=== PATIENT | female | born 1980 | race Caucasian/White ===

== ENCOUNTER 2018-06-11 10:46 | Emergency (ER) | payer BC, OTHER ==
--- OUTSIDE RECORDS SUMMARY | 2018-06-11 10:59 | XMS REPORT | Continuity of Care Document ---
:1980 Author Organization Interface Problems Problem Status Onset Classification Date Comments Source Date Reported Other 11/24/19 06/02/2018 [place] postprocedural 18 [place] complications and disorders of digestive system Urinary tract 11/10/19 05/24/2018 [place] infection, site 18 [place] not specified Urinary tract 11/05/19 05/24/2018 [place] infection 18 [place] Other malaise 05/01/19 07/28/2017 [place] 18 [place] Malaise 04/21/19 07/28/2017 [place] 18 [place] POSSIBLE KIDNEY Active 05/23/19 [place] STONES 16 [place] Discharge 05/23/19 05/26/2015 [place] Diagnosis: Acute 16 [place] lower UTI Discharge 05/23/19 05/26/2015 [place] Diagnosis: Anemia 16 [place] Discharge 05/23/19 05/26/2015 [place] Diagnosis: Acute 16 [place] gastritis Discharge 09/30/19 10/02/2014 [place] Diagnosis: Acute 15 [place] urinary tract infection URINARY PROBLEM Active 09/29/19 [place] 15 [place] Ureteric Active 01/08/20 Problem 09/30/2017 Data migrated [facility] OPID stone<sup>1</sup> 14 from [facility] [place], 09/05/14. [place] Ureteric Active 01/08/20 Problem 06/02/2018 Data migrated [facility] [place] stone<sup>2</sup> 14 from [facility] [place] [facility] on 09/05/14. LOWER RIGHT SIDE Active 12/29/19 [place] ABDOMINAL PAIN 14 [place] RENAL STONE Active 12/29/19 [place] 14 [place] FAST HEART RATE Active 10/22/19 [place] 12 [place] CHEST PAIN Active 10/19/19 [place] 12 [place] Abdominal Active Problem 06/02/2018 right side [facility] [place] pain<sup>1</sup> abdominal [place] pain Acid reflux Active Problem 06/02/2018 [place] Hiatal hernia Active Problem 06/02/2018 [place] Gastro-esophageal 05/24/2018 [place] reflux disease [place] without esophagitis Personal history 06/02/2018 [place] of nicotine [place] dependence Ileus, unspecified 06/02/2018 [place] Diaphragmatic 06/02/2018 [place] hernia without [place] obstruction or gangrene Dehydration 06/02/2018 [place] Anemia in other 06/02/2018 [place] chronic diseases [place] classified elsewhere Gastro-esophageal 05/28/2018 [place] reflux disease [place] with esophagitis Chronic 05/28/2018 [place] cholecystitis [place] CALCULUS OF KIDNEY Active [place] Medications Medication Details Route Status Patient Ordering Order Source Instructions Provider Date Ondansetron 4 MG 4 mg=1 tab, PO, Active Oral Tablet Q8H, PRN Nausea, 2017 [place] [Zofran] # 15 tab, 0 [place] Refill(s) Acetaminophen 325 1 tab, PO, Q6H, Active MG / Hydrocodone PRN Pain Score 2017 [place] Bitartrate 5 MG 1-3, 0 Refill(s) [place] Oral Tablet [[place] 5/325] Acetaminophen 325 1 tab, Route: PO, No Longer MG / Hydrocodone Drug Form: TAB, Active 2017 [place] Bitartrate 5 MG Dosing Weight [place] Oral Tablet [[place] 67.898, kg, Q6H, 5/325] PRN Pain Score 1-3, Start date: 11/12/17 20:02:00 CDT, Duration: 30 day, Stop date: 12/12/17 20:01:00 CDTNotes: (Same as: [place] 325/5) Do not exceed 4gm/day of acetaminophen. Saline Flush 0.9% 10 ml, Route: No Longer IVP, Drug Form: Active 2018 [place] INJ, Dosing [place] Weight 67.841, kg, PRN, PRN Line Flush, Start date: 11/11/17 15:47:00 CDT, Duration: 30 day, Stop date: 12/11/17 15:46:00 CDTNotes: (Same as: BD Posiflush) Ondansetron 4 mg, 2 mL, No Longer Route: IVP, Drug Active 2017 [place] form: INJ, Q6H, [place] Dosing Weight 67.841, kg, PRN Nausea & Vomiting, Start date: 11/11/17 15:47:00 CDT, Duration: 30 day, Stop date: 12/11/17 15:46:00 CDTNotes: (Same as: Shikha) MEDICATION WASTE Product Size: 4 mg Product Wasted: ___ mg Morphine 2 mg, 1 mL, No Longer Route: IVP, Drug Active 2017 [place] form: SOLN, Q4H, [place] Dosing Weight 67.841, kg, PRN Pain Score 7-10, Start date: 11/11/17 15:47:00 CDT, Duration: 30 day, Stop date: 12/11/17 15:46:00 CDT Sodium Chloride 1,000 mL, Rate: No Longer 0.9% IV 1,000 mL 100 ml/hr, Infuse Active 2017 [place] over: 10 hr, [place] Route: IV, Dosing Weight 67.841 kg, Total Volume: 1,000, Start date: 11/11/17 15:47:00 CDT, Duration: 30 day, Stop date: 12/11/17 15:46:00 CDT, 1.76, m2 Acetaminophen 650 mg, 2 tab, No Longer Route: PO, Drug Active 2017 [place] form: TAB, Q4H, [place] Dosing Weight 67.841, kg, PRN Pain 1-3/Temp > 100.4 F, Start date: 11/11/17 15:47:00 CDT, Duration: 30 day, Stop date: 12/11/17 15:46:00 CDTNotes: Do not exceed 4 gm/day. (Same as: Tylenol) Morphine 4 mg, Route: IVP, Inactive ONCE, Dosing 2018 [place] Weight 67.841, [place] kg, Priority: STAT, Start date: 11/11/17 12:28:00 CDT, Stop date: 11/11/17 12:28:00 CDT Omnipaque 350 100 mL, Route: Inactive injectable IVP, Dosing 2018 [place] solution Weight 67.841, [place] kg, ONCALL, GFR > 45 mL/min, STAT, Start date: 11/11/17 11:18:00 CDT, Duration: 1 doses or times Sodium Chloride 1,000 mL, Infuse Inactive 0.9% (Bolus) IV Over: 1 hr, 2017 [place] Route: IV, ONCE, [place] Priority: STAT, Dosing Weight 67.841 kg, Start date: 11/11/17 10:47:00 CDT, Stop date: 11/11/17 10:47:00 CDT Zofran 4 mg, Route: IVP, Inactive Drug form: INJ, 2018 [place] ONCE, Dosing [place] Weight 67.841, kg, Priority: STAT, Start date: 11/11/17 10:47:00 CDT, Stop date: 11/11/17 10:47:00 CDT Morphine 4 mg, Route: IVP, Inactive ONCE, Dosing 2018 [place] Weight 67.841, [place] kg, Priority: STAT, Start date: 11/11/17 10:47:00 CDT, Stop date: 11/11/17 10:47:00 CDT Saline Flush 0.9% 10 mL, Route: No Longer IVP, Drug Form: Active 2018 [place] INJ, Dosing [place] Weight 67.841, kg, PRN, PRN Line Flush, Start date: 11/11/17 10:14:00 CDT, Duration: 30 day, Stop date: 12/11/17 10:13:00 CDTNotes: (Same as: BD Posiflush) Sulfamethoxazole 1 tab, PO, BID, X No Longer 800 MG / 7 day, # 14 tab, Active 2018 [place] Trimethoprim 160 0 Refill(s) [place] MG Oral Tablet [Bactrim] Acetaminophen 300 1 tab, PO, Q4H, No Longer MG / Codeine PRN Pain, X 7 Active 2018 [place] Phosphate 30 MG day, # 30 tab, 0 [place] Oral Tablet Refill(s) [Tylenol with Codeine #3] Lovenox 40 mg, 0.4 mL, Inactive Route: SUB-Q, 2017 [place] Drug form: INJ, [place] Daily, Dosing Weight 70.114, kg, Start date: 11/08/17 9:00:00 CDT, Duration: 30 day, Stop date: 12/07/17 9:00:00 CDTNotes: (Same as: Lovenox) ketOROLAC 30 mg/mL 30 mg, 1 mL, No Longer injectable Route: IVP, Drug Active 2018 [place] solution form: INJ, Q6H, [place] Dosing Weight 70.114, kg, Start date: 11/07/17 12:00:00 CDT, Duration: 4 day, Stop date: 11/11/17 6:00:00 CDTNotes: (Same as:Toradol) IV bolus must be given >15 seconds. Give IM administration slowly and deeply into the muscle. Not for use > 4 days MEDICATION WASTE Product Size: 30 mg Product Wasted: ___ mg Ondansetron 4 mg, 2 mL, Inactive Route: IVP, Drug 2017 [place] form: INJ, ONCE, [place] Dosing Weight 70.114, kg, PRN Nausea & Vomiting, Start date: 11/07/17 11:33:00 CDTNotes: (Same as: Zofran) MEDICATION WASTE Product Size: 4 mg Product Wasted: ___ mg Oxycodone 10 mg, 2 tab, Inactive Route: PO, Drug 2017 [place] form: TAB, Q4H, [place] Dosing Weight 70.114, kg, PRN Pain Score 7-10, Start date: 11/07/17 11:33:00 CDT, Duration: 30 day, Stop date: 12/07/17 11:32:00 CDTNotes: (Same as: Roxicodone) Naloxone 0.4 mg, 1 mL, Inactive Route: IVP, Drug 2017 [place] form: INJ, Q2MIN, [place] Dosing Weight 70.114, kg, PRN Narcotic Reversal, Start date: 11/07/17 11:33:00 CDT, Duration: 8 doses or times, Stop date: Limited # of timesNotes: Same as Narcan Flumazenil 0.2 mg, 2 mL, Inactive Route: IVP, Drug 2017 [place] form: INJ, PRN, [place] Dosing Weight 70.114, kg, PRN Benzodiazepine Reversal, Initial dose, Start date: 11/07/17 11:33:00 CDT, Duration: 30 day, Stop date: 12/07/17 11:32:00 CDTNotes: (Same as: Romazicon) Hydromorphone 0.5 mg, 0.5 mL, Inactive Route: IVP, Drug 2017 [place] form: INJ, Q5Min, [place] Dosing Weight 70.114, kg, PRN Pain Score 7-10, Start date: 11/07/17 10:43:00 CDT, Duration: 4 doses or times, Stop date: Limited # of timesNotes: Same as: Dilaudid Ondansetron 4 mg, 2 mL, Inactive Route: IVP, Drug 2017 [place] form: INJ, ONCE, [place] Dosing Weight 70.114, kg, PRN Nausea & Vomiting, Start date: 11/07/17 10:43:00 CDTNotes: (Same as: Zofran) MEDICATION WASTE Product Size: 4 mg Product Wasted: ___ mg Naloxone 0.4 mg, 1 mL, Inactive Route: IVP, Drug 2017 [place] form: INJ, Q2MIN, [place] Dosing Weight 70.114, kg, PRN Narcotic Reversal, Start date: 11/07/17 10:43:00 CDT, Duration: 8 doses or times, Stop date: Limited # of timesNotes: Same as Narcan Flumazenil 0.2 mg, 2 mL, Inactive Route: IVP, Drug 2017 [place] form: INJ, PRN, [place] Dosing Weight 70.114, kg, PRN Benzodiazepine Reversal, Initial dose, Start date: 11/07/17 10:43:00 CDT, Duration: 30 day, Stop date: 12/07/17 10:42:00 CDTNotes: (Same as: Romazicon) Fentanyl 25 microgram, 0.5 Inactive mL, Route: IVP, 2018 [place] Drug form: INJ, [place] Q5Min, Dosing Weight 70.114, kg, PRN Pain Score 4-6, Priority: Routine, Start date: 11/07/17 10:43:00 CDT, Duration: 4 doses or times, Stop date: Limited # of timesNotes: (Same as: Sublimaze) Preservative free. neostigmine (ANES) Route: IV, Drug Inactive form: INJ, ONCE, 2018 [place] Stop date: [place] 11/07/17 10:10:00 CDT glycopyrrolate Route: IV, Drug Inactive (ANES) form: INJ, ONCE, 2017 [place] Stop date: [facility] 11/07/17 10:10:00 CDT ondansetron (ANES) Route: IV, Drug Inactive form: INJ, ONCE, 2017 [place] Stop date: [facility] 11/07/17 10:10:00 CDT Morphine 4 mg, 1 mL, No Longer Route: IVP, Drug Active 2017 [place] form: SOLN, Q4H, [place] Dosing Weight 70.114, kg, PRN Pain Score 7-10, Start date: 11/07/17 9:51:00 CDT, Duration: 30 day, Stop date: 12/07/17 9:50:00 CDTNotes: (Same as:MORPhine Sulfate) Acetaminophen 325 1 tab, Route: PO, No Longer MG / Hydrocodone Drug Form: TAB, Active 2017 [place] Bitartrate 5 MG Dosing Weight [place] Oral Tablet [[place] 70.114, kg, Q6H, 5/325] PRN Pain Score 1-3, Start date: 11/07/17 9:51:00 CDT, Duration: 30 day, Stop date: 12/07/17 9:50:00 CDTNotes: (Same as: [place] 325/5) Do not exceed 4gm/day of acetaminophen. Zofran 4 mg, 2 mL, No Longer Route: IVP, Drug Active 2017 [place] form: INJ, Q8H, [place] Dosing Weight 70.114, kg, PRN Nausea, Start date: 11/07/17 9:50:00 CDT, Duration: 30 day, Stop date: 12/07/17 9:49:00 CDTNotes: (Same as: Zofran) MEDICATION WASTE Product Size: 4 mg Product Wasted: ___ mg D5W 1/2NS + KCL 1,000 mL, Rate: No Longer 20mEq/L 1000ml 125 ml/hr, Infuse Active 2017 [place] (Premix) 1,000 mL over: 8 hr, [place] Route: IV, Dosing Weight 70.114 kg, Total Volume: 1,000, Start date: 11/07/17 9:50:00 CDT, Duration: 30 day, Stop date: 12/07/17 9:49:00 CDT, 1.79, [id number]: PREMIX IV - Do Not Alter WASTE: F/P - Sink; E - Municipal Trash Bin phenol 1 spray, Route: No Longer TOP, Daily, Drug Active 2017 [place] form: ARVIND, PRN [place] Sore Throat, Start date: 11/07/17 9:50:00 CDT, Duration: 30 day, Stop date: 12/07/17 9:49:00 CDTNotes: Chloraseptic [place] (Same as: Chloraseptic, Sore Throat [place]) WASTE: F/P - Black; E - Municipal Trash Bin metoprolol (ANES) Route: IV, Drug Inactive form: INJ, ONCE, 2017 [place] Stop date: 11/07/17 9:38:00 CDT hydromorphone Route: IV, Drug Inactive (ANES) form: INJ, ONCE, 2017 [place] Stop date: 11/07/17 9:28:00 CDT dexamethasone Route: IV, Drug Inactive (ANES) form: INJ, ONCE, 2017 [place] Stop date: 11/07/17 9:08:00 CDT metoclopramide Route: IV, Drug Inactive (ANES) form: INJ, ONCE, 2017 [place] Stop date: 11/07/17 9:03:00 CDT rocuronium (ANES) Route: IV, Drug Inactive form: INJ, ONCE, 2017 [place] Stop date: 11/07/17 9:03:00 CDT midazolam (ANES) Route: IV, Drug Inactive form: SOLN, ONCE, 2017 [place] Stop date: 11/07/17 9:03:00 CDT fentaNYL (ANES) Route: IV, Drug Inactive form: INJ, ONCE, 2017 [place] Stop date: 11/07/17 9:03:00 CDT lidocaine (ANES) Route: IV, Drug Inactive form: INJ, ONCE, 2017 [place] Stop date: [facility] 11/07/17 9:03:00 CDT propofol (ANES) Route: IV, Drug Inactive form: INJ, ONCE, 2017 [place] Stop date: [place] 11/07/17 9:03:00 CDT Sodium Chloride Route: IV, Drug Inactive 0.9% IV (ANES) 50 form: INJ, Start 2017 [place] mL + clindamycin date: 11/07/17 [place] (ANES) 150 mg 8:27:00 CDT, Stop date: 11/07/17 9:27:00 CDT Lactated Ringers Route: IV, Total Inactive Injection IV Volume: 1,000, 2017 [place] (ANES) 1000 mL Start date: 11/07/17 8:10:00 CDT, Stop date: 11/07/17 9:10:00 CDT Tylenol 1,000 mg, Route: Inactive PO, PRE OP, 2018 [place] Dosing Weight [place] 68.182, kg, Start date: 11/07/17 7:00:00 CDT, Duration: 30 day, Stop date: 12/07/17 6:59:00 CDT Celebrex 400 mg, Route: Inactive PO, Drug form: 2018 [place] CAP, PRE OP, [place] Dosing Weight 68.182, kg, Start date: 11/07/17 7:00:00 CDT, Duration: 30 day, Stop date: 12/07/17 6:59:00 CDT gabapentin 300 MG 300 mg, 1 cap, Inactive Oral Capsule Route: PO, PRE 2017 [place] OP, Dosing Weight [place] 68.182, kg, Start date: 11/07/17 7:00:00 CDT, Duration: 30 day, Stop date: 12/07/17 6:59:00 CDT Lidocaine 0.5 mL, Route: Inactive Hydrochloride 10 INTRADERM, Drug 2017 [place] MG/ML Injectable Form: INJ, Dosing [place] Solution Weight 68.182, kg, ONCALL, Start date: 11/07/17 7:00:00 CDT, Duration: 1 doses or timesNotes: Preservative free. (Same as: Xylocaine MPF) Famotidine 40 mg, 2 tab, Inactive Route: PO, Drug 2017 [place] form: TAB, PRE [place] OP, Dosing Weight 68.182, kg, Start date: 11/07/17 7:00:00 CDT, Duration: 1 doses or timesNotes: (Same as: Pepcid) Calcium Chloride 1,000 mL, Rate: Inactive 0.0014 MEQ/ML / 25 ml/hr, Infuse 2018 [place] Potassium Chloride over: 40 hr, [place] 0.004 MEQ/ML / Route: IV, Dosing Sodium Chloride Weight 68.182 kg, 0.103 MEQ/ML / Total Volume: Sodium Lactate 1,000, Start 0.028 MEQ/ML date: 11/07/17 Injectable 6:12:00 CDT, Solution Duration: 30 day, Stop date: 12/07/17 6:11:00 CDT, 1.76, m2 Cleocin HCl 900 mg, 50 mL, Inactive Route: IVPB, Drug 2018 [place] form: INJ, PRE [place] OP, Start date: 11/07/17 5:00:00 CDT, Duration: 30 day, Stop date: 12/07/17 4:59:00 CDT, ABX Indication: Surgical Prophylaxis Acetaminophen 300 1 - 2 tab, PO, No Longer MG / Codeine Q4H, PRN Pain, X Active 2018 [place] Phosphate 30 MG 2 day, # 12 tab, [place] Oral Tablet 0 Refill(s) [Tylenol with Codeine #3] ciprofloxacin 500 500 mg=1 tab, PO, No Longer mg oral tablet Q12H, X 7 day, # Active 2018 [place] 14 tab, 0 [place] Refill(s) Cipro 500 mg, Route: Inactive PO, ONCE, Dosing 2018 [place] Weight 68.182, [place] kg, Priority: STAT, Start date: 11/04/17 17:13:00 CDT, Stop date: 11/04/17 17:13:00 CDT, ABX Indication: Urinary Tract Infection Sulfamethoxazole 1 tab, Route: PO, Inactive 800 MG / Drug Form: TAB, 2018 [place] Trimethoprim 160 Dosing Weight [place] MG Oral Tablet 68.182, kg, ONCE, [Bactrim] STAT, Start date: 11/04/17 17:10:00 CDT, Stop date: 11/04/17 17:10:00 CDTNotes: One DS tablet=trimethopr im 160mg + sulfamethoxazole 800 mg Dose based on trimethoprim component On empty stomach with a glass of water. (Same As: Bactrim DS, Septra DS) Ketorolac 30 mg, 1 mL, Inactive Route: IVP, Drug 2018 [place] form: INJ, ONCE, [place] Dosing Weight 68.182, kg, Priority: STAT, Start date: 11/04/17 14:34:00 CDT, Stop date: 11/04/17 14:34:00 CDTNotes: (Same as:Toradol) IV bolus must be given >15 seconds. Give IM administration slowly and deeply into the muscle. Not for use > 4 days MEDICATION WASTE Product Size: 30 mg Product Wasted: ___ mg Saline Flush 0.9% 10 mL, Route: Inactive IVP, Drug Form: 2018 [place] INJ, Dosing [place] Weight 68.182, kg, PRN, PRN Line Flush, Start date: 11/04/17 14:34:00 CDT, Duration: 30 day, Stop date: 12/04/17 14:33:00 CDTNotes: (Same as: BD Posiflush) Sodium Chloride 1,000 mL, 1000 Inactive 0.9% (Bolus) IV ml/hr, Infuse 2017 [place] Over: 1 hr, [place] Route: IV, 1,000, Drug form: INJ, ONCE, Priority: STAT, Dosing Weight 68.182 kg, Start date: 11/04/17 14:34:00 CDT, Stop date: 11/04/17 14:34:00 CDT Ranitidine 75 MG 75 mg=1 tab, PO, No Longer Oral Tablet Daily, 0 Active 2018 [place] [Zantac] Refill(s) [place] Fluconazole 150 MG 150 mg=1 tab, PO, Active Oral Tablet ONCE, # 1 tab, 0 2018 [place] [Diflucan] Refill(s) [place] Benadryl 12.5 mg, 0.25 mL, Inactive Route: IVP, Drug 2018 [place] form: INJ, ONCE, [place] Dosing Weight 70.455, kg, Priority: STAT, Start date: 04/21/17 8:03:00 ELIGIBILITY CLERK, Stop date: 04/21/17 8:03:00 CSTNotes: (Same as: Benadryl) Rocephin 1 gm, Route: Inactive IVPB, ONCE, 2018 [place] Dosing Weight [place] 70.455, kg, Priority: STAT, Start date: 04/21/17 8:03:00 ELIGIBILITY CLERK, Stop date: 04/21/17 8:03:00 ELIGIBILITY CLERK, ABX Indication: Urinary Tract InfectionNotes: (Same As: Rocephin). Use with 100 mL NS and infuse over 30 min MEDICATION WASTE Product Size: 1000 mg Product Wasted: ___ mg Sodium Chloride 1,000 mL, 1000 Inactive 0.9% (Bolus) IV ml/hr, Infuse 2017 [place] Over: 1 hr, [place] Route: IV, 1,000, Drug form: INJ, ONCE, Priority: STAT, Dosing Weight 70.455 kg, Start date: 04/21/17 8:01:00 ELIGIBILITY CLERK, Stop date: 04/21/17 8:01:00 ELIGIBILITY CLERK Saline Flush 0.9% 10 mL, Route: Inactive IVP, Drug Form: 2018 [place] INJ, Dosing [place] Weight 70.455, kg, PRN, PRN Line Flush, Start date: 04/21/17 8:01:00 ELIGIBILITY CLERK, Duration: 30 day, Stop date: 05/21/17 8:00:00 CSTNotes: (Same as: BD Posiflush) tramadol 50 mg=1 tab, PO, Active hydrochloride 50 BID, X 15 day, # 2016 [place] MG Oral Tablet 30 tab, 0 [place] Refill(s) Nitrofurantoin 100 100 mg=1 cap, PO, Active MG Oral Capsule BID, X 7 day, # 2016 [place] [Macrobid] 14 cap, 0 [place] Refill(s) ferrous sulfate 325 mg=1 tab, PO, Active 325 mg oral Daily, # 30 tab, 2016 [place] enteric coated 0 Refill(s) [place] tablet omeprazole 40 mg 40 mg=1 cap, PO, Active oral delayed Daily, # 30 cap, 2016 [place] release capsule 0 Refill(s) [place] Morphine 2 mg, Route: IVP, Inactive Drug form: INJ, 2016 [place] ONCE, Dosing [place] Weight 70.455, kg, Priority: STAT, Start date: 05/23/15 15:23:00, Stop date: 05/23/15 15:23:00 Saline Flush 0.9% 10 mL, Route: Inactive IVP, Drug Form: 2016 [place] INJ, Dosing [place] Weight 70.455, kg, PRN, PRN Line Flush, Start date: 05/23/15 14:16:00, Duration: 30 day, Stop date: 06/22/15 15:15:00Notes: (Same as: BD Posiflush) Sulfamethoxazole 1 tab, PO, BID, X Active 800 MG / 10 day, # 20 tab, 2014 [place] Trimethoprim 160 0 Refill(s) [place] MG Oral Tablet [Bactrim] Clindamycin 600 mg, 4 mL, Inactive Route: IVPB, Drug 2014 [place] form: INJ, ONCE, [place] Dosing Weight 73.636, kg, Priority: STAT, Start date: 09/29/14 0:20:00, Stop date: 09/29/14 0:20:00Notes: (Same As: Cleocin) Zofran 4 mg, 2 mL, Inactive Route: IVP, Drug 2014 [place] form: INJ, ONCE, [place] Dosing Weight 73.636, kg, Priority: STAT, Start date: 09/29/14 0:09:00, Stop date: 09/29/14 0:09:00Notes: (Same as: Zofran) MEDICATION WASTE Product Size: 4 mg Product Wasted: ___ mg Morphine 4 mg, 2 mL, Inactive Route: IVP, Drug 2014 [place] form: INJ, ONCE, [place] Dosing Weight 73.636, kg, Priority: STAT, Start date: 09/29/14 0:09:00, Stop date: 09/29/14 0:09:00Notes: (Same as:MORPhine Sulfate) Sodium Chloride 1,000 mL, 1000 Inactive 0.154 MEQ/ML ml/hr, Infuse 2014 [place] Injectable Over: 1 hr, [place] Solution Route: IV, 1,000, Drug form: INJ, ONCE, Priority: STAT, Dosing Weight 73.636 kg, Start date: 09/29/14 0:09:00, Duration: 1 doses or times, Stop date: 09/29/14 0:09:00 clindamycin 300 mg 300 mg=1 cap, PO, Active oral capsule Q8H, # 21 cap, 0 2013 [place] Refill(s) [place] Morphine 2 mg, 1 mL, Inactive Route: IVP, Drug 2013 [place] form: INJ, Q5Min, [place] Dosing Weight 71.989, kg, PRN Pain Score 4-6, Start date: 12/29/13 13:11:00, Duration: 5 doses or times, Stop date: Limited # of timesNotes: (Same as:MORPhine Sulfate) Ondansetron 4 mg, 2 mL, Inactive Route: IVP, Drug 2013 [place] form: INJ, ONCE, [place] Dosing Weight 71.989, kg, PRN Nausea & Vomiting, Start date: 12/29/13 12:58:00Notes: (Same as: Zofran) Flumazenil 0.2 mg, 2 mL, Inactive Route: IVP, Drug 2013 [place] form: INJ, PRN, [place] Dosing Weight 71.989, kg, PRN Benzodiazepine Reversal, Initial dose, Start date: 12/29/13 12:58:00, Duration: 30 day, Stop date: 01/28/14 12:57:00Notes: (Same as: Romazicon) Naloxone 0.04 mg, 0.1 mL, Inactive Route: IVP, Drug 2013 [place] form: INJ, Q2MIN, [place] Dosing Weight 71.989, kg, PRN Narcotic Reversal, Start date: 12/29/13 12:58:00, Duration: 8 doses or times, Stop date: Limited # of timesNotes: Same as Narcan Hydromorphone 0.5 mg, 0.25 mL, Inactive Route: IVP, Drug 2013 [place] form: INJ, Q5Min, [place] Dosing Weight 71.989, kg, PRN Pain Score 7-10, Start date: 12/29/13 12:58:00, Duration: 4 doses or times, Stop date: Limited # of timesNotes: (Same as: Dilaudid) Acetaminophen 1,000 mg, 100 mL, Inactive Route: IVPB, Drug 2013 [place] form: INJ, ONCE, [place] Dosing Weight 71.989, kg, PRN Pain Score 1-3, Start date: 12/29/13 12:58:00, Duration: 1 doses or times, Stop date: Limited # of timesNotes: Infuse over 15 minutes Do not exceed 4gm/day of acetaminophen solifenacin 5 mg=1 tab, PO, Active succinate 5 MG Daily, # 30 tab, 2014 [place] Oral Tablet 0 Refill(s) [place] [VESICARE] Tamsulosin =1 tab, PO, Active hydrochloride 0.4 Daily, # 14 tab, 2014 [place] MG Oral Capsule 0 Refill(s) [place] [Flomax] tramadol 1 - 2 tabs, PO, Active hydrochloride 50 Q4-6H, as needed 2013 [place] MG Oral Tablet for pain, # 30 [place] [Ultram] tab, 0 Refill(s) Clindamycin 900 mg, 6 mL, Inactive Route: IVPB, Drug 2013 [place] form: INJ, ONCE, [place] Dosing Weight 71.989, kg, Start date: 12/29/13 11:33:00, Stop date: 12/29/13 11:33:00Notes: (Same As: Cleocin) Lactated Ringers 1,000 mL, Rate: Inactive IV 1,000 mL 40 ml/hr, Infuse 2013 [place] over: 25 hr, [place] Route: IV, Dosing Weight 71.989 kg, Total Volume: 1,000, Start date: 12/29/13 10:41:00, Duration: 1 doses or times, Stop date: 12/30/13 11:40:00 Methenamine 162 MG 2 tab, PO, TID, Inactive / Sodium as needed for 2013 [place] Salicylate 162.5 inflammation [place] MG Oral Tablet [Cystex] Saline Flush 0.9% 10 ml, Route: Inactive IVP, Drug Form: 2013 [place] INJ, Dosing [place] Weight 74.091, kg, PRN, PRN Line Flush, Start date: 12/29/13 4:22:00, Duration: 30 day, Stop date: 01/28/14 4:21:00Notes: (Same as: BD Posiflush) Sodium Chloride 1,000 mL, Rate: Inactive 0.154 MEQ/ML 125 ml/hr, Infuse 2013 [place] Injectable over: 8 hr, [place] Solution Route: IV, Dosing Weight 74.091 kg, Total Volume: 1,000, Start date: 12/29/13 4:22:00, Duration: 30 day, Stop date: 01/28/14 4:21:00 Morphine 4 mg, 2 mL, Inactive Route: IVP, Drug 2013 [place] form: INJ, Q3H, [place] Dosing Weight 74.091, kg, PRN Pain Score 4-6, Start date: 12/29/13 4:22:00, Duration: 30 day, Stop date: 01/28/14 4:21:00Notes: (Same as:MORPhine Sulfate) Ondansetron 4 mg, 2 mL, Inactive Route: IVP, Drug 2013 [place] form: INJ, Q8H, [place] Dosing Weight 74.091, kg, PRN Nausea & Vomiting, Start date: 12/29/13 4:22:00, Duration: 30 day, Stop date: 01/28/14 4:21:00Notes: (Same as: Zofran) Flomax 0.4 mg, 1 cap, Inactive Route: PO, Drug 2013 [place] form: CAP, ONCE, [place] Dosing Weight 74.091, kg, Start date: 12/29/13 3:04:00, Stop date: 12/29/13 3:04:00Notes: (Same As: Flomax) "Do Not Crush" Ketorolac 30 mg, 1 mL, Inactive Route: IVP, Drug 2013 [place] form: INJ, ONCE, [place] Dosing Weight 74.091, kg, Priority: STAT, Start date: 12/29/13 2:49:00, Stop date: 12/29/13 2:49:00Notes: (Same as:Toradol) IV bolus must be given >15 seconds. Give IM administration slowly and deeply into the muscle. Not for use > 4 days Omnipaque 300 100 mL, 100 Inactive ml/hr, Route: IV, 2013 [place] Drug Form: SOLN, [place] ONCE, Start date: 12/29/13 2:16:00, Stop date: 12/29/13 2:16:00Notes: (Same as:Omnipaque 300). Morphine 4 mg, Route: IVP, Inactive Drug form: INJ, 2013 Sugar ONCE, Dosing Land Weight 74.091, kg, Priority: STAT, Start date: 12/29/13 1:37:00, Stop date: 12/29/13 1:37:00 Ondansetron 4 mg, 2 mL, Inactive Route: IVP, Drug 2013 Sugar form: INJ, ONCE, Land Dosing Weight 68.295, kg, Priority: STAT, Start date: 12/29/13 0:18:00, Stop date: 12/29/13 0:18:00Notes: (Same as: Zofran) Morphine 4 mg, 2 mL, Inactive Route: IVP, Drug 2013 Sugar form: INJ, ONCE, Land Dosing Weight 68.295, kg, Priority: STAT, Start date: 12/29/13 0:18:00, Stop date: 12/29/13 0:18:00Notes: (Same as:MORPhine Sulfate) Sodium Chloride 1,000 mL, 1000 Inactive 0.154 MEQ/ML ml/hr, Infuse 2013 Sugar Injectable Over: 1 hr, Land Solution Route: IV, 1,000, Drug form: INJ, ONCE, Priority: STAT, Dosing Weight 68.295 kg, Start date: 12/29/13 0:18:00, Duration: 1 doses or times, Stop date: 12/29/13 0:18:00 Saline Flush 0.9% 10 mL, Route: Inactive IVP, Drug Form: 2013 Sugar INJ, Dosing Land Weight 68.295, kg, PRN, PRN Line Flush, Start date: 12/29/13 0:18:00, Duration: 30 day, Stop date: 01/28/14 0:17:00Notes: (Same as: BD Posiflush) potassium chloride 20 mEq, 1 tab, PO Active Saima 20 mEq oral PO, BID, 10 tab, 2011 Sugar tablet, extended Substitution Land release Allowed NS 1,000 mL 1,000 mL, Rate: IV No Longer Saima 1,000 ml/hr, Active 2011 [place] Infuse over: 1 [place] hr, Route: IV, Dosing Weight 74.091 kg, Total Volume: 1,000, Start date: 10/22/11 18:49:00, Duration: 1 doses or times, Stop date: 10/22/11 19:48:00, Bolus DoseBolus Dose potassium chloride 40 mEq, 2 tab, PO No Longer Lauren Route: PO, Drug Active 2011 [place] form: ERTAB, [place] Daily, Priority: Routine, Start date: 10/20/11 9:00:00, Duration: 30 day, Stop date: 11/18/11 9:00:00 Bactrim DS oral 1 tab, PO, BID, PO Active [place] tablet 10 tab, 2011 [place] Substitution [place] Allowed, Soft Stop, TAB potassium chloride 40 mEq, 2 tab, PO No Longer Lauren Route: PO, Drug Active 2011 [place] form: ERTAB, [place] ONCE, Priority: Routine, Start date: 10/19/11 14:01:00, Stop date: 10/19/11 14:01:00 Saline Flush 0.9% 5 ml, Route: IVP, IVP No Longer Lauren Drug Form: INJ, Active 2011 [place] PRN, PRN Line [place] Flush, Start date: 10/19/11 12:00:00, Duration: 24 hr, Stop date: 10/20/11 11:59:00 Sodium Chloride 1,000 mL, Rate: IV No Longer Walton 0.9% (Bolus) IV 1,000 ml/hr, Active 2011 [place] 1,000 mL Infuse over: 1 [place] hr, Route: IV, Total Volume: 1,000, Bolus dose, Priority: STAT, Start date: 10/19/11 12:00:00, Duration: 1 doses or times, Stop date: 10/19/11 12:59:00 Allergies, Adverse Reactions, Alerts Substance Category Reaction Severity Reaction Status Date Comments Source type Reported levofloxacin<s Assertion Drug Active Data MH up>1</sup> allergy migrated [place] from [employer] [facility] on 08/07/14. Originally documented as LEVAQUIN. Levaquin drug Allergy Active MH allergy [place] NKFA Assertion Food Active MH allergy [place] Ceftin drug Allergy Active MH allergy [place] Rocephin drug Allergy Active MH allergy [place] Vicodin Assertion rash, Drug Active MH rapid allergy [place] heart [place] beat, anxiety attack cephalosporins Assertion Drug Active MH allergy [place] Immunizations Immunization Date Given Site Status Last Updated Comments Source Results Order Name Results Value Reference Date Interpretation Comments Source Range CHEM PANEL eGFR 128 11/12 Result Comment: The eGFR is calculated using the CKD-EPI formula. In most young, healthy individuals the eGFR will be >90 mL/ min/1.73m2. The eGFR declines with age. An eGFR of 60-89 may be normal in MH mL/min/1.73 /2018 some populations, particularly the elderly, for whom the CKD-EPI formula has not been extensively validated. Use of the eGFR is not recommended in the following populations: [place] m2 [place] Individuals with unstable creatinine concentrations, including patients and those with serious co-morbid conditions. Patients with extremes in muscle mass or diet. The data above are obtained from the National Kidney Disease Education Program (NKDEP) which additionally recommends that when the eGFR is used in patients with extremes of body mass index for purposes of drug dosing, the eGFR should be multiplied by the estimated BMI. CHEM PANEL CO2 25 meq/L 24 - 32 11/12 [place] CHEM PANEL Chloride Lvl 109 meq/L 95 - 109 11/12 [place] CHEM PANEL Potassium Lvl 3.7 meq/L 3.5 - 5.1 11/12 [place] CHEM PANEL Calcium Lvl 8.2 mg/dL 8.5 - 10.5 11/12 [place] CHEM PANEL AGAP 10.7 meq/L 10.0 - 11/12 MH 20.0 [place] CHEM PANEL Glucose Lvl 81 mg/dL 70 - 99 11/12 [place] CHEM PANEL Creatinine 0.45 mg/dL 0.50 - 11/12 [facility] Lvl 1.40 /2017 [place] CHEM PANEL BUN 9 mg/dL 7 - 22 11/12 [place] CHEM PANEL Sodium Lvl 141 meq/L 135 - 145 11/12 [place] HEMATOLOGY Monocytes # 0.8 K/CMM 0.0 - 0.8 11/12 [place] HEMATOLOGY Lymphocytes # 2.1 K/CMM 1.0 - 5.5 11/12 [place] HEMATOLOGY Neutrophils # 5.4 K/CMM 1.5 - 8.1 11/12 [place] HEMATOLOGY Hypochrom 1+ None Seen 11/12 [place] (11/12/17 4:26 AM) [place] HEMATOLOGY Microcyte 1+ None Seen 11/12 [place] *ABN* [place] (11/12/17 4:26 AM) HEMATOLOGY Basophils # 0.0 K/CMM 0.0 - 0.2 11/12 [place] HEMATOLOGY Eosinophils # 0.2 K/CMM 0.0 - 0.5 11/12 [place] HEMATOLOGY Basophils 0.2 % 0.0 - 1.0 11/12 [place] HEMATOLOGY Eosinophils 2.2 % 0.0 - 4.0 11/12 [place] HEMATOLOGY Lymphocytes 25.3 % 20.0 - 08 MH 40.0 [place] HEMATOLOGY Segs 63.2 % 45.0 - 11/12 MH 75.0 [place] HEMATOLOGY Monocytes 9.1 % 2.0 - 12.0 11/12 [place] HEMATOLOGY MPV 7.3 fL 7.4 - 10.4 11/12 [place] HEMATOLOGY RDW 17.5 % 11.5 - 11/12 MH 14.5 [place] HEMATOLOGY Platelet 391 K/CMM 133 - 450 11/12 [place] HEMATOLOGY MCH 21.2 pg 27.0 - 11/12 MH 31.0 [place] HEMATOLOGY MCHC 30.1 g/dL 32.0 - 11/12 MH 36.0 [place] HEMATOLOGY Hct 29.0 % 36.0 - 11/12 MH 48.0 [place] HEMATOLOGY Hgb 8.7 g/dL 12.0 - 11/12 MH 16.0 [place] HEMATOLOGY RBC 4.13 M/CMM 4.20 - 08 MH 5.40 /2017 [place] HEMATOLOGY MCV 70.2 fL 80.0 - 11/12 MH 98.0 [place] HEMATOLOGY WBC 8.5 K/CMM 3.7 - 10.4 11/12 [place] CHEM PANEL Lactic Acid 1.1 mMol/L 0.5 - 2.2 11/11 MH Lvl /2018 [place] CHEM PANEL Lipase Lvl 80 unit/L 73 - 393 11/11 [place] CHEM PANEL eGFR 115 11/11 Result Comment: The eGFR is calculated using the CKD-EPI formula. In most young, healthy individuals the eGFR will be >90 mL/ min/1.73m2. The eGFR declines with age. An eGFR of 60-89 may be normal in mL/min/1.73 /2017 some populations, particularly the elderly, for whom the CKD-EPI formula has not been extensively validated. Use of the eGFR is not recommended in the following populations: [place] m2 [place] Individuals with unstable creatinine concentrations, including patients and those with serious co-morbid conditions. Patients with extremes in muscle mass or diet. The data above are obtained from the National Kidney Disease Education Program (NKDEP) which additionally recommends that when the eGFR is used in patients with extremes of body mass index for purposes of drug dosing, the eGFR should be multiplied by the estimated BMI. CHEM PANEL Alk Phos 81 unit/L 39 - 136 11/11 [place] CHEM PANEL Bili Total 0.3 mg/dL 0.2 - 1.3 11/11 [place] CHEM PANEL AST 14 unit/L 0 - 37 11/11 [place] CHEM PANEL ALT 33 unit/L 0 - 65 11/11 [place] CHEM PANEL Chloride Lvl 104 meq/L 95 - 109 11/11 [place] CHEM PANEL CO2 28 meq/L 24 - 32 11/11 [place] CHEM PANEL Sodium Lvl 138 meq/L 135 - 145 11/11 [place] CHEM PANEL Creatinine 0.61 mg/dL 0.50 - 11/11 Lvl 1.40 /2017 [place] CHEM PANEL BUN 8 mg/dL 7 - 22 11/11 [place] CHEM PANEL Potassium Lvl 3.6 meq/L 3.5 - 5.1 11/11 [place] CHEM PANEL Glucose Lvl 85 mg/dL 70 - 99 11/11 [place] CHEM PANEL Albumin Lvl 3.9 g/dL 3.5 - 5.0 11/11 [place] CHEM PANEL Total Protein 7.7 g/dL 6.4 - 8.4 11/11 [place] CHEM PANEL Calcium Lvl 8.8 mg/dL 8.5 - 10.5 11/11 [place] CHEM PANEL A/G Ratio 1.0 0.7 - 1.6 11/11 [place] CHEM PANEL B/C Ratio 13 6 - 25 08/ [place] CHEM PANEL Globulin 3.8 g/dL 2.7 - 4.2 08/ [place] CHEM PANEL AGAP 9.6 meq/L 10.0 - 08 MH 20.0 [place] ENDOCRINOLO S Preg Negative Negative 11/11 [place] *NA* [place] (11/11/17 10:34 AM) HEMATOLOGY PTT 30.7 s 22.9 - 08 MH 35.8 /2017 [place] HEMATOLOGY INR 1.00 0.85 - 08 MH 1.17 [place] HEMATOLOGY PT 13.2 s 12.0 - 11/11 MH 14.7 [place] HEMATOLOGY Platelet 479 K/CMM 133 - 450 08 [place] HEMATOLOGY MCH 21.4 pg 27.0 - 08 MH 31.0 /2017 [place] HEMATOLOGY MCHC 30.3 g/dL 32.0 - 08 36.0 [place] HEMATOLOGY RDW 17.4 % 11.5 - 08 MH 14.5 /2017 [place] HEMATOLOGY MPV 7.7 fL 7.4 - 10.4 11/11 [place] HEMATOLOGY Hct 33.8 % 36.0 - 08 MH 48.0 /2017 [place] HEMATOLOGY Hgb 10.3 g/dL 12.0 - 08 16.0 /2017 [place] HEMATOLOGY MCV 70.7 fL 80.0 - 08 MH 98.0 /2017 [place] HEMATOLOGY WBC 16.1 K/CMM 3.7 - 10.4 11/11 [place] HEMATOLOGY RBC 4.79 M/CMM 4.20 - 08 MH 5.40 /2017 [place] HEMATOLOGY Lymphocytes # 1.5 K/CMM 1.0 - 5.5 11/11 [place] HEMATOLOGY Neutrophils # 13.5 K/CMM 1.5 - 8.1 11/11 [place] HEMATOLOGY Monocytes # 1.0 K/CMM 0.0 - 0.8 11/11 [place] HEMATOLOGY Basophils 0.0 % 0.0 - 1.0 11/11 [place] HEMATOLOGY Eosinophils 1.0 % 0.0 - 4.0 11/11 [place] HEMATOLOGY Segs 83.7 % 45.0 - 11/11 MH 75.0 /2017 [place] HEMATOLOGY Monocytes 6.0 % 2.0 - 12.0 11/11 [place] HEMATOLOGY Lymphocytes 9.3 % 20.0 - 11/11 MH 40.0 [place] HEMATOLOGY Anisocyte 1+ None Seen 11/11 [place] *ABN* [place] (11/11/17 10:34 AM) HEMATOLOGY Eosinophils # 0.2 K/CMM 0.0 - 0.5 11/11 [place] HEMATOLOGY Basophils # 0.0 K/CMM 0.0 - 0.2 11/11 [place] HEMATOLOGY Microcyte 1+ None Seen 11/11 [place] *ABN* [facility] (11/11/17 10:34 AM) HEMATOLOGY Hypochrom 1+ None Seen 11/11 [place] (11/11/17 10:34 AM) [place] URINE AND UA <=1.0 mg/dL 0.1 - 1.0 11/11 STO[facility] Urobilinogen /2017 [place] URINE AND UA Trans Epi 6 /LPF <=0 /LPF 11/11 STOOL [place] URINE AND UA Mucus Few /LPF None Seen 11/11 STOOL /LPF /2017 [place] URINE AND UA Nitrite Negative Negative 11/11 STOOL [place] (11/11/17 10:34 AM) [place] URINE AND UA pH 6.0 5.0 - 8.0 11/11 STOOL [place] URINE AND UA Spec Grav 1.014 <=1.030 11/11 STOOL [place] URINE AND UA Ketones Negative Negative 11/11 [facility] mg/dL mg/dL [place] URINE AND UA Glucose Negative Negative 11/11 [place] mg/dL mg/dL [place] URINE AND UA Protein Negative Negative 11/11 [place] mg/dL mg/dL [place] URINE AND UA Bili Negative Negative 11/11 STOOL [place] *NA* [place] (11/11/17 10:34 AM) URINE AND UA RBC 25 /HPF 0 - 2 11/11 STOOL [place] URINE AND UA Blood Large Negative 11/11 [place] *ABN* [place] (11/11/17 10:34 AM) URINE AND UA Sq Epi Moderate Few /LPF 11/11 STO[facility] /LPF /2017 [place] URINE AND UA Leuk Est Negative Negative 11/11 STOOL [place] (11/11/17 10:34 AM) [place] URINE AND UA WBC 1 /HPF 0 - 5 11/11 STOOL [place] URINE AND UA Color Yellow Yellow 11/11 STOOL [place] *NA* [place] (11/11/17 10:34 AM) URINE AND UA Turbidity Clear Clear 11/11 [place] (11/11/17 10:34 AM) [place] CARDIAC Troponin-I null 0.00 - 11/11 ENZYMES 0.40 /2017 [place] Upper GI Upper GI EXAM: 11/11 - Series w Series w - [place] water water soluble Upper GI series. [place] soluble DX DX Read by: Abundio Pop MD Dictated Date/time: 11/11/17 17:55 CLINICAL HX: Electronically Signed by: Abundio Pop MD 11/11/17 17:59 FINAL REPORT Postoperative changes of recent Florencia fundoplication. Epigastric and chest pain. Age: 37 years. Gender: Female. TECHNIQUE: Multiple x-ray and/or fluoroscopic images of the upper GI tract after oral administration of Gastrografin. Fluoroscopic time: 0.45 minute(s). Number of images: 30. COMPARISON: CT abdomen and pelvis: Earlier today. FINDINGS: Postoperative changes: Florencia fundoplication. Leak: Negative. Obstruction: Negative at the surgical site, but mildly prominent small bowel loops, as below. Gastroesophageal (GE) junction: Unremarkable. Proximal small bowel: Contrast passes through the duodenum and proximal jejunum. On the upright stapler machine x-ray, however, there are a few prominent upper abdominal small bowel loops with air-fluid levels. Other: None. IMPRESSION: 1. Postoperative changes of Florencia fundoplication. No evidence of leak. 2. Mildly prominent small bowel loops with air-fluid levels, on the stapler machine x -ray, which could represent a mid or distal, low-grade obstructive process. Serial abdominal x-rays to monitor the passage of contrast through small bowel could be considered. Chest Chest EXAM: 11/11 - Pulmonary Pulmonary - [place] Embolism Embolism CTA CT chest angiogram with contrast. [place] CTA CT abdomen and pelvis with contrast. Read by: Abundio Pop MD Dictated Date/time: 11/11/17 11:37 Electronically Signed by: Abundio Pop MD 11/11/17 11:58 FINAL REPORT CLINICAL HX: - epigastric and chest pain, recent cholecystectomy and hiatal hernia repair a few days ago. Age: 37 years. Gender: Female. TECHNIQUE: Contiguous axial CTA images of the chest, abdomen and pelvis. IV contrast: 100 mL Omnipaque 350. GI contrast: Absent. Protocol: Pulmonary embolus (PE) protocol angiogram. Reformats: MIPs were created/utilized. MPRs were created/utilized. Dose: -- DLP 660 mGy-cm. -- AEC, mA/kV adjustment by patient size, and/or iterative reconstruction technique were used, per departmental dose-optimization program. COMPARISON: CT abdomen: 11/04/2017. FINDINGS: --Chest-- Thoracic aorta: Unremarkable. Heart: -- Left atrial thrombus: Negative. -- Right ventricle/left ventricle ratio: Within normal limits. -- Other: None. Pulmonary arteries: -- Technical: Adequate opacification to the level of the lobar vessels. Some of the segmental and segmental vessels are not well evaluated due to motion and streak artifact. -- Pulmonary embolus: No low-density filling defect to suggest acute PE. Heterogeneity of left lower lobe pulmonary arteries is felt related to motion artifact. -- Overall embolic burden: None. -- Other: None. Mediastinum: No pathologic sized middle mediastinal lymphadenopathy. Tracheobronchial tree: Unremarkable. Lungs: -- Consolidation: Negative. -- Pleural effusion: Negative. -- Pneumothorax: Negative. -- Other: 2 millimetric right lung calcified granulomas. Bones: Unremarkable. Other: None. --Abdomen-- Solid abdominal viscera: -- Liver: Unremarkable. -- Biliary: Interval cholecystectomy with clips. Mild fluid in the operative bed. 0.8 cm common bile duct. -- Pancreas: Unremarkable. -- Spleen: Unremarkable. -- Adrenal glands: Unremarkable. Urinary tract: -- Right kidney: Subcentimeter low-density lesions which are too small to definitively characterize but are statistically cysts. No hydronephrosis. -- Left kidney: No hydronephrosis. -- Urinary bladder: Focal high density at the left aspect of the urinary bladder (series 5 image 76) is felt to be the left ureteral jet with contrast. Miscellaneous: -- Abdominal aorta: Unremarkable. -- Peritoneal free fluid: None. -- Peritoneal free air: None. -- Other: No pathologic sized lymph nodes in the upper abdomen. Bowel: -- Stomach: Interval postoperative changes of hiatal hernia surgery. Mild regional stranding. -- Small bowel: Upper normal size right abdominal small bowel loops with air-fluid levels. No transition point. -- Appendix: Unremarkable. -- Colon: Unremarkable. -- Rectum: Unremarkable. Reproductive organ(s): Unremarkable. Bones: Unremarkable. Other: None. IMPRESSION: Chest: 1. No CT evidence of acute PE. Abdomen: 1. Postoperative changes cholecystomy with mild fluid in the operative bed , but no organized fluid collection. This is probably postoperative, but if there is clinical concern for bile leak, consider HIDA scan. 2. Mild stranding in the region of the hiatal hernia surgery repair which is also likely postoperative. 3. Mildly dilated common bile duct which probably represents postcholecystectomy ectasia. 4. Upper normal size right abdominal small bowel loops with air-fluid levels. This is favored to represent peristalsis, given that there is no transition point. However, ileus or low-grade obstruction is not entirely excluded. ED ED EXAM: 11/11 - Abdomen/Pel Abdomen/Pelvi /2018 - [place] vis IV s IV contrast CT chest angiogram with contrast. [place] contrast only CT only CT CT abdomen and pelvis with contrast. Read by: Abundio Pop MD Dictated Date/time: 11/11/17 11:37 Electronically Signed by: Abundio Pop MD 11/11/17 11:58 FINAL REPORT CLINICAL HX: - epigastric and chest pain, recent cholecystectomy and hiatal hernia repair a few days ago. Age: 37 years. Gender: Female. TECHNIQUE: Contiguous axial CTA images of the chest, abdomen and pelvis. IV contrast: 100 mL Omnipaque 350. GI contrast: Absent. Protocol: Pulmonary embolus (PE) protocol angiogram. Reformats: MIPs were created/utilized. MPRs were created/utilized. Dose: -- DLP 660 mGy-cm. -- AEC, mA/kV adjustment by patient size, and/or iterative reconstruction technique were used, per departmental dose-optimization program. COMPARISON: CT abdomen: 11/04/2017. FINDINGS: --Chest-- Thoracic aorta: Unremarkable. Heart: -- Left atrial thrombus: Negative. -- Right ventricle/left ventricle ratio: Within normal limits. -- Other: None. Pulmonary arteries: -- Technical: Adequate opacification to the level of the lobar vessels. Some of the segmental and segmental vessels are not well evaluated due to motion and streak artifact. -- Pulmonary embolus: No low-density filling defect to suggest acute PE. Heterogeneity of left lower lobe pulmonary arteries is felt related to motion artifact. -- Overall embolic burden: None. -- Other: None. Mediastinum: No pathologic sized middle mediastinal lymphadenopathy. Tracheobronchial tree: Unremarkable. Lungs: -- Consolidation: Negative. -- Pleural effusion: Negative. -- Pneumothorax: Negative. -- Other: 2 millimetric right lung calcified granulomas. Bones: Unremarkable. Other: None. --Abdomen-- Solid abdominal viscera: -- Liver: Unremarkable. -- Biliary: Interval cholecystectomy with clips. Mild fluid in the operative bed. 0.8 cm common bile duct. -- Pancreas: Unremarkable. -- Spleen: Unremarkable. -- Adrenal glands: Unremarkable. Urinary tract: -- Right kidney: Subcentimeter low-density lesions which are too small to definitively characterize but are statistically cysts. No hydronephrosis. -- Left kidney: No hydronephrosis. -- Urinary bladder: Focal high density at the left aspect of the urinary bladder (series 5 image 76) is felt to be the left ureteral jet with contrast. Miscellaneous: -- Abdominal aorta: Unremarkable. -- Peritoneal free fluid: None. -- Peritoneal free air: None. -- Other: No pathologic sized lymph nodes in the upper abdomen. Bowel: -- Stomach: Interval postoperative changes of hiatal hernia surgery. Mild regional stranding. -- Small bowel: Upper normal size right abdominal small bowel loops with air-fluid levels. No transition point. -- Appendix: Unremarkable. -- Colon: Unremarkable. -- Rectum: Unremarkable. Reproductive organ(s): Unremarkable. Bones: Unremarkable. Other: None. IMPRESSION: Chest: 1. No CT evidence of acute PE. Abdomen: 1. Postoperative changes cholecystomy with mild fluid in the operative bed , but no organized fluid collection. This is probably postoperative, but if there is clinical concern for bile leak, consider HIDA scan. 2. Mild stranding in the region of the hiatal hernia surgery repair which is also likely postoperative. 3. Mildly dilated common bile duct which probably represents postcholecystectomy ectasia. 4. Upper normal size right abdominal small bowel loops with air-fluid levels. This is favored to represent peristalsis, given that there is no transition point. However, ileus or low-grade obstruction is not entirely excluded. CHEM PANEL eGFR 122 11/08 Result Comment: The eGFR is calculated using the CKD-EPI formula. In most young, healthy individuals the eGFR will be >90 mL/ min/1.73m2. The eGFR declines with age. An eGFR of 60-89 may be normal in mL/min/1.73 /2017 some populations, particularly the elderly, for whom the CKD-EPI formula has not been extensively validated. Use of the eGFR is not recommended in the following populations: [place] Individuals with unstable creatinine concentrations, including patients and those with serious co-morbid conditions. Patients with extremes in muscle mass or diet. The data above are obtained from the National Kidney Disease Education Program (NKDEP) which additionally recommends that when the eGFR is used in patients with extremes of body mass index for purposes of drug dosing, the eGFR should be multiplied by the estimated BMI. CHEM PANEL Calcium Lvl 8.2 mg/dL 8.5 - 10.5 11/08 [place] CHEM PANEL CO2 25 meq/L 24 - 32 11/08 [place] CHEM PANEL Chloride Lvl 108 meq/L 95 - 109 11/08 [place] CHEM PANEL Potassium Lvl 3.6 meq/L 3.5 - 5.1 11/08 [place] CHEM PANEL Sodium Lvl 141 meq/L 135 - 145 11/08 [place] CHEM PANEL Creatinine 0.52 mg/dL 0.50 - 11/08 [place] Lvl 1.40 [place] CHEM PANEL BUN 6 mg/dL 7 - 22 11/08 [place] CHEM PANEL Glucose Lvl 84 mg/dL 70 - 99 11/08 [place] CHEM PANEL AGAP 11.6 meq/L 10.0 - 11/08 20.0 [place] HEMATOLOGY MPV 7.7 fL 7.4 - 10.4 11/08 [place] HEMATOLOGY Hgb 8.7 g/dL 12.0 - 11/08 MH 16.0 /2017 [place] HEMATOLOGY MCV 68.8 fL 80.0 - 08 MH 98.0 /2017 [place] HEMATOLOGY RBC 4.17 M/CMM 4.20 - 08 MH 5.40 /2017 [place] HEMATOLOGY WBC 14.6 K/CMM 3.7 - 10.4 11/08 [place] HEMATOLOGY MCH 20.9 pg 27.0 - 08 MH 31.0 [place] HEMATOLOGY Platelet 381 K/CMM 133 - 450 11/08 [place] HEMATOLOGY RDW 17.6 % 11.5 - 08 MH 14.5 /2017 [place] HEMATOLOGY MCHC 30.4 g/dL 32.0 - 08/ MH 36.0 /2017 [place] HEMATOLOGY Hct 28.7 % 36.0 - 11/08 48.0 [place] HEMATOLOGY Neutrophils # 10.7 K/CMM 1.5 - 8.1 11/08 [place] HEMATOLOGY Basophils 0.1 % 0.0 - 1.0 11/08 [place] HEMATOLOGY Basophils # 0.0 K/CMM 0.0 - 0.2 11/08 [place] HEMATOLOGY Monocytes # 1.4 K/CMM 0.0 - 0.8 11/08 [place] HEMATOLOGY Eosinophils # 0.0 K/CMM 0.0 - 0.5 11/08 [place] HEMATOLOGY Lymphocytes # 2.5 K/CMM 1.0 - 5.5 11/08 [place] HEMATOLOGY Monocytes 9.3 % 2.0 - 12.0 11/08 [place] HEMATOLOGY Eosinophils 0.3 % 0.0 - 4.0 11/08 [place] HEMATOLOGY Lymphocytes 17.2 % 20.0 - 08 40.0 [place] HEMATOLOGY Segs 73.1 % 45.0 - 08 75.0 [place] URINE CHEM U Preg Negative Negative 11/07 [place] (11/07/17 6:13 AM) [place] CHEM PANEL Lipase Lvl 144 unit/L 73 - 393 11/04 [place] CHEM PANEL eGFR 98 11/04 Result Comment: The eGFR is calculated using the CKD-EPI formula. In most young, healthy individuals the eGFR will be >90 mL/ min/1.73m2. The eGFR declines with age. An eGFR of 60-89 may be normal in mL/min/1.73 /2017 some populations, particularly the elderly, for whom the CKD-EPI formula has not been extensively validated. Use of the eGFR is not recommended in the following populations: [place] m2 [place] Individuals with unstable creatinine concentrations, including patients and those with serious co-morbid conditions. Patients with extremes in muscle mass or diet. The data above are obtained from the National Kidney Disease Education Program (NKDEP) which additionally recommends that when the eGFR is used in patients with extremes of body mass index for purposes of drug dosing, the eGFR should be multiplied by the estimated BMI. CHEM PANEL Potassium Lvl 3.4 meq/L 3.5 - 5.1 11/04 [place] CHEM PANEL Chloride Lvl 105 meq/L 95 - 109 11/04 [place] CHEM PANEL CO2 26 meq/L 24 - 32 11/04 [place] CHEM PANEL Albumin Lvl 3.6 g/dL 3.5 - 5.0 11/04 [place] CHEM PANEL AST 11 unit/L 0 - 37 11/04 [place] CHEM PANEL ALT 20 unit/L 0 - 65 11/04 [place] CHEM PANEL Alk Phos 83 unit/L 39 - 136 11/04 [place] CHEM PANEL Bili Total 0.2 mg/dL 0.2 - 1.3 11/04 [place] CHEM PANEL Calcium Lvl 8.5 mg/dL 8.5 - 10.5 11/04 [place] CHEM PANEL Total Protein 7.2 g/dL 6.4 - 8.4 11/04 [place] CHEM PANEL Glucose Lvl 77 mg/dL 70 - 99 11/04 [place] CHEM PANEL BUN 8 mg/dL 7 - 22 11/04 [place] CHEM PANEL Creatinine 0.77 mg/dL 0.50 - 11/04 MH Lvl 1.40 [place] CHEM PANEL Sodium Lvl 138 meq/L 135 - 145 11/04 [place] CHEM PANEL A/G Ratio 1.0 0.7 - 1.6 11/04 [place] CHEM PANEL Globulin 3.6 g/dL 2.7 - 4.2 11/04 [place] CHEM PANEL B/C Ratio 10 6 - 25 11/04 [place] CHEM PANEL AGAP 10.4 meq/L 10.0 - 11/04 MH 20.0 [place] ENDOCRINOLO hCG Tot null 11/04 MH GY [place] HEMATOLOGY WBC 10.2 K/CMM 3.7 - 10.4 11/04 [place] HEMATOLOGY RBC 4.72 M/CMM 4.20 - 11/04 MH 5.40 /2017 [place] HEMATOLOGY MPV 7.8 fL 7.4 - 10.4 11/04 [place] HEMATOLOGY Platelet 463 K/CMM 133 - 450 11/04 [place] HEMATOLOGY MCH 20.8 pg 27.0 - 11/04 MH 31.0 [place] HEMATOLOGY RDW 17.6 % 11.5 - 11/04 MH 14.5 [place] HEMATOLOGY Hct 33.0 % 36.0 - 11/04 MH 48.0 [place] HEMATOLOGY MCHC 29.8 g/dL 32.0 - 11/04 MH 36.0 [place] HEMATOLOGY Hgb 9.8 g/dL 12.0 - 11/04 MH 16.0 [place] HEMATOLOGY MCV 70.0 fL 80.0 - 11/04 MH 98.0 [place] HEMATOLOGY Segs 63.4 % 45.0 - 11/04 MH 75.0 [place] HEMATOLOGY Lymphocytes 26.3 % 20.0 - 11/04 MH 40.0 [place] HEMATOLOGY Monocytes 8.7 % 2.0 - 12.0 11/04 [place] HEMATOLOGY Eosinophils 1.5 % 0.0 - 4.0 11/04 [place] HEMATOLOGY Monocytes # 0.9 K/CMM 0.0 - 0.8 11/04 [place] HEMATOLOGY Basophils 0.1 % 0.0 - 1.0 11/04 [place] HEMATOLOGY Neutrophils # 6.5 K/CMM 1.5 - 8.1 11/04 [place] HEMATOLOGY Lymphocytes # 2.7 K/CMM 1.0 - 5.5 11/04 [place] HEMATOLOGY Eosinophils # 0.2 K/CMM 0.0 - 0.5 11/04 [place] HEMATOLOGY Basophils # 0.0 K/CMM 0.0 - 0.2 11/04 [place] URINE AND UA <=1.0 mg/dL 0.1 - 1.0 11/04 STOOL Urobilinogen /2017 [place] URINE AND UA Blood Small Negative 11/04 STOOL [place] *ABN* [place] (11/04/17 2:56 PM) URINE AND UA Bili Negative Negative 11/04 [place] *NA* [place] (11/04/17 2:56 PM) URINE AND UA WBC null 0 - 5 11/04 STOOL [place] URINE AND UA Sq Epi Occasional Few /LPF 11/04 STOOL /LPF /2017 [place] URINE AND UA Nitrite Negative Negative 11/04 STOOL [place] (11/04/17 2:56 PM) [place] URINE AND UA Ketones Negative Negative 11/04 [facility] mg/dL mg/dL [place] URINE AND UA Glucose Negative Negative 11/04 [facility] mg/dL mg/dL [place] URINE AND UA Protein Negative Negative 11/04 [facility] mg/dL mg/dL [place] URINE AND UA Bacteria Few /HPF None Seen 11/04 STOOL /HPF [place] URINE AND UA RBC 2 /HPF 0 - 2 11/04 [place] URINE AND UA Leuk Est Large Negative 11/04 STOOL [place] *ABN* [place] (11/04/17 2:56 PM) URINE AND UA Mucus Few /LPF None Seen 11/04 STOOL /LPF [place] URINE AND UA pH 5.0 5.0 - 8.0 11/04 [place] URINE AND UA Spec Grav 1.020 <=1.030 11/04 STOOL [place] URINE AND UA Color Light Yellow Yellow 11/04 STOOL [place] *NA* [place] (11/04/17 2:56 PM) URINE AND UA Turbidity Slight Clear 11/04 STOOL [place] *ABN* [place] (11/04/17 2:56 PM) Culture: No Growth 11/04 Urine [place] Renal Stone Renal Stone 11/04 - CT CT - [place] Sex: Female. Read by: Marlon Cano MD Dictated Date/time: 11/04/17 16:24 : 1980. Electronically Signed by: Marlon Cano MD 11/04/17 16:32 FINAL REPORT Technique: Axial scans through the abdomen and pelvis including multiplanar computer reformations. Total Dose Length Product: 1226. This exam was performed according to our departmental dose optimizatio n program which includes automated exposure control, adjustment of the mA and/or kV according to patient size and/or use of iterative reconstruction technique. Comparison studies: September 29, 2014. Clinical history: - 37 y/o with rt flank pain. Findings: Liver: Size: 16.3 cm. Parenchyma: No mass. Vasculature: Portal and hepatic veins: Indeterminate-noncontrast. Spleen: Normal. Gallbladder: Contracted. Bile ducts: No biliary dilatation. Pancreas: normal. Adrenal glands: Normal. Kidneys: Right kidney is 11.1 cm. Left kidney is 11.7 cm. There is mild renal pelviectasis. There is no evidence for bilateral ureteral obstruction. Bladder: Underdistended. Uterus: Position: Anteverted. Uterine length: 9.6 cm. The endometrium is prominent and measures 26 mm. Adnexa: No adnexal mass. Intestinal tract: Stomach and duodenum: Ingested contents. Small bowel: Normal. Large bowel: Mild colonic stool burden. Appendix: Normal. Mesentery and Omentum: Normal. Vasculature: Aorta: Normal. Iliac arteries: Normal. Retroperitoneum: No mass or adenopathy. Free fluid: None. Musculoskeletal: Musculature, abdominal wall and soft tissues: 9 mm fat-containing umbilical hernia Skeletal structures: Unremarkable. Lung bases: Clear. Impression: 1. Mild renal pelviectasis without evidence for ureteral obstruction. 2. No other acute CT findings. 3. Tiny umbilical hernia. HEMATOLOGY MCHC 30.6 g/dL 32.0 - 11/01 MH 36.0 /2017 [place] HEMATOLOGY RDW 17.5 % 11.5 - 11/01 MH 14.5 /2017 [place] HEMATOLOGY RBC 4.74 M/CMM 4.20 - 11/01 MH 5.40 /2018 [place] HEMATOLOGY Hct 32.8 % 36.0 - 11/01 MH 48.0 /2017 [place] HEMATOLOGY MCV 69.1 fL 80.0 - 11/01 MH 98.0 /2017 [place] HEMATOLOGY MCH 21.2 pg 27.0 - 11/01 MH 31.0 /2017 [place] HEMATOLOGY Platelet 461 K/CMM 133 - 450 11/01 /2017 [place] HEMATOLOGY MPV 7.7 fL 7.4 - 10.4 11/01 [place] HEMATOLOGY Hgb 10.0 g/dL 12.0 - 11/01 16.0 [place] HEMATOLOGY WBC 9.6 K/CMM 3.7 - 10.4 11/01 [place] HEMATOLOGY Basophils # 0.1 K/CMM 0.0 - 0.2 11/01 [place] HEMATOLOGY Neutrophils # 5.9 K/CMM 1.5 - 8.1 11/01 [place] HEMATOLOGY Eosinophils # 0.1 K/CMM 0.0 - 0.5 11/01 [place] HEMATOLOGY Lymphocytes # 2.8 K/CMM 1.0 - 5.5 11/01 [place] HEMATOLOGY Monocytes # 0.7 K/CMM 0.0 - 0.8 11/01 [place] HEMATOLOGY Microcyte 1+ None Seen 11/01 [place] *ABN* [facility] (11/01/17 12:12 PM) HEMATOLOGY Plt Morph Normal 11/01 [facility] (11/01/17 12:12 PM) [place] HEMATOLOGY Polychrom 1+ 11/01 [place] HEMATOLOGY Hypochrom 1+ None Seen 11/01 [place] (11/01/17 12:12 PM) [facility] HEMATOLOGY Monocytes 7.4 % 2.0 - 12.0 11/01 [place] HEMATOLOGY Lymphocytes 29.7 % 20.0 - 11/01 40.0 [place] HEMATOLOGY Segs 61.2 % 45.0 - 11/01 75.0 [place] HEMATOLOGY Eosinophils 1.2 % 0.0 - 4.0 11/01 [place] HEMATOLOGY Basophils 0.5 % 0.0 - 1.0 11/01 [place] HEMATOLOGY Stomatocyte Slight 11/01 [place] Upper GI Upper GI Upper GI Series: 09/27/2017 10:13 AM CDT 09/27 - OPID series w series w - [place] KUB DX DX CLINICAL INDICATION: [place] 37 years Female K44.9 Diaphragmatic hernia without obstruction or gangrene, K21.9 Gastro-esophageal reflux disease without esophagitis - K44.9 Diaphragmatic hernia without obstruction or gangr Read by: Edu Borja MD gualberto, K21.9 Gastro-esophageal reflux disease without esophagitis / . Dictated Date/time: 09/27/17 11:42 Electronically Signed by: Edu Borja MD 09/27/17 11:47 Fluoroscopy Time: 1.1 minutes (dose 29.741 mGy) FINAL REPORT FINDINGS: The stapler machine view of the chest and upper abdomen shows clear lungs and a normal bowel gas pattern. The patient was given thin liquid contrast material from the mouth. Swallowing is normal without aspiration. The esophagus is normal in caliber and shows normal motility. There is a sliding hiatal her margot best seen in prone and supine position involving only a small portion fundus. Associated moderate gastroesophageal flux to the level the thoracic inlet. The stomach is otherwise normal in size and c ontour. Contrast empties promptly into the duodenum. The ligament of Treitz lies in normal position. 1 cm barium canal was lodged at the gastroesophageal junction for greater than 10 minutes despite one cup of water. Impression: 1. Sliding, small hiatal hernia with moderate gastroesophageal reflux. 2. 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 ELECTROLYTE AGAP 11.7 meq/L 10.0 - 04/21 MH S 20.0 [place] ELECTROLYTE eGFR 117 04/21 Result Comment: The eGFR is calculated using the CKD-EPI formula. In most young, healthy individuals the eGFR will be > 90 mL/min/1.73m2. The eGFR declines with age. An eGFR of 60-89 may be normal in S mL/min/1.73 /2018 some populations, particularly the elderly, for whom the CKD-EPI formula has not been extensively validated. Use of the eGFR is not recommended in the following populations: [place] m2 [place] Individuals with unstable creatinine concentrations, including patients and those with serious co-morbid conditions. Patients with extremes in muscle mass or diet. The data above are obtained from the National Kidney Disease Education Program (NKDEP) which additionally recommends that when the eGFR is used in patients with extremes of body mass index for purposes of drug dosing, the eGFR should be multiplied by the estimated BMI. ELECTROLYTE Calcium Lvl 8.7 mg/dL 8.5 - 10.5 04/21 MH S /2017 [place] ELECTROLYTE CO2 25 meq/L 24 - 32 04/21 MH S /2018 [place] ELECTROLYTE Chloride Lvl 106 meq/L 95 - 109 04/21 MH [place] ELECTROLYTE Potassium Lvl 3.7 meq/L 3.5 - 5.1 04/21 S [place] ELECTROLYTE Creatinine 0.59 mg/dL 0.50 - 04/21 MH S Lvl 1.40 [place] ELECTROLYTE Sodium Lvl 139 meq/L 135 - 145 04/21 [place] ELECTROLYTE BUN 8 mg/dL 7 - 22 04/21 S [place] ELECTROLYTE Glucose Lvl 99 mg/dL 70 - 99 04/21 [place] HEMATOLOGY MPV 7.4 fL 7.4 - 10.4 04/21 [place] HEMATOLOGY Platelet 407 K/CMM 133 - 450 04/21 [place] HEMATOLOGY RDW 19.3 % 11.5 - 04/21 14.5 [place] HEMATOLOGY MCHC 31.1 g/dL 32.0 - 04/21 36.0 [place] HEMATOLOGY MCH 22.1 pg 27.0 - 04/21 31.0 [place] HEMATOLOGY WBC 9.2 K/CMM 3.7 - 10.4 04/21 [place] HEMATOLOGY MCV 71.2 fL 80.0 - 04/21 98.0 [place] HEMATOLOGY RBC 4.89 M/CMM 4.20 - 04/21 5.40 [place] HEMATOLOGY Hct 34.9 % 36.0 - 04/21 MH 48.0 [place] HEMATOLOGY Hgb 10.8 g/dL 12.0 - 04/21 16.0 [place] HEMATOLOGY Monocytes # 0.7 K/CMM 0.0 - 0.8 04/21 [place] HEMATOLOGY Eosinophils # 0.1 K/CMM 0.0 - 0.5 04/21 [place] HEMATOLOGY Basophils # 0.0 K/CMM 0.0 - 0.2 04/21 [place] HEMATOLOGY Anisocyte 1+ None Seen 04/21 [place] *ABN* [place] (04/21/17 8:43 AM) HEMATOLOGY Lymphocytes # 2.4 K/CMM 1.0 - 5.5 04/21 [place] HEMATOLOGY Segs 65.3 % 45.0 - 04/21 MH 75.0 [place] HEMATOLOGY Eosinophils 1.5 % 0.0 - 4.0 04/21 [place] HEMATOLOGY Basophils 0.0 % 0.0 - 1.0 04/21 [place] HEMATOLOGY Lymphocytes 25.6 % 20.0 - 04/21 40.0 [place] HEMATOLOGY Segs-Bands # 6.0 K/CMM 1.5 - 8.1 04/21 [place] HEMATOLOGY Monocytes 7.6 % 2.0 - 12.0 04/21 [place] URINE AND UA <=1.0 mg/dL 0.1 - 1.0 04/21 STOOL Urobilinogen [place] URINE AND UA Mucus Few /LPF None Seen 04/21 STOOL /LPF [place] URINE AND UA Bili Negative Negative 04/21 STOOL [place] *NA* [place] (04/21/17 8:43 AM) URINE AND UA Blood Small Negative 04/21 STOOL [place] *ABN* [place] (04/21/17 8:43 AM) URINE AND UA pH 6.0 5.0 - 8.0 04/21 STOOL [place] URINE AND UA WBC 4 /HPF 0 - 5 04/21 STOOL [place] URINE AND UA Sq Epi Few /LPF Few /LPF 04/21 STOOL [place] URINE AND UA Bacteria Occasional None Seen 04/21 STOOL /HPF /HPF [place] URINE AND UA Leuk Est Negative Negative 04/21 STOOL [place] (04/21/17 8:43 AM) [place] URINE AND UA Nitrite Negative Negative 04/21 STOOL [place] (04/21/17 8:43 AM) [place] URINE AND UA RBC null 0 - 2 04/21 STOOL [place] URINE AND UA Protein Negative Negative 04/21 [facility]OOL mg/dL mg/dL [place] URINE AND UA Ketones Negative Negative 04/21 [facility]OOL mg/dL mg/dL [place] URINE AND UA Glucose Negative Negative 04/21 STOOL mg/dL mg/dL [place] URINE AND UA Spec Grav 1.005 <=1.030 04/21 STOOL [place] URINE AND UA Turbidity Clear Clear 04/21 STOOL [place] (04/21/17 8:43 AM) [place] URINE AND UA Color Light Yellow Yellow 04/21 STOOL [place] *NA* [place] (04/21/17 8:43 AM) CHEM PANEL Lipase Lvl 127 unit/L 73 - 393 05/23 [place] CHEM PANEL eGFR 124 05/23 Result Comment: The eGFR is calculated using the CKD-EPI formula. In most young, healthy individuals the eGFR will be >90 mL/ min/1.73m2. The eGFR declines with age. An eGFR of 60-89 may be normal in [place] mL/min/1.73 /2016 some populations, particularly the elderly, for whom the CKD-EPI formula has not been extensively validated. Use of the eGFR is not recommended in the following populations: [place] m2 [place] Individuals with unstable creatinine concentrations, including patients and those with serious co-morbid conditions. Patients with extremes in muscle mass or diet. The data above are obtained from the National Kidney Disease Education Program (NKDEP) which additionally recommends that when the eGFR is used in patients with extremes of body mass index for purposes of drug dosing, the eGFR should be multiplied by the estimated BMI. CHEM PANEL ASPARTATE 16 unit/L 0 - 37 05/23 [place] CHEM PANEL Alk Phos 73 unit/L 39 - 136 05/23 [place] CHEM PANEL Bili Total 0.3 mg/dL 0.2 - 1.3 05/23 [place] CHEM PANEL Sodium Lvl 138 meq/L 135 - 145 05/23 [place] CHEM PANEL Creatinine 0.52 mg/dL 0.50 - 05/23 MH Lvl 1.40 [place] CHEM PANEL BUN 11 mg/dL 7 - 22 05/23 [place] CHEM PANEL Glucose Lvl 94 mg/dL 70 - 99 05/23 [place] CHEM PANEL Potassium Lvl 3.2 meq/L 3.5 - 5.1 05/23 [place] CHEM PANEL Chloride Lvl 105 meq/L 95 - 109 05/23 [place] CHEM PANEL CO2 27 meq/L 24 - 32 05/23 [place] CHEM PANEL B/C Ratio 21 6 - 25 05/23 [place] CHEM PANEL AGAP 9.2 meq/L 10.0 - 05/23 MH 20.0 [place] CHEM PANEL Calcium Lvl 8.0 mg/dL 8.5 - 10.5 05/23 [place] CHEM PANEL Globulin 3.4 g/dL 2.0 - 4.0 05/23 [place] CHEM PANEL Albumin Lvl 3.6 g/dL 3.5 - 5.0 05/23 [place] CHEM PANEL Total Protein 7.0 g/dL 6.4 - 8.4 05/23 [place] CHEM PANEL ALANINE 20 unit/L 0 - 65 05/23 [place] ASE [place] CHEM PANEL A/G Ratio 1.1 0.7 - 1.6 05/23 [place] HEMATOLOGY Anisocyte 1+ None Seen 05/23 [place] *ABN* [place] (05/23/15 2:36 PM) HEMATOLOGY Stomatocyte Slight 05/23 [place] HEMATOLOGY Eosinophils # 0.1 K/CMM 0.0 - 0.5 05/23 [place] HEMATOLOGY Basophils # 0.0 K/CMM 0.0 - 0.2 05/23 [place] HEMATOLOGY Hypochrom 1+ None Seen 05/23 [place] (05/23/15 2:36 PM) [place] HEMATOLOGY Microcyte 1+ None Seen 05/23 [place] *ABN* [place] (05/23/15 2:36 PM) HEMATOLOGY Lymphocytes # 2.6 K/CMM 1.0 - 5.5 05/23 [place] HEMATOLOGY Monocytes # 0.7 K/CMM 0.0 - 0.8 05/23 [place] HEMATOLOGY Eosinophils 1.5 % 0.0 - 4.0 05/23 [place] HEMATOLOGY Segs 58.4 % 45.0 - 05/23 MH 75.0 [place] HEMATOLOGY Monocytes 8.5 % 2.0 - 12.0 05/23 [place] HEMATOLOGY Segs-Bands # 4.8 K/CMM 1.5 - 8.1 05/23 [place] HEMATOLOGY Basophils 0.3 % 0.0 - 1.0 05/23 [place] HEMATOLOGY Lymphocytes 31.3 % 20.0 - 05/23 MH 40.0 [place] HEMATOLOGY MCH 18.8 pg 27.0 - 05/23 MH 31.0 [place] HEMATOLOGY Hct 26.6 % 36.0 - 05/23 MH 48.0 [place] HEMATOLOGY RBC 4.24 M/CMM 4.20 - 05/23 5.40 /2015 [place] HEMATOLOGY MCV 62.8 fL 80.0 - 05/23 98.0 /2015 [place] HEMATOLOGY MPV 7.6 fL 7.4 - 10.4 05/23 [place] HEMATOLOGY Hgb 8.0 g/dL 12.0 - 05/23 16.0 /2015 [place] HEMATOLOGY WBC 8.3 K/CMM 3.7 - 10.4 05/23 [place] HEMATOLOGY Platelet 371 K/CMM 133 - 450 05/23 [place] HEMATOLOGY RDW 18.0 % 11.5 - 05/23 14.5 /2015 [place] HEMATOLOGY MCHC 29.9 g/dL 32.0 - 05/23 36.0 [place] URINE AND UA Mucus Few /LPF None Seen 05/23 STOOL /LPF /2015 [place] URINE AND UA RBC None Seen 0 - 2 05/23 STOOL [place] (05/23/15 2:36 PM) [place] URINE AND UA Bacteria Moderate None Seen 05/23 STOOL /HPF /HPF /2015 [place] URINE AND UA Turbidity Clear Clear 05/23 STOOL [place] (05/23/15 2:36 PM) [place] URINE AND UA Color Yellow Yellow 05/23 STOOL [place] *NA* [place] (05/23/15 2:36 PM) URINE AND UA Bili Negative Negative 05/23 STOOL [place] *NA* [place] (05/23/15 2:36 PM) URINE AND UA Ketones Negative Negative 05/23 STOOL [place] *NA* [place] (05/23/15 2:36 PM) URINE AND UA pH 6.0 5.0 - 8.0 05/23 STOOL [place] URINE AND UA Spec Grav 1.020 <=1.030 05/23 STOOL [place] URINE AND UA Protein Negative Negative 05/23 STOOL [place] (05/23/15 2:36 PM) [place] URINE AND UA Blood Moderate Negative 05/23 STOOL [place] *ABN* [place] (05/23/15 2:36 PM) URINE AND UA 0.2 EU/dL 0.1 - 1.0 05/23 STOOL Urobilinogen /2015 [place] URINE AND UA Glucose Negative Negative 05/23 STOOL [place] (05/23/15 2:36 PM) [place] URINE AND UA WBC 11-20 /HPF None Seen 05/23 STOOL /HPF /2015 [place] URINE AND UA Sq Epi Rare /LPF Few /LPF 05/23 STOOL [place] URINE AND UA Leuk Est Small Negative 05/23 STOOL [place] *ABN* [place] (05/23/15 2:36 PM) URINE AND UA Nitrite Negative Negative 05/23 [place] (05/23/15 2:36 PM) [place] URINE CHEM U Preg Negative Negative 05/23 [place] (05/23/15 2:36 PM) [place] Abdomen RUQ Abdomen RUQ Abdomen RUQ US 05/23 - US - [place] History: Abdominal pain, acute Read by: Julito Murcia MD Dictated Date/time: 05/23/15 15:25 Electronically Signed by: Julito Murcia MD 05/23/15 15:27 FINAL REPORT Right upper quadrant abdominal ultrasound performed with sector scanning technique. Impression: Normal-appearing gallbladder echo with no evidence of stones and no sonographic evidence of acute cholecystitis. Negative sonographic Mendoza sign. No evidence of biliary obstruction or space-occupying disease in the visualized hepatic echo. Common bile duct measured near the livia hepatis is 4 mm. Diameter of the main portal vein is 10 mm with hepatopedal flow. No evidence of ascites. Right renal echo appears unremarkable. Pancreatic echo and abdominal aortic echo appear unremarkable. Conclusion: 1. Normal right upper quadrant abdominal ultrasound. CHEM PANEL eGFR 118 09/29 1Result Comment: The eGFR is calculated using the CKD-EPI formula. In most young, healthy individuals the eGFR will be > 90 mL/min/1.73m2. The eGFR declines with age. An eGFR of 60-89 may be normal in MH mL/min/1.73 /2014 some populations, particularly the elderly, for whom the CKD-EPI formula has not been extensively validated. Use of the eGFR is not recommended in the following populations: [place] m2 [place] Individuals with unstable creatinine concentrations, including patients and those with serious co-morbid conditions. Patients with extremes in muscle mass or diet. The data above are obtained from the National Kidney Disease Education Program (NKDEP) which additionally recommends that when the eGFR is used in patients with extremes of body mass index for purposes of drug dosing, the eGFR should be multiplied by the estimated BMI. CHEM PANEL Bili Total 0.3 mg/dL 0.2 - 1.3 09/29 [place] CHEM PANEL AST 16 unit/L 0 - 37 09/29 [place] CHEM PANEL Alk Phos 82 unit/L 39 - 136 09/29 [place] CHEM PANEL Chloride Lvl 106 meq/L 95 - 109 09/29 [place] CHEM PANEL Albumin Lvl 3.7 g/dL 3.5 - 5.0 09/29 [place] CHEM PANEL ALT 20 unit/L 0 - 65 09/29 [place] CHEM PANEL Total Protein 7.2 g/dL 6.4 - 8.4 09/29 [place] CHEM PANEL Calcium Lvl 8.3 mg/dL 8.5 - 10.5 09/29 [place] CHEM PANEL CO2 25 meq/L 24 - 32 09/29 [place] CHEM PANEL Glucose Lvl 95 mg/dL 70 - 99 09/29 2Interpretive Data: Adult reference range values reflect the clinical guidelines of the [place] [employer]. [place] CHEM PANEL Potassium Lvl 3.5 meq/L 3.5 - 5.1 09/29 [place] CHEM PANEL Sodium Lvl 139 meq/L 135 - 145 09/29 [place] CHEM PANEL Creatinine 0.6 mg/dL 0.5 - 1.4 09/29 MH Lv [place] CHEM PANEL BUN 8 mg/dL 7 - 22 09/29 [place] CHEM PANEL A/G Ratio 1.1 0.7 - 1.6 09/29 [place] CHEM PANEL AGAP 11.5 meq/L 10.0 - 09/29 MH 20.0 [place] CHEM PANEL B/C Ratio 13 6 - 25 09/29 [place] CHEM PANEL Globulin 3.5 g/dL 2.0 - 4.0 09/29 [place] HEMATOLOGY PTT 32.8 s 22.9 - 09/29 4Interpretive 35.8 Data: Heparin [place] Therapeutic [place] Range: 57 - 92 Seconds HEMATOLOGY INR 0.98 0.85 - 09/29 3Interpretive Data: RECOMMENDED RANGES FOR PROTIME INR: 1.17 2.0-3.0 for most medical and surgical thromboembolic states. [place] 2.5-3.5 for artificial heart valves and recurrent embolism. [place] INR SHOULD BE USED ONLY FOR PATIENTS ON STABLE ANTICOAGULANT THERAPY. HEMATOLOGY PT 13.0 s 12.0 - 09/29 MH 14.7 [place] HEMATOLOGY MCHC 29.6 g/dL 32.0 - 09/29 MH 36.0 /2014 [place] HEMATOLOGY MCH 20.2 pg 27.0 - 09/29 MH 31.0 /2014 [place] HEMATOLOGY MCV 68.1 fL 80.0 - 09/29 MH 98.0 /2014 [place] HEMATOLOGY Hct 30.2 % 36.0 - 09/29 MH 48.0 /2014 [place] HEMATOLOGY Hgb 8.9 g/dL 12.0 - 09/29 MH 16.0 [place] HEMATOLOGY MPV 7.3 fL 7.4 - 10.4 09/29 [place] HEMATOLOGY Platelet 388 K/CMM 133 - 450 09/29 [place] HEMATOLOGY RDW 17.3 % 11.5 - 09/29 MH 14.5 [place] HEMATOLOGY RBC 4.44 M/CMM 4.20 - 09/29 MH 5.40 /2014 [place] HEMATOLOGY WBC 16.7 K/CMM 3.7 - 10.4 09/29 [place] HEMATOLOGY Segs-Bands # 14.1 K/CMM 1.5 - 8.1 09/29 [place] HEMATOLOGY Basophils 0.1 % 0.0 - 1.0 09/29 [place] HEMATOLOGY Lymphocytes # 1.7 K/CMM 1.0 - 5.5 09/29 [place] HEMATOLOGY Eosinophils 0.2 % 0.0 - 4.0 09/29 [place] HEMATOLOGY Lymphocytes 10.3 % 20.0 - 09/29 MH 40.0 [place] HEMATOLOGY Segs 84.3 % 45.0 - 09/29 MH 75.0 [place] HEMATOLOGY Plt Morph Normal 09/29 [place] (09/29/14 12:40 AM) [place] HEMATOLOGY Monocytes 5.1 % 2.0 - 12.0 09/29 [place] HEMATOLOGY Toxic Gran Moderate None Seen 09/29 [place] *ABN* [place] (09/29/14 12:40 AM) HEMATOLOGY Hypochrom 1+ None Seen 09/29 [place] (09/29/14 12:40 AM) [place] HEMATOLOGY Microcyte 1+ None Seen 09/29 [place] *ABN* [place] (09/29/14 12:40 AM) HEMATOLOGY Anisocyte 2+ None Seen 09/29 [place] *ABN* [place] (09/29/14 12:40 AM) HEMATOLOGY Eosinophils # 0.0 K/CMM 0.0 - 0.5 09/29 [place] HEMATOLOGY Basophils # 0.0 K/CMM 0.0 - 0.2 09/29 [place] HEMATOLOGY Monocytes # 0.8 K/CMM 0.0 - 0.8 09/29 [place] URINE AND UA Bacteria Few /HPF None Seen 09/29 STOOL /HPF [place] URINE AND UA RBC 3-5 /HPF 0 - 2 09/29 STOOL [place] URINE AND UA Leuk Est Small Negative 09/29 STOOL [place] *ABN* [place] (09/28/14 11:54 PM) URINE AND UA 0.2 EU/dL 0.1 - 1.0 09/29 STOOL Urobilinogen /2014 [place] URINE AND UA Nitrite Negative Negative 09/29 STOOL [place] (09/28/14 11:54 PM) [place] URINE AND UA WBC 51-100 /HPF None Seen 09/29 STOOL /HPF [place] URINE AND UA Sq Epi Occasional Few /LPF 09/29 STOOL /LPF /2014 [place] URINE AND UA Blood Moderate Negative 09/29 STOOL [place] *ABN* [place] (09/28/14 11:54 PM) URINE AND UA Bili Negative Negative 09/29 STOOL [place] *NA* [place] (09/28/14 11:54 PM) URINE AND UA Ketones 40 mg/dL Negative 09/29 STOOL mg/dL [place] URINE AND UA Protein 100 mg/dL Negative 09/29 [facility]OOL mg/dL [place] URINE AND UA pH 5.5 5.0 - 8.0 09/29 STOOL [place] URINE AND UA Spec Grav 1.025 <=1.030 09/29 STOOL [place] URINE AND UA Turbidity Slight Cloudy Clear 09/29 STOOL [place] (09/28/14 11:54 PM) [place] URINE AND UA Color Yellow Yellow 09/29 STOOL /2014 [place] *NA* [place] (09/28/14 11:54 PM) URINE AND UA Glucose Negative Negative 09/29 STOOL /2014 [place] (09/28/14 11:54 PM) [place] URINE CHEM U Preg Negative Negative 09/29 /2014 [place] (09/28/14 11:54 PM) [place] Abdomen/Pel Abdomen/Pelvi CLINICAL HISTORY: See Clinic Indication , Abdominal pain, acute 09/29 - MH vis wo IV s wo IV /2014 - [place] contrast CT contrast CT [place] EXAM: CT abdomen and pelvis without contrast Sep 29, 2014 12:46:00 AM Read by: Eduard Wall MD Dictated Date/time: 09/29/14 00:55 Electronically Signed by: Eduard Wall MD 09/29/14 00:58 FINAL REPORT COMPARISON: CT abdomen and pelvis with contrast December 29, 2013 TECHNIQUE: Volumetric CT acquisition was performed through the abdomen and pelvis. Images in the axial, coronal, and sagittal planes were presented for interpretation. No intravenous or enteric contrast was administered. Radiation dose/contrast: Total DLP:511.83mgy-cm FINDINGS: The lung bases are clear. The visualized cardiomediastinal structures within normal limits. Within the upper abdomen, the liver and spleen are normal in size and morphology. The gallbladder is normal in appearance. There is no intra or extrahepatic biliary ductal dilation. The pancreas and adrenal glands are normal in appearance. The right kidney is normal in size. There is mild distention of the right renal pelvis and ureter. There are no right renal calculi or distal obstructing stones. The left kidney is normal in size and the left ureter is normal in course and caliber. There are no left renal calculi, distal obstructing stones, or evidence of hydronephrosis/hydroureter. The stomach and small intestines are within normal limits without wall thickening or bowel dilation. The appendix is well-visualized and normal contrast seen on axial image 50 posterior to the cecum. The colon is stool filled and otherwise unremarkable. Within the pelvis, the bladder and rectum are normal. The uterus and ovaries are age-appropriate. There are no pathologically enlarged inguinal, retroperitoneal, portacaval , or mesenteric lymph nodes. The soft tissue structures of the abdominal wall are normal in appearance. The visualized osseous structures within normal limits for the patient's age. The abdominal aorta and its primary branches are normal in course and caliber. IMPRESSIONS: 1. Mild distention of the right renal pelvis and ureter without renal calculi or distal obstructing stones. This may represent recent stone passage. 2. Otherwise no acute intra-abdominal process. Fluoroscopy Fluoroscopy No report is required for this exam. 12/29 - [facility] assist to 1 assist to - [place] hour DX hour DX Technical component complete. Fluoroscopy time was 136 seconds with a total dose of 15.4 mgy. [place] Electronically Signed by: Samantha Fink RT 12/29/13 13:03 FINAL REPORT CHEM PANEL Lipase Lvl 128 unit/L 73 - 393 12/29 [place] CHEM PANEL eGFR 96 12/29 1Result Comment: The eGFR is calculated using the CKD-EPI formula. In most young, healthy individuals the eGFR will be >90 mL/ min/1.73m2. The eGFR declines with age. An eGFR of 60-89 may be normal in mL/min/1.73 some populations, particularly the elderly, for whom the CKD-EPI formula has not been extensively validated. Use of the eGFR is not recommended in the following populations: [place] Individuals with unstable creatinine concentrations, including patients and those with serious co-morbid conditions. Patients with extremes in muscle mass or diet. The data above are obtained from the National Kidney Disease Education Program (NKDEP) which additionally recommends that when the eGFR is used in patients with extremes of body mass index for purposes of drug dosing, the eGFR should be multiplied by the estimated BMI. CHEM PANEL Bili Total 0.2 mg/dL 0.2 - 1.3 12/29 [place] CHEM PANEL Alk Phos 90 unit/L 39 - 136 12/29 [place] CHEM PANEL AST 17 unit/L 0 - 37 12/29 [place] CHEM PANEL ALT 23 unit/L 0 - 65 12/29 [place] CHEM PANEL Albumin Lvl 3.5 g/dL 3.5 - 5.0 12/29 [place] CHEM PANEL Total Protein 7.1 g/dL 6.4 - 8.4 12/29 [place] CHEM PANEL Calcium Lvl 8.6 mg/dL 8.5 - 10.5 12/29 [place] CHEM PANEL CO2 25 meq/L 24 - 32 12/29 [place] CHEM PANEL Chloride Lvl 107 meq/L 95 - 109 12/29 [place] CHEM PANEL Potassium Lvl 4.3 meq/L 3.5 - 5.1 12/29 [place] CHEM PANEL Sodium Lvl 140 meq/L 135 - 145 12/29 [place] CHEM PANEL Creatinine 0.8 mg/dL 0.5 - 1.4 12/29 [facility] Lvl /2013 [place] CHEM PANEL BUN 17 mg/dL 7 - 22 12/29 [place] CHEM PANEL Glucose Lvl 90 mg/dL 70 - 99 12/29 2Interpretive Data: Adult reference range values reflect the clinical guidelines of the [place] [employer]. [place] CHEM PANEL A/G Ratio 1.0 0.7 - 1.6 12/29 [place] CHEM PANEL AGAP 12.3 meq/L 10.0 - 12/29 MH 20.0 [place] CHEM PANEL Globulin 3.6 g/dL 2.0 - 4.0 12/29 [place] CHEM PANEL B/C Ratio 21 6 - 25 12/29 [place] HEMATOLOGY MCV 84.0 fL 80.0 - 12/29 MH 98.0 [place] HEMATOLOGY MCH 28.0 pg 27.0 - 12/29 MH 31.0 [place] HEMATOLOGY MCHC 33.3 g/dL 32.0 - 12/29 MH 36.0 [place] HEMATOLOGY RDW 13.8 % 11.5 - 12/29 MH 14.5 [place] HEMATOLOGY Platelet 378 K/CMM 133 - 450 12/29 [place] HEMATOLOGY WBC 12.2 K/CMM 3.7 - 10.4 12/29 [place] HEMATOLOGY Hgb 12.5 g/dL 12.0 - 12/29 MH 16.0 [place] HEMATOLOGY RBC 4.47 M/CMM 4.20 - 12/29 MH 5.40 /2013 [place] HEMATOLOGY Hct 37.5 % 36.0 - 12/29 MH 48.0 [place] HEMATOLOGY MPV 7.2 fL 7.4 - 10.4 12/29 [place] HEMATOLOGY Basophils 0.5 % 0.0 - 1.0 12/29 [place] HEMATOLOGY Eosinophils 1.6 % 0.0 - 4.0 12/29 [place] HEMATOLOGY Monocytes 8.0 % 2.0 - 12.0 12/29 [place] HEMATOLOGY Lymphocytes 25.9 % 20.0 - 12/29 MH 40.0 /2014 [place] HEMATOLOGY Eosinophils # 0.2 K/CMM 0.0 - 0.5 12/29 [place] HEMATOLOGY Monocytes # 1.0 K/CMM 0.0 - 0.8 12/29 [place] HEMATOLOGY Lymphocytes # 3.2 K/CMM 1.0 - 5.5 12/29 [place] HEMATOLOGY Segs-Bands # 7.8 K/CMM 1.5 - 8.1 12/29 [place] HEMATOLOGY Basophils # 0.1 K/CMM 0.0 - 0.2 12/29 [place] HEMATOLOGY Segs 64.0 % 45.0 - 12/29 75.0 /2013 [place] URINE AND UA Bacteria Few /HPF None Seen 12/29 STOOL /HPF [place] URINE AND UA RBC 3-5 /HPF 0 - 2 12/29 [place] URINE AND UA pH 6.0 5.0 - 8.0 12/29 [place] URINE AND UA Protein Negative Negative 12/29 [place] (12/29/13 12:39 AM) [place] URINE AND UA Glucose Negative Negative 12/29 [place] (12/29/13 12:39 AM) [place] URINE AND UA Turbidity Clear Clear 12/29 [place] (12/29/13 12:39 AM) [place] URINE AND UA Spec Grav 1.010 <=1.030 12/29 [place] URINE AND UA Color Yellow Yellow 12/29 [place] *NA* [place] (12/29/13 12:39 AM) URINE AND UA Sq Epi Few /LPF Few /LPF 12/29 [place] URINE AND UA WBC 0-2 /HPF None Seen 12/29 STOOL /HPF [place] URINE AND UA Leuk Est Negative Negative 12/29 [place] (12/29/13 12:39 AM) [place] URINE AND UA Nitrite Negative Negative 12/29 [place] (12/29/13 12:39 AM) [place] URINE AND UA 0.2 EU/dL 0.1 - 1.0 12/29 STOOL Urobilinogen /2013 [place] URINE AND UA Blood Moderate Negative 12/29 STOOL [place] *ABN* [place] (12/29/13 12:39 AM) URINE AND UA Ketones Negative Negative 12/29 STOOL [place] *NA* [place] (12/29/13 12:39 AM) URINE AND UA Bili Negative Negative 12/29 STOOL [place] *NA* [place] (12/29/13 12:39 AM) URINE CHEM U Preg Negative Negative 12/29 [place] (12/29/13 12:39 AM) [place] CHEMISTRY Chloride Lvl 106 meq/L 95 - 109 10/22 Normal [place] CHEMISTRY Potassium Lvl 3.3 meq/L 3.5 - 5.1 10/22 LOW [place] CHEMISTRY Sodium Lvl 141 meq/L 135 - 145 10/22 Normal [place] CHEMISTRY AST 10 U/L 0 - 37 10/22 Normal [place] CHEMISTRY Bili Total 0.3 mg/dL 0.2 - 1.3 10/22 Normal [place] CHEMISTRY ALT 17 U/L 0 - 65 10/22 Normal [place] CHEMISTRY Alk Phos 50 U/L 39 - 136 10/22 Normal [place] CHEMISTRY Total Protein 7.5 g/dL 6.4 - 8.4 10/22 Normal [place] CHEMISTRY Calcium Lvl 8.5 mg/dL 8.5 - 10.5 10/22 Normal [place] CHEMISTRY Albumin Lvl 4.0 g/dL 3.5 - 5.0 10/22 Normal [place] CHEMISTRY CO2 24 meq/L 24 - 32 10/22 Normal [place] CHEMISTRY Creatinine 0.6 mg/dL 0.5 - 1.4 10/22 Normal [facility] Lvl /2011 [place] CHEMISTRY BUN 8 mg/dL 7 - 22 10/22 Normal [place] CHEMISTRY Glucose Lvl 90 mg/dL 70 - 99 10/22 Normal 1Interpretive Data: Adult reference range values reflect the clinical guidelines of the [place] [employer]. [place] CHEMISTRY AGAP 14.3 meq/L 10.0 - 10/22 Normal [facility] 20.0 [place] CHEMISTRY A/G Ratio 1.1 0.7 - 1.6 10/22 Normal MH /2011 [place] CHEMISTRY Globulin 3.5 g/dL 2.0 - 4.0 07/ Normal MH /2011 [place] CHEMISTRY B/C Ratio 13 6 - 25 10/22 Normal MH /2011 [place] HEMATOLOGY MCH 24.9 pg 27.0 - 07 LOW [facility] 31.0 /2011 [place] HEMATOLOGY MPV 7.5 fL 7.4 - 10.4 10/22 Normal /2011 [place] HEMATOLOGY Platelet 370 K/CMM 133 - 450 10/22 Normal MH /2011 [place] HEMATOLOGY RDW 16.3 % 11.5 - 07 HI MH 14.5 /2011 [place] HEMATOLOGY MCHC 32.3 g/dL 32.0 - 10/22 Normal MH 36.0 /2011 [place] HEMATOLOGY MCV 77.3 fL 81.0 - 10/22 LOW MH 99.0 /2011 [place] HEMATOLOGY Hgb 10.9 g/dL 12.0 - 10/22 LOW MH 16.0 [place] HEMATOLOGY WBC 9.8 K/CMM 3.7 - 10.4 10/22 Normal MH /2011 [place] HEMATOLOGY Hct 33.8 % 36.0 - 07 LOW MH 48.0 /2011 [place] HEMATOLOGY RBC 4.38 M/CMM 4.20 - 10/22 Normal MH 5.40 /2011 [place] HEMATOLOGY Eosinophils 0.6 % 0.0 - 4.0 / Normal /2011 [place] HEMATOLOGY Monocytes # 0.8 K/CMM 0.0 - 0.8 / Normal /2011 [place] HEMATOLOGY Lymphocytes # 2.8 K/CMM 1.0 - 5.5 10/22 Normal /2011 [place] HEMATOLOGY Basophils 0.3 % 0.0 - 1.0 07/ Normal MH /2011 [place] HEMATOLOGY Segs-Bands # 6.1 K/CMM 1.5 - 8.1 / Normal /2011 [place] HEMATOLOGY Monocytes 8.3 % 2.0 - 12.0 / Normal MH /2011 [place] HEMATOLOGY Segs 62.2 % 45.0 - 07 Normal MH 75.0 /2012 [place] HEMATOLOGY Eosinophils # 0.1 K/CMM 0.0 - 0.5 07/ Normal /2011 [place] HEMATOLOGY Basophils # 0.0 K/CMM 0.0 - 0.2 07/ Normal MH /2011 [place] HEMATOLOGY Lymphocytes 28.6 % 20.0 - 10/22 Normal 40.0 [place] URINALYSIS UA Protein Negative Negative 10/18 Normal [place] (10/19/2011 12:31:00) [place] URINALYSIS UA Bili Negative Negative 10/18 NA [place] *NA* [place] (10/19/2011 12:31:00) URINALYSIS UA Ketones Negative Negative 10/18 NA [place] *NA* [place] (10/19/2011 12:31:00) URINALYSIS UA Glucose Negative Negative 10/18 Normal [place] (10/19/2011 12:31:00) [place] URINALYSIS UA Nitrite Negative Negative 10/18 Normal [place] (10/19/2011 12:31:00) [place] URINALYSIS UA 0.2 EU/dL 0.1 - 1.0 10/18 Normal Urobilino [place] URINALYSIS UA WBC 0-2 /HPF None Seen 10/18 Normal [place] (10/19/2011 12:31:00) [place] URINALYSIS UA Blood Moderate Negative 10/18 [facility] [place] *ABN* [facility] (10/19/2011 12:31:00) URINALYSIS Micro? Performed 10/18 Normal [place] (10/19/2011 12:31:00) [place] URINALYSIS UA Leuk Est Negative Negative 10/18 Normal [place] (10/19/2011 12:31:00) [place] URINALYSIS UA Sq Epi Many /LPF Few 10/18 ABN [place] *ABN* [place] (10/19/2011 12:31:00) URINALYSIS UA Mucus Moderate /LPF None Seen 10/18 ABN [place] *ABN* [place] (10/19/2011 12:31:00) URINALYSIS UA Bacteria Occasional /HPF None Seen 10/18 Normal [place] (10/19/2011 12:31:00) [place] URINALYSIS UA RBC 3-5 /HPF 0 - 2 10/18 ABN [place] *ABN* [place] (10/19/2011 12:31:00) URINALYSIS UA Color Yellow Yellow 10/18 NA [place] *NA* [place] (10/19/2011 12:31:00) URINALYSIS UA Turbidity Clear Clear 10/18 Normal [place] (10/19/2011 12:31:00) [facility] URINALYSIS UA Spec Grav 1.020 <=1.030 10/18 Normal [place] URINALYSIS UA pH 6.0 5.0 - 8.0 10/18 Normal [place] Microbiolog Culture: 10/18 y Urine [place] INFECTIOUS C difficile Negative 1 Negative 10/18 Normal 1Interpretive Data: [employer] Clostridium difficile assay utilizes loop-mediated isothermal DNA amplification (LAMP) technology to detect a 204 bp region of the tcdA gene within the PaLoc gene DISEASES segment present in all known toxigenic C. difficile strains. [facility] (10/19/2011 12:30:00) [facility] The assay utilizes FDA cleared IVD reagents. Performance characteristics have been verified by the [facility] Laboratory within the [facility]. The Molecular Diagnostic Laboratory is authorized under the Clinical Laboratory Improvement Amendment of 1988 (CLIA-88) to perform high complexity testing. CHEMISTRY Lipase Lvl 105 U/L 73 - 393 10/18 Normal [place] CHEMISTRY Bili Total 0.4 mg/dL 0.2 - 1.3 10/18 Normal [place] CHEMISTRY AST 9 U/L 0 - 37 10/18 Normal [place] CHEMISTRY Chloride Lvl 106 meq/L 95 - 109 10/18 Normal [place] CHEMISTRY Potassium Lvl 3.2 meq/L 3.5 - 5.1 10/18 LOW [place] CHEMISTRY Creatinine 0.6 mg/dL 0.5 - 1.4 10/18 Normal Lvl [place] CHEMISTRY Sodium Lvl 141 meq/L 135 - 145 10/18 Normal [place] CHEMISTRY CO2 25 meq/L 24 - 32 10/18 Normal [place] CHEMISTRY ALT 15 U/L 0 - 65 10/18 Normal [place] CHEMISTRY Total Protein 7.5 g/dL 6.4 - 8.4 10/18 Normal [place] CHEMISTRY Calcium Lvl 8.7 mg/dL 8.5 - 10.5 10/18 Normal [place] CHEMISTRY Alk Phos 48 U/L 39 - 136 10/18 Normal [place] CHEMISTRY Albumin Lvl 3.9 g/dL 3.5 - 5.0 10/18 Normal [place] CHEMISTRY BUN 10 mg/dL 7 - 22 10/18 Normal /2011 [place] CHEMISTRY Glucose Lvl 92 mg/dL 70 - 99 10/18 Normal 2Interpretive Data: Adult reference range values reflect the clinical guidelines of the [place] [employer]. [place] CHEMISTRY A/G Ratio 1.1 0.7 - 1.6 10/18 Normal [place] CHEMISTRY AGAP 13.2 meq/L 10.0 - 10/18 Normal MH 20.0 [place] CHEMISTRY Globulin 3.6 g/dL 2.0 - 4.0 10/18 Normal [place] CHEMISTRY B/C Ratio 17 6 - 25 10/18 Normal [place] HEMATOLOGY Basophils # 0.0 K/CMM 0.0 - 0.2 10/18 Normal [place] HEMATOLOGY Eosinophils # 0.0 K/CMM 0.0 - 0.5 10/18 Normal [place] HEMATOLOGY Monocytes # 1.2 K/CMM 0.0 - 0.8 10/18 HI [place] HEMATOLOGY Microcyte 1+ None Seen 10/18 ABN [facility] /2011 [place] *ABN* [place] (10/19/2011 12:22:00) HEMATOLOGY Hypochrom Slight None Seen 10/18 Normal [place] (10/19/2011 12:22:00) [place] HEMATOLOGY Lymphocytes # 1.2 K/CMM 1.0 - 5.5 10/18 Normal [place] HEMATOLOGY Eosinophils 0.0 % 0.0 - 4.0 10/18 Normal [place] HEMATOLOGY Segs-Bands # 11.1 K/CMM 1.5 - 8.1 10/18 HI [place] HEMATOLOGY Basophils 0.0 % 0.0 - 1.0 10/18 Normal [place] HEMATOLOGY Monocytes 8.9 % 2.0 - 12.0 10/18 Normal [place] HEMATOLOGY Segs 82.4 % 45.0 - 10/18 HI MH 75.0 /2011 [place] HEMATOLOGY Lymphocytes 8.7 % 20.0 - 10/18 LOW MH 40.0 /2012 [place] HEMATOLOGY Plt Morph Normal 10/18 Normal [place] (10/19/2011 12:22:00) [place] HEMATOLOGY RDW 16.1 % 11.5 - 07 HI MH 14.5 /2011 [place] HEMATOLOGY Platelet 345 K/CMM 133 - 450 10/18 Normal MH /2011 [place] HEMATOLOGY MPV 7.8 fL 7.4 - 10.4 10/18 Normal MH /2011 [place] HEMATOLOGY MCH 25.1 pg 27.0 - 10/18 LOW MH 31.0 /2011 [place] HEMATOLOGY MCHC 32.0 g/dL 32.0 - 10/18 Normal MH 36.0 /2011 [place] HEMATOLOGY MCV 78.5 fL 81.0 - 10/18 LOW MH 99.0 /2011 [place] HEMATOLOGY Hgb 10.8 g/dL 12.0 - 10/18 LOW MH 16.0 /2011 [place] HEMATOLOGY RBC 4.29 M/CMM 4.20 - 10/18 Normal MH 5.40 /2011 [place] HEMATOLOGY Hct 33.7 % 36.0 - 10/18 LOW MH 48.0 /2011 [place] HEMATOLOGY WBC 13.5 K/CMM 3.7 - 10.4 10/18 HI MH /2011 [place] Vital Signs Vital Sign Value Date Comments Source Temperature Oral (F) 98.4 F 11/13/2017 MH [place] Heart Rate 71 11/13/2017 [place] Respitory Rate 16 11/13/2017 MH [place] Systolic (mm Hg) 115 11/13/2017 MH [place] Diastolic (mm Hg) 75 11/13/2017 [place] Respitory Rate 16 11/13/2017 [place] Heart Rate 75 11/13/2017 MH [place] Systolic (mm Hg) 112 11/13/2017 MH [place] Diastolic (mm Hg) 72 11/13/2017 [place] Temperature Oral (F) 98.8 F 11/13/2017 [place] Temperature Oral (F) 97.5 F 11/13/2017 [place] Heart Rate 65 11/13/2017 [place] Respitory Rate 16 11/13/2017 [place] Systolic (mm Hg) 125 11/13/2017 MH [place] Diastolic (mm Hg) 85 11/13/2017 [place] Weight 67.898 11/12/2017 [place] BMI Calculated 26.52 11/12/2017 [place] Height 160.02 cm 11/12/2017 [place] Height 160.02 cm 11/11/2017 [place] BMI Calculated 26.49 11/11/2017 [place] Weight 67.841 11/11/2017 MH [place] Systolic (mm Hg) 134 11/08/2017 MH [place] Diastolic (mm Hg) 86 11/08/2017 MH [place] Heart Rate 76 11/08/2017 MH [place] Temperature Oral (F) 98.6 F 11/08/2017 MH [place] Respitory Rate 20 11/08/2017 MH [place] Systolic (mm Hg) 129 11/08/2017 MH [place] Diastolic (mm Hg) 87 11/08/2017 MH [place] Respitory Rate 18 11/08/2017 MH [place] Heart Rate 74 11/08/2017 MH [place] Temperature Oral (F) 98.5 F 11/08/2017 MH [place] Systolic (mm Hg) 123 11/08/2017 MH [place] Diastolic (mm Hg) 73 11/08/2017 [place] Temperature Oral (F) 98.6 F 11/08/2017 MH [place] Respitory Rate 18 11/08/2017 MH [place] Heart Rate 78 11/08/2017 MH [place] BMI Calculated 27.38 11/07/2017 MH [place] Weight 70.114 11/07/2017 [place] Temperature Oral (F) 99.1 F 11/04/2017 MH [place] Systolic (mm Hg) 137 11/04/2017 MH [place] Diastolic (mm Hg) 80 11/04/2017 MH [place] Heart Rate 82 11/04/2017 MH [place] Respitory Rate 18 11/04/2017 MH [place] Respitory Rate 18 11/04/2017 MH [place] Heart Rate 75 11/04/2017 [place] BMI Calculated 26.63 11/04/2017 MH [place] Weight 68.182 11/04/2017 [place] Temperature Oral (F) 98 F 11/04/2017 MH [place] Height 160.02 cm 11/04/2017 MH [place] Systolic (mm Hg) 142 11/04/2017 MH [place] Diastolic (mm Hg) 91 11/04/2017 MH [place] Height 160.02 cm 11/01/2017 [place] Temperature Oral (F) 98.2 F 04/21/2017 MH [place] Systolic (mm Hg) 138 04/21/2017 MH [place] Diastolic (mm Hg) 81 04/21/2017 MH [place] Respitory Rate 20 04/21/2017 MH [place] Heart Rate 87 04/21/2017 MH [place] Weight 76.227 04/21/2017 MH [place] BMI Calculated 27.12 04/21/2017 [place] Height 167.64 cm 04/21/2017 [place] Respitory Rate 22 04/21/2017 [place] Temperature Oral (F) 98.2 F 04/21/2017 [place] Heart Rate 91 04/21/2017 MH [place] Systolic (mm Hg) 141 04/21/2017 MH [place] Diastolic (mm Hg) 86 04/21/2017 [place] Temperature Oral (F) 98.0 F 05/23/2015 MH [place] Systolic (mm Hg) 119 05/23/2015 MH [place] Diastolic (mm Hg) 75 05/23/2015 [place] Heart Rate 92 05/23/2015 [place] Respitory Rate 18 05/23/2015 [place] Respitory Rate 18 05/23/2015 [place] Heart Rate 84 05/23/2015 [place] Temperature Oral (F) 97.8 F 05/23/2015 [place] Systolic (mm Hg) 144 05/23/2015 MH [place] Diastolic (mm Hg) 93 05/23/2015 [place] Weight 70.455 05/23/2015 [place] Temperature Oral (F) 98.0 F 09/29/2014 MH [place] Systolic (mm Hg) 108 09/29/2014 MH [place] Diastolic (mm Hg) 67 09/29/2014 [place] Heart Rate 77 09/29/2014 [place] Respitory Rate 18 09/29/2014 [place] Weight 73.636 09/29/2014 [place] Temperature Oral (F) 97.8 F 09/29/2014 [place] Respitory Rate 20 09/29/2014 MH [place] Systolic (mm Hg) 146 09/29/2014 MH [place] Diastolic (mm Hg) 85 09/29/2014 [place] Heart Rate 93 09/29/2014 MH [place] Diastolic (mm Hg) 75 12/29/2013 [place] Respitory Rate 16 12/29/2013 MH [place] Systolic (mm Hg) 127 12/29/2013 [place] Temperature Oral (F) 98.1 F 12/29/2013 [place] Heart Rate 76 12/29/2013 MH [place] Systolic (mm Hg) 117 12/29/2013 MH [place] Diastolic (mm Hg) 68 12/29/2013 [place] Respitory Rate 15 12/29/2013 MH [place] Diastolic (mm Hg) 81 12/29/2013 [place] Systolic (mm Hg) 106 12/29/2013 [place] Respitory Rate 16 12/29/2013 [place] Heart Rate 65 12/29/2013 [place] Temperature Oral (F) 98.7 F 12/29/2013 [place] Heart Rate 81 12/29/2013 [place] Temperature Oral (F) 98.6 F 12/29/2013 [place] Weight 71.989 12/29/2013 [place] BMI Calculated 27.24 12/29/2013 [place] Height 162.56 cm 12/29/2013 [place] Height 160.02 cm 10/22/2011 [place] Weight 74.091 10/22/2011 [place] Weight 62.386 10/19/2011 [place] Encounters Location Location Encounter Encounter Reason Attending ADM DC Status Source Details Type Number For Provider Date Date Visit Emergency [id number] CHEST SHELISE 10/18 10/18 Active [place] PAIN LAUREN /2011 [place] Emergency [id number] FAST MARK 10/21 10/21 Active [place] HEART SHEPHERD /2011 [place] [facility] Bedded [id number] Ronald 12/29 12/29 [facility] Outpatient [place] /2013 [place] [facility] [place] [id number] Mary Nino 09/29 09/29 [place] Emergency /2014 [place] [facility] [place] [id number] Doris Candice 05/23 05/23 [place] Emergency /2015 [place] [facility] Emergency [id number] Griffin Gonzales 04/21 04/21 [place] /2017 [place] [facility] Outpt Diag [id number] Shane 09/27 09/28 [facility] Georgi /2017 [place] [facility] [place] [facility] Emergency [id number] Jaime 11/04 11/04 [facility] Tuttle /2017 [place] [facility] [id number] Shane 11/07 11/08 [facility] Outpatient Georgi /2017 [place] [facility] [id number] Noha 11/11 11/13 [place] Barcenas /2017 [place] Procedures Procedure Code Date Perfomer Comments Source Esophagogastroduodenoscopy [id number] 09/08/19 [place] [facility] [place] Cystoscopy and retrograde [id number] 12/30/19 Cystoscopy [facility] pyelography<sup>1</sup> 14 under [place] anesthesia, [place] right ureteroscopy, laser lithotripsy and basket extraction of stone, right retrograde pyelogram and right ureteral stent placement. Cystoscopy and retrograde [id number] 12/30/19 Cystoscopy [facility] [place] pyelography<sup>1</sup> 14 [facility] [place] anesthesia, right ureteroscopy, laser lithotripsy and basket extraction of stone, right retrograde pyelogram and right ureteral stent placement. section [id number] 05/22/19 MH [place] [facility] [place] Colonoscopy [id number] 04/09/19 [place] [facility] [place] section [id number] [facility] [place] Colonoscopy [id number] [facility] [place] section [id number] MH [place] Colonoscopy [id number] MH [place] Cochleostomy [id number] [facility] [place]
--- OUTSIDE RECORDS SUMMARY | 2018-06-11 11:01 | XMS REPORT | Summary of Care ---
:1980 Author Organization [facility] Address [address], [place] [address]- Encounter HQ Encntr_alias(FIN) [id number] Date(s): 04/21/17 - 04/21/17 [facility] [id number] [place] [id number]- Encounter Diagnosis Malaise (Discharge Diagnosis) - 04/21/17 Discharge Disposition: Home or Self Care Attending Physician: Griffin Gonzales MD Vital Signs Most recent to oldest [Reference Range]: 1 2 Height 167.64 cm (04/21/17 7:57 AM) Temperature Oral [96.4-99.1 DegF] 98.2 DegF 98.2 DegF (04/21/17 9:45 AM) (04/21/17 7:57 AM) Blood Pressure [90-140/60-90 mmHg] 138/81 mmHg 141/86 mmHg (04/21/17 9:45 AM) *HI* (04/21/17 7:57 AM) Respiratory Rate [14-20 BRMIN] 20 BRMIN 22 BRMIN (04/21/17 9:45 AM) *HI* (04/21/17 7:57 AM) Peripheral Pulse Rate [60-100 bpm] 87 bpm 91 bpm (04/21/17 9:45 AM) (04/21/17 7:57 AM) Weight 76.227 kg (04/21/17 7:57 AM) Body Mass Index 27.12 m2 (04/21/17 7:57 AM) Problem List Condition Effective Dates Status Health Status Informant Ureteric stone1 01/07/14 Active 1Data migrated from [employer] on 09/05/14. Allergies, Adverse Reactions, Alerts Substance Reaction Severity Status levofloxacin1 Active Levaquin rapid heart beat Active rash NKFA Active 1Data migrated from [facility] on 08/07/14. Originally documented as LEVAQUIN. Medications Benadryl 12.5 mg, 0.25 mL, Route: IVP, Drug form: INJ, ONCE, Dosing Weight 70.455, kg, Priority: STAT, Start date: 04/21/17 8:03:00 READING SPECIALIST, Stop date: 04/21/17 8:03:00 READING SPECIALIST Notes: (Same as: Benadryl) Start Date: 04/21/17 Stop Date: 04/21/17 Status: CompletedDiflucan 150 mg oral tablet 150 mg=1 tab, PO, ONCE, # 1 tab, 0 Refill(s) Start Date: 04/21/17 Status: OrderedRocephin + sterile water 10 mL 1 gm, Route: IVPB, ONCE, Dosing Weight 70.455, kg, Priority: STAT, Start date: 04/21/17 8:03:00 READING SPECIALIST,Stop date: 04/21/17 8:03:00 READING SPECIALIST, ABX Indication: Urinary Tract Infection Notes: (Same As: Rocephin).Use with 100 mL NS and infuse over 30 min MEDICATION WASTE Product Size: 1000 mgProduct Wasted: ___ mg Start Date: 04/21/17 Stop Date: 04/21/17 Status: CompletedSaline Flush 0.9% 10 mL, Route: IVP, Drug Form: INJ, Dosing Weight 70.455, kg, PRN, PRN Line Flush , Start date: 04/21/17 8:01:00 READING SPECIALIST, Duration: 30 day, Stop date: 05/21/17 8:00: 00 READING SPECIALIST Notes: (Same as: BD Posiflush) Start Date: 04/21/17 Stop Date: 04/21/17 Status: DiscontinuedSodium Chloride 0.9% (Bolus) IV 1,000 mL, 1000 ml/hr, Infuse Over: 1 hr, Route: IV, 1,000, Drug form: INJ, ONCE , Priority: STAT, Dosing Weight 70.455 kg, Start date: 04/21/17 8:01:00 READING SPECIALIST, Stop date: 04/21/17 8:01:00 READING SPECIALIST Start Date: 04/21/17 Stop Date: 04/21/17 Status: Completed Results ELECTROLYTES Most recent to oldest [Reference Range]: 1 Sodium Lvl [135-145 mEq/L] 139 mEq/L (04/21/17 8:43 AM) Potassium Lvl [3.5-5.1 mEq/L] 3.7 mEq/L (04/21/17 8:43 AM) Chloride Lvl [95-109 mEq/L] 106 mEq/L (04/21/17 8:43 AM) CO2 [24-32 mEq/L] 25 mEq/L (04/21/17 8:43 AM) AGAP [10.0-20.0 mEq/L] 11.7 mEq/L (04/21/17 8:43 AM) CHEM PANEL Most recent to oldest [Reference Range]: 1 Creatinine Lvl [0.50-1.40 mg/dL] 0.59 mg/dL (04/21/17 8:43 AM) eGFR 117 mL/min/1.73m2 1 *NA* (04/21/17 8:43 AM) BUN [7-22 mg/dL] 8 mg/dL (04/21/17 8:43 AM) Glucose Lvl [70-99 mg/dL] 99 mg/dL (04/21/17 8:43 AM) Calcium Lvl [8.5-10.5 mg/dL] 8.7 mg/dL (04/21/17 8:43 AM) 1Result Comment: The eGFR is calculated using the CKD-EPI formula. In most young , healthy individualsthe eGFR will be >90 mL/min/1.73m2. The eGFR declines with age. An eGFR of 60-89 may be normal insome populations, particularly the elderly, for whom the CKD-EPI formula has not been extensively validated. Use of the eGFR is not recommended in the following populations: Individuals with unstable creatinine concentrations, including patients and those with serious co-morbid conditions. Patients with extremes in muscle mass or diet. The data above are obtained from the National Kidney Disease Education Program ( NKDEP) which additionally recommends that when the eGFR is used in patients with extremes of body mass index for purposesof drug dosing, the eGFR should be multiplied by the estimated BMI.URINE AND STOOL Most recent to oldest [Reference Range]: 1 UA Turbidity [Clear] Clear (04/21/17 8:43 AM) UA Color [Yellow] Light Yellow *NA* (04/21/17 8:43 AM) UA pH [5.0-8.0] 6.0 (04/21/17 8:43 AM) UA Spec Grav [<=1.030] 1.005 (04/21/17 8:43 AM) UA Glucose [Negative mg/dL] Negative mg/dL *NA* (04/21/17 8:43 AM) UA Blood [Negative] Small *ABN* (04/21/17 8:43 AM) UA Ketones [Negative mg/dL] Negative mg/dL *NA* (04/21/17 8:43 AM) UA Protein [Negative mg/dL] Negative mg/dL (04/21/17 8:43 AM) UA Urobilinogen [0.1-1.0 mg/dL] <=1.0 mg/dL *NA* (04/21/17 8:43 AM) UA Bili [Negative] Negative *NA* (04/21/17 8:43 AM) UA Leuk Est [Negative] Negative (04/21/17 8:43 AM) UA Nitrite [Negative] Negative (04/21/17 8:43 AM) UA WBC [0-5 /HPF] 4 /HPF (04/21/17 8:43 AM) UA RBC [0-2 /HPF] <1 /HPF (04/21/17 8:43 AM) UA Bacteria [None Seen /HPF] Occasional /HPF *NA* (04/21/17 8:43 AM) UA Sq Epi [Few /LPF] Few /LPF *NA* (04/21/17 8:43 AM) UA Mucus [None Seen /LPF] Few /LPF *NA* (04/21/17 8:43 AM) HEMATOLOGY Most recent to oldest [Reference Range]: 1 WBC [3.7-10.4 K/CMM] 9.2 K/CMM (04/21/17 8:43 AM) RBC [4.20-5.40 M/CMM] 4.89 M/CMM (04/21/17 8:43 AM) Hgb [12.0-16.0 g/dL] 10.8 g/dL *LOW* (04/21/17 8:43 AM) Hct [36.0-48.0 %] 34.9 % *LOW* (04/21/17 8:43 AM) MCV [80.0-98.0 fL] 71.2 fL *LOW* (04/21/17 8:43 AM) MCH [27.0-31.0 pg] 22.1 pg *LOW* (04/21/17 8:43 AM) MCHC [32.0-36.0 g/dL] 31.1 g/dL *LOW* (04/21/17 8:43 AM) RDW [11.5-14.5 %] 19.3 % *HI* (04/21/17 8:43 AM) Platelet [133-450 K/CMM] 407 K/CMM (04/21/17 8:43 AM) MPV [7.4-10.4 fL] 7.4 fL (04/21/17 8:43 AM) Segs [45.0-75.0 %] 65.3 % (04/21/17 8:43 AM) Lymphocytes [20.0-40.0 %] 25.6 % (04/21/17 8:43 AM) Monocytes [2.0-12.0 %] 7.6 % (04/21/17 8:43 AM) Eosinophils [0.0-4.0 %] 1.5 % (04/21/17 8:43 AM) Basophils [0.0-1.0 %] 0.0 % (04/21/17 8:43 AM) Segs-Bands # [1.5-8.1 K/CMM] 6.0 K/CMM (04/21/17 8:43 AM) Lymphocytes # [1.0-5.5 K/CMM] 2.4 K/CMM (04/21/17 8:43 AM) Monocytes # [0.0-0.8 K/CMM] 0.7 K/CMM (04/21/17 8:43 AM) Eosinophils # [0.0-0.5 K/CMM] 0.1 K/CMM (04/21/17 8:43 AM) Basophils # [0.0-0.2 K/CMM] 0.0 K/CMM (04/21/17 8:43 AM) Anisocyte [None Seen] 1+ *ABN* (04/21/17 8:43 AM) Immunizations No data available for this section Procedures Procedure Date Related Diagnosis Body Site Status Cystoscopy and retrograde pyelography1 12/29/13 Completed section Completed Colonoscopy Completed 1Cystoscopy under anesthesia, right ureteroscopy, laser lithotripsy and basket extraction of stone, right retrograde pyelogram and right ureteral stent placement. Social History Social History Type Response Smoking Status Never smoker; Ready to change: No; Concerns about tobacco use in household: No; Exposure to Tobacco Smoke None; Cigarette Smoking Last 365 Days No; Reg Smoking Cessation Counseling No entered on: 04/21/17 Assessment and Plan No data available for this section
--- OUTSIDE RECORDS SUMMARY | 2018-06-11 11:01 | XMS REPORT | Summary of Care ---
:1980 Author Organization [facility] Address [address], [place] [address]- Encounter HQ Quinten_alec([facility]) [id number] Date(s): 11/11/17 - 11/13/17 [facility] [address] [place] [address]- Encounter Diagnosis Other postprocedural complications and disorders of digestive system (Final) - Ileus, unspecified (Final) - Diaphragmatic hernia without obstruction or gangrene (Final) - Dehydration (Final) - Anemia in other chronic diseases classified elsewhere (Final) - Personal history of nicotine dependence (Final) - Discharge Disposition: Home or Self Care Attending Physician: Nolan Barcenas MD Admitting Physician: Nolan Barcenas MD Vital Signs Most recent to oldest [Reference 1 2 3 Range]: Height 160.02 cm 160.02 cm (11/11/17 8:47 PM) (11/11/17 10:06 AM) Temperature Oral [96.4-99.1 DegF] 98.4 DegF 98.8 DegF 97.5 DegF (11/13/17 3:14 PM) (11/13/17 12:48 PM) (11/13/17 8:32 AM) Blood Pressure [90-140/60-90 115/75 mmHg 112/72 mmHg 125/85 mmHg mmHg] (11/13/17 3:14 PM) (11/13/17 12:48 PM) (11/13/17 8:32 AM) Respiratory Rate [14-20 BRMIN] 16 BRMIN 16 BRMIN 16 BRMIN (11/13/17 3:14 PM) (11/13/17 12:48 PM) (11/13/17 8:32 AM) Peripheral Pulse Rate [60-100 71 bpm 75 bpm 65 bpm bpm] (11/13/17 3:14 PM) (11/13/17 12:48 PM) (11/13/17 8:32 AM) Weight 67.898 kg 67.841 kg (11/11/17 8:47 PM) (11/11/17 10:06 AM) Body Mass Index 26.52 m2 26.49 m2 (11/11/17 8:47 PM) (11/11/17 10:06 AM) Problem List Condition Effective Dates Status Health Status Informant Abdominal pain(Confirmed)1 Active Acid reflux(Confirmed) Active Hiatal hernia(Confirmed) Active Ureteric stone2 01/07/14 Active 1right side abdominal [id number] migrated from [employer] on 09/05/14. Allergies, Adverse Reactions, Alerts Substance Reaction Severity Status cephalosporins Active levofloxacin1 Active Ceftin rapid heart beat Active rash Rocephin rapid heart beat Active rash Levaquin rapid heart beat Active rash NKFA Active 1Data migrated from [employer] on 08/07/14. Originally documented as LEVAQUIN. Medications acetaminophen 650 mg, 2 tab, Route: PO, Drug form: TAB, Q4H, Dosing Weight 67.841, kg, PRN Pain 1-3/Temp > 100.4 F, Start date: 11/11/17 15:47:00 CDT, Duration: 30 day , Stop date: 12/11/17 15:46:00 CDT Notes: Do not exceed 4 gm/day. (Same as: Tylenol) Start Date: 11/11/17 Stop Date: 11/13/17 Status: Discontinuedmorphine Sulfate 2 mg, 1 mL, Route: IVP, Drug form: SOLN, Q4H, Dosing Weight 67.841, kg, PRN Pain Score 7-10, Start date: 11/11/17 15:47:00 CDT, Duration: 30 day, Stop date : 12/11/17 15:46:00 CDT Start Date: 11/11/17 Stop Date: 11/13/17 Status: Discontinuedmorphine Sulfate 4 mg, Route: IVP, ONCE, Dosing Weight 67.841, kg, Priority: STAT, Start date: 10:47:00 CDT,Stop date: 11/11/17 10:47:00 CDT Start Date: 11/11/17 Stop Date: 11/11/17 Status: Completedmorphine Sulfate 4 mg, Route: IVP, ONCE, Dosing Weight 67.841, kg, Priority: STAT, Start date: 12:28:00 CDT,Stop date: 11/11/17 12:28:00 CDT Start Date: 11/11/17 Stop Date: 11/11/17 Status: CompletedNorco 5/325 oral tablet 1 tab, Route: PO, Drug Form: TAB, Dosing Weight 67.898, kg, Q6H, PRN Pain Score 1-3, Start date: 11/12/17 20:02:00 CDT, Duration: 30 day, Stop date: 12/12/17 20 :01:00 CDT Notes: (Same as: [place] 325/5) Do not exceed 4gm/day of acetaminophen. Start Date: 11/12/17 Stop Date: 11/13/17 Status: DiscontinuedNorco 5/325 oral tablet 1 tab, PO, Q6H, PRN Pain Score 1-3, 0 Refill(s) Start Date: 11/13/17 Status: OrderedOmnipaque 350 injectable solution 100 mL, Route: IVP, Dosing Weight 67.841, kg, ONCALL, GFR > 45 mL/min, STAT, Start date: 11/11/1810:18:00 CDT, Duration: 1 doses or times Start Date: 11/11/17 Stop Date: 11/11/17 Status: Completedondansetron 4 mg, 2 mL, Route: IVP, Drug form: INJ, Q6H, Dosing Weight 67.841, kg, PRN Nausea & Vomiting, Start date: 11/11/17 15:47:00 CDT, Duration: 30 day, Stop date: 12/11/17 15:46:00 CDT Notes: (Same as: Shikha) MEDICATION WASTE Product Size: 4 mgProduct Wasted: ___ mg Start Date: 11/11/17 Stop Date: 11/13/17 Status: DiscontinuedSaline Flush 0.9% 10 ml, Route: IVP, Drug Form: INJ, Dosing Weight 67.841, kg, PRN, PRN Line Flush , Start date: 11/11/17 15:47:00 CDT, Duration: 30 day, Stop date: 12/11/17 15:46 :00 CDT Notes: (Same as: BD Posiflush) Start Date: 11/11/17 Stop Date: 11/13/17 Status: DiscontinuedSaline Flush 0.9% 10 mL, Route: IVP, Drug Form: INJ, Dosing Weight 67.841, kg, PRN, PRN Line Flush , Start date: 11/11/17 10:14:00 CDT, Duration: 30 day, Stop date: 12/11/17 10:13 :00 CDT Notes: (Same as: BD Posiflush) Start Date: 11/11/17 Stop Date: 11/13/17 Status: DiscontinuedSodium Chloride 0.9% (Bolus) IV 1,000 mL, Infuse Over: 1 hr, Route: IV, ONCE, Priority: STAT, Dosing Weight 67.841 kg, Start date: 11/11/17 10:47:00 CDT, Stop date: 11/11/17 10:47:00 CDT Start Date: 11/11/17 Stop Date: 11/11/17 Status: CompletedSodium Chloride 0.9% IV 1,000 mL 1,000 mL, Rate: 100 ml/hr, Infuse over: 10 hr, Route: IV, Dosing Weight 67.841 kg, Total Volume: 1,000, Start date: 11/11/17 15:47:00 CDT, Duration: 30 day, Stop date: 12/11/17 15:46:00 CDT, 1.76, m2 Start Date: 11/11/17 Stop Date: 11/12/17 Status: DiscontinuedZofran 4 mg, Route: IVP, Drug form: INJ, ONCE, Dosing Weight 67.841, kg, Priority: STAT , Start date: 11/11/17 10:47:00 CDT, Stop date: 11/11/17 10:47:00 CDT Start Date: 11/11/17 Stop Date: 11/11/17 Status: CompletedZofran 4 mg oral tablet 4 mg=1 tab, PO, Q8H, PRN Nausea, # 15 tab, 0 Refill(s) Start Date: 11/13/17 Stop Date: 11/18/17 Status: Ordered Results ELECTROLYTES Most recent to oldest [Reference Range]: 1 2 Sodium Lvl [135-145 mEq/L] 141 mEq/L 138 mEq/L (11/12/17 4:26 AM) (11/11/17 10:34 AM) Potassium Lvl [3.5-5.1 mEq/L] 3.7 mEq/L 3.6 mEq/L (11/12/17 4:26 AM) (11/11/17 10:34 AM) Chloride Lvl [95-109 mEq/L] 109 mEq/L 104 mEq/L (11/12/17 4:26 AM) (11/11/17 10:34 AM) CO2 [24-32 mEq/L] 25 mEq/L 28 mEq/L (11/12/17 4:26 AM) (11/11/17 10:34 AM) AGAP [10.0-20.0 mEq/L] 10.7 mEq/L 9.6 mEq/L (11/12/17 4:26 AM) *LOW* (11/11/17 10:34 AM) CHEM PANEL Most recent to oldest [Reference Range]: 1 2 Creatinine Lvl [0.50-1.40 mg/dL] 0.45 mg/dL 0.61 mg/dL *LOW* (11/11/17 10:34 AM) (11/12/17 4:26 AM) eGFR 128 mL/min/1.73m2 1 115 mL/min/1.73m2 2 *NA* *NA* (11/12/17 4:26 AM) (11/11/17 10:34 AM) BUN [7-22 mg/dL] 9 mg/dL 8 mg/dL (11/12/17 4:26 AM) (11/11/17 10:34 AM) B/C Ratio [6-25] 13 (11/11/17 10:34 AM) Glucose Lvl [70-99 mg/dL] 81 mg/dL 85 mg/dL (11/12/17 4:26 AM) (11/11/17 10:34 AM) Total Protein [6.4-8.4 g/dL] 7.7 g/dL (11/11/17 10:34 AM) Albumin Lvl [3.5-5.0 g/dL] 3.9 g/dL (11/11/17 10:34 AM) Globulin [2.7-4.2 g/dL] 3.8 g/dL (11/11/17 10:34 AM) A/G Ratio [0.7-1.6] 1.0 (11/11/17 10:34 AM) Calcium Lvl [8.5-10.5 mg/dL] 8.2 mg/dL 8.8 mg/dL *LOW* (11/11/17 10:34 AM) (11/12/17 4:26 AM) ALT [0-65 unit/L] 33 unit/L (11/11/17 10:34 AM) AST [0-37 unit/L] 14 unit/L (11/11/17 10:34 AM) Alk Phos [39-136 unit/L] 81 unit/L (11/11/17 10:34 AM) Bili Total [0.2-1.3 mg/dL] 0.3 mg/dL (11/11/17 10:34 AM) Lipase Lvl [73-393 unit/L] 80 unit/L (11/11/17 10:34 AM) Lactic Acid Lvl [0.5-2.2 mMol/L] 1.1 mMol/L (11/11/17 10:34 AM) 1Result Comment: The eGFR is calculated [...] eGFR should be multiplied by the estimated BMI.2Result Comment: The eGFR is calculated using the CKD-EPI formula. In most young, healthy individualsthe eGFR will be >90 mL/min/1.73m2. [...] eGFR should be multiplied by the estimated BMI.CARDIAC ENZYMES Most recent to oldest [Reference Range]: 1 2 Troponin-I [0.00-0.40 ng/mL] <0.02 ng/mL (11/11/17 10:15 AM) ENDOCRINOLOGY Most recent to oldest [Reference Range]: 1 2 S Preg [Negative] Negative *NA* (11/11/17 10:34 AM) URINE AND STOOL Most recent to oldest [Reference Range]: 1 2 UA Turbidity [Clear] Clear (11/11/17 10:34 AM) UA Color [Yellow] Yellow *NA* (11/11/17 10:34 AM) UA pH [5.0-8.0] 6.0 (11/11/17 10:34 AM) UA Spec Grav [<=1.030] 1.014 (11/11/17 10:34 AM) UA Glucose [Negative mg/dL] Negative mg/dL *NA* (11/11/17 10:34 AM) UA Blood [Negative] Large *ABN* (11/11/17 10:34 AM) UA Ketones [Negative mg/dL] Negative mg/dL *NA* (11/11/17 10:34 AM) UA Protein [Negative mg/dL] Negative mg/dL (11/11/17 10:34 AM) UA Urobilinogen [0.1-1.0 mg/dL] <=1.0 mg/dL *NA* (11/11/17 10:34 AM) UA Bili [Negative] Negative *NA* (11/11/17 10:34 AM) UA Leuk Est [Negative] Negative (11/11/17 10:34 AM) UA Nitrite [Negative] Negative (11/11/17 10:34 AM) UA WBC [0-5 /HPF] 1 /HPF (11/11/17 10:34 AM) UA RBC [0-2 /HPF] 25 /HPF *HI* (11/11/17 10:34 AM) UA Sq Epi [Few /LPF] Moderate /LPF *ABN* (11/11/17 10:34 AM) UA Mucus [None Seen /LPF] Few /LPF *NA* (11/11/17 10:34 AM) UA Trans Epi [<=0 /LPF] 6 /LPF *HI* (11/11/17 10:34 AM) HEMATOLOGY Most recent to oldest [Reference Range]: 1 2 WBC [3.7-10.4 K/CMM] 8.5 K/CMM 16.1 K/CMM (11/12/17 4:26 AM) *HI* (11/11/17 10:34 AM) RBC [4.20-5.40 M/CMM] 4.13 M/CMM 4.79 M/CMM *LOW* (11/11/17 10:34 AM) (11/12/17 4:26 AM) Hgb [12.0-16.0 g/dL] 8.7 g/dL 10.3 g/dL *LOW* *LOW* (11/12/17 4:26 AM) (11/11/17 10:34 AM) Hct [36.0-48.0 %] 29.0 % 33.8 % *LOW* *LOW* (11/12/17 4:26 AM) (11/11/17 10:34 AM) MCV [80.0-98.0 fL] 70.2 fL 70.7 fL *LOW* *LOW* (11/12/17 4:26 AM) (11/11/17 10:34 AM) MCH [27.0-31.0 pg] 21.2 pg 21.4 pg *LOW* *LOW* (11/12/17 4:26 AM) (11/11/17 10:34 AM) MCHC [32.0-36.0 g/dL] 30.1 g/dL 30.3 g/dL *LOW* *LOW* (11/12/17 4:26 AM) (11/11/17 10:34 AM) RDW [11.5-14.5 %] 17.5 % 17.4 % *HI* *HI* (11/12/17 4:26 AM) (11/11/17 10:34 AM) MPV [7.4-10.4 fL] 7.3 fL 7.7 fL *LOW* (11/11/17 10:34 AM) (11/12/17 4:26 AM) Platelet [133-450 K/CMM] 391 K/CMM 479 K/CMM (11/12/17 4:26 AM) *HI* (11/11/17 10:34 AM) Segs [45.0-75.0 %] 63.2 % 83.7 % (11/12/17 4:26 AM) *HI* (11/11/17 10:34 AM) Lymphocytes [20.0-40.0 %] 25.3 % 9.3 % (11/12/17 4:26 AM) *LOW* (11/11/17 10:34 AM) Monocytes [2.0-12.0 %] 9.1 % 6.0 % (11/12/17 4:26 AM) (11/11/17 10:34 AM) Eosinophils [0.0-4.0 %] 2.2 % 1.0 % (11/12/17 4:26 AM) (11/11/17 10:34 AM) Basophils [0.0-1.0 %] 0.2 % 0.0 % (11/12/17 4:26 AM) (11/11/17 10:34 AM) Neutrophils # [1.5-8.1 K/CMM] 5.4 K/CMM 13.5 K/CMM (11/12/17 4:26 AM) *HI* (11/11/17 10:34 AM) Lymphocytes # [1.0-5.5 K/CMM] 2.1 K/CMM 1.5 K/CMM (11/12/17 4:26 AM) (11/11/17 10:34 AM) Monocytes # [0.0-0.8 K/CMM] 0.8 K/CMM 1.0 K/CMM (11/12/17 4:26 AM) *HI* (11/11/17 10:34 AM) Eosinophils # [0.0-0.5 K/CMM] 0.2 K/CMM 0.2 K/CMM (11/12/17 4:26 AM) (11/11/17 10:34 AM) Basophils # [0.0-0.2 K/CMM] 0.0 K/CMM 0.0 K/CMM (11/12/17 4:26 AM) (11/11/17 10:34 AM) Anisocyte [None Seen] 1+ *ABN* (11/11/17 10:34 AM) Hypochrom [None Seen] 1+ 1+ (11/12/17 4:26 AM) (11/11/17 10:34 AM) Microcyte [None Seen] 1+ 1+ *ABN* *ABN* (11/12/17 4:26 AM) (11/11/17 10:34 AM) PT [12.0-14.7 seconds] 13.2 seconds (11/11/17 10:34 AM) INR [0.85-1.17] 1.00 (11/11/17 10:34 AM) PTT [22.9-35.8 seconds] 30.7 seconds (11/11/17 10:34 AM) Immunizations No data available for this section Procedures Procedure Date Related Diagnosis Body Site Status Esophagogastroduodenoscopy 09/07/17 Completed Cystoscopy and retrograde pyelography1 12/29/13 Completed section 05/22/13 Completed Colonoscopy 04/09/12 Completed Cochleostomy Completed 1Cystoscopy under anesthesia, right ureteroscopy, laser lithotripsy and basket extraction of stone, right retrograde pyelogram and right ureteral stent placement. Social History Social History Type Response Substance Abuse Use: None. Exercise Exercise duration: 60. Exercise frequency: 3-4 times/week. Exercise type: Weight lifting.1 Employment/School Status: Unemployed. Alcohol Current, Type Wine. Frequency: 1-2 times per month. Smoking Status Former smoker; Previous treatment: None; Ready to change: No; Concerns about tobacco use in household: No; Exposure to Tobacco Smoke None; Cigarette Smoking Last 365 Days No; Reg Smoking Cessation Counseling No; Tob acco use per day: 6; Number of years: 5; Other Tobacco Frequency quit 2012; entered on: 11/11/17 1treadmill Assessment and Plan Extracted from: Title: History and Physical Author: Nolan aBrcenas MD Date: 11/11/17 1. Intractable abdominal pain,multifactorial. Patient has been constipated for the past 5 days. X-ray showing significant dilated bowel loops. Bowel series ordered to rule out bowel obstructio n. Continue n.p.o. status andsupportive care. Pain control. Surgery consultation. 2. Intractable nausea and vomiting, secondary to possiblepostop ileus versus bowel obstruction. Continue n.p.o. for now. Zofran as needed. 3. Hiatal hernia, status post a Florencia fundoplication . Continue supportive care and pain control. N.p.o. overnight until surgical evaluation likely reactive secondary to dehydration. Patient has been 4. Leukocytosis, nauseated and vomited multiple times. Very poor p.o. intake over the past few days. Will start IV fluids and gently hydrate. No signs of ongoing infection. There is no indication to start antibiotics at this time 5. Anemia of chronic disease.H&H appears stable. Will monitor closely 6. Question bile leak. Await on further input by surgery. Will monitor overall status overnight. 6. DVT and GI prophylaxis. Continue n.p.o. for bowel rest. Adjust pain regimen as indicated. Small bowel series and follow-up on results. if Normal may consider HIDA scan if pain still persistent. Surgery was consulted by E R physician. Will follow further recommendation.
--- OUTSIDE RECORDS SUMMARY | 2018-06-11 11:01 | XMS REPORT | Summary of Care ---
:1980 Author Organization [facility] Address [address], [place] [address]- Encounter HQ Alekntr_alec(FIN) [id number] Date(s): 11/07/17 - 11/08/17 [facility] [address] [place] [address]- Encounter Diagnosis Diaphragmatic hernia without obstruction or gangrene (Final) - 11/29/17 Gastro-esophageal reflux disease with esophagitis (Final) - Chronic cholecystitis (Final) - Discharge Disposition: Home or Self Care Attending Physician: Shane Laureano MD Admitting Physician: Shane Laureano MD Referring Physician: Shane Laureano MD Vital Signs Most recent to oldest [Reference 1 2 3 Range]: Height 160.02 cm (11/01/17 11:33 AM) Temperature Oral [96.4-99.1 98.6 DegF 98.5 DegF 98.6 DegF DegF] (11/08/17 11:31 AM) (11/08/17 7:40 AM) (11/08/17 3:16 AM) Blood Pressure [90-140/60-90 134/86 mmHg 129/87 mmHg 123/73 mmHg mmHg] (11/08/17 11:31 AM) (11/08/17 7:40 AM) (11/08/17 3:16 AM) Respiratory Rate [14-20 BRMIN] 20 BRMIN 18 BRMIN 18 BRMIN (11/08/17 11:31 AM) (11/08/17 7:40 AM) (11/08/17 3:16 AM) Peripheral Pulse Rate [60-100 76 bpm 74 bpm 78 bpm bpm] (11/08/17 11:31 AM) (11/08/17 7:40 AM) (11/08/17 3:16 AM) Weight 70.114 kg (11/07/17 6:56 AM) Body Mass Index 27.38 m2 (11/07/17 6:56 AM) Problem List Condition Effective Dates Status Health Status Informant Abdominal pain(Confirmed)1 Active Acid reflux(Confirmed) Active Hiatal hernia(Confirmed) Active Ureteric stone2 01/07/14 Active 1right side abdominal [id number] migrated from [employer] on 09/05/14. Allergies, Adverse Reactions, Alerts Substance Reaction Severity Status cephalosporins Active levofloxacin1 Active Ceftin rapid heart beat Active rash Rocephin rapid heart beat Active rash Levaquin rapid heart beat Active rash NKFA Active 1Data migrated from [employer] on 08/07/14. Originally documented as LEVAQUIN. Medications ANES fentaNYL 25 microgram, 0.5 mL, Route: IVP, Drug form: INJ, Q5Min, Dosing Weight 70.114, kg, PRN Pain Score 4-6, Priority: Routine, Start date: 11/07/17 10:43:00 CDT, Duration: 4 doses or times, Stop date: Limited # of times Notes: (Same as: Sublimaze) Preservative free. Start Date: 11/07/17 Stop Date: 11/07/17 Status: DiscontinuedANES flumazenil 0.2 mg, 2 mL, Route: IVP, Drug form: INJ, PRN, Dosing Weight 70.114, kg, PRN Benzodiazepine Reversal, Initial dose, Start date: 11/07/17 11:33:00 CDT, Duration: 30 day, Stop date: 12/07/17 11:32:00 CDT Notes: (Same as: Romazicon) Start Date: 11/07/17 Stop Date: 11/07/17 Status: DiscontinuedANES flumazenil 0.2 mg, 2 mL, Route: IVP, Drug form: INJ, PRN, Dosing Weight 70.114, kg, PRN Benzodiazepine Reversal, Initial dose, Start date: 11/07/17 10:43:00 CDT, Duration: 30 day, Stop date: 12/07/17 10:42:00 CDT Notes: (Same as: Romazicon) Start Date: 11/07/17 Stop Date: 11/07/17 Status: DiscontinuedANES HYDROmorphone 0.5 mg, 0.5 mL, Route: IVP, Drug form: INJ, Q5Min, Dosing Weight 70.114, kg, PRN Pain Score 7-10, Start date: 11/07/17 10:43:00 CDT, Duration: 4 doses or times, Stop date: Limited # of times Notes: Same as: Dilaudid Start Date: 11/07/17 Stop Date: 11/07/17 Status: DiscontinuedANES naloxone 0.4 mg, 1 mL, Route: IVP, Drug form: INJ, Q2MIN, Dosing Weight 70.114, kg, PRN Narcotic Reversal, Start date: 11/07/17 11:33:00 CDT, Duration: 8 doses or times , Stop date: Limited # of times Notes: Same as Narcan Start Date: 11/07/17 Stop Date: 11/07/17 Status: DiscontinuedANES naloxone 0.4 mg, 1 mL, Route: IVP, Drug form: INJ, Q2MIN, Dosing Weight 70.114, kg, PRN Narcotic Reversal, Start date: 11/07/17 10:43:00 CDT, Duration: 8 doses or times , Stop date: Limited # of times Notes: Same as Narcan Start Date: 11/07/17 Stop Date: 11/07/17 Status: DiscontinuedANES ondansetron 4 mg, 2 mL, Route: IVP, Drug form: INJ, ONCE, Dosing Weight 70.114, kg, PRN Nausea & Vomiting, Start date: 11/07/17 11:33:00 CDT Notes: (Same as: Shikha) MEDICATION WASTE Product Size: 4 mgProduct Wasted: ___ mg Start Date: 11/07/17 Stop Date: 11/07/17 Status: DiscontinuedANES ondansetron 4 mg, 2 mL, Route: IVP, Drug form: INJ, ONCE, Dosing Weight 70.114, kg, PRN Nausea & Vomiting, Start date: 11/07/17 10:43:00 CDT Notes: (Same as: Shikha) MEDICATION WASTE Product Size: 4 mgProduct Wasted: ___ mg Start Date: 11/07/17 Stop Date: 11/07/17 Status: DiscontinuedANES oxyCODONE 10 mg, 2 tab, Route: PO, Drug form: TAB, Q4H, Dosing Weight 70.114, kg, PRN Pain Score 7-10, Start date: 11/07/17 11:33:00 CDT, Duration: 30 day, Stop date : 12/07/17 11:32:00 CDT Notes: (Same as: Roxicodone) Start Date: 11/07/17 Stop Date: 11/07/17 Status: DiscontinuedANES oxyCODONE 5 mg, 1 tab, Route: PO, Drug form: TAB, Q4H, Dosing Weight 70.114, kg, PRN Pain Score 4-6, Start date: 11/07/17 11:33:00 CDT, Duration: 30 day, Stop date: 12/07 11:32:00 CDT Notes: (Same as: Roxicodone) Start Date: 11/07/17 Stop Date: 11/07/17 Status: DiscontinuedBactrim DS 800 mg- 160 mg oral tablet 1 tab, PO, BID, X 7 day, # 14 tab, 0 Refill(s) Start Date: 11/08/17 Stop Date: 11/13/17 Status: DiscontinuedCeleBREX 400 mg, Route: PO, Drug form: CAP, PRE OP, Dosing Weight 68.182, kg, Start date : 11/07/17 7:00:00 CDT, Duration: 30 day, Stop date: 12/07/17 6:59:00 CDT Start Date: 11/07/17 Stop Date: 11/07/17 Status: CompletedChloraseptic 1.4% spray 1 spray, Route: TOP, Daily, Drug form: SPRY, PRN Sore Throat, Start date: 9:50:00 CDT, Duration: 30 day, Stop date: 12/07/17 9:49:00 CDT Notes: Chloraseptic [place](Same as: Chloraseptic, Sore Throat [place])WASTE: F/P - Black; E - MunicipalTrash Bin Start Date: 11/07/17 Stop Date: 11/08/17 Status: DiscontinuedCleocin HCl 900 mg, 50 mL, Route: IVPB, Drug form: INJ, PRE OP, Start date: 11/07/17 5:00: 00 CDT, Duration: 30 day, Stop date: 12/07/17 4:59:00 CDT, ABX Indication: Surgical Prophylaxis Start Date: 11/07/17 Stop Date: 11/07/17 Status: TifhbmitcO8T 1/2NS + KCL 20mEq/L 1000ml (Premix) 1,000 mL 1,000 mL, Rate: 125 ml/hr, Infuse over: 8 hr, Route: IV, Dosing Weight 70.114 kg , Total Volume: 1,000, Start date: 11/07/17 9:50:00 CDT, Duration: 30 day, Stop date: 12/07/17 9:49:00 CDT, 1.79, m2 Notes: PREMIX IV - Do Not AlterWASTE: F/P - Sink; E - Municipal Trash Bin Start Date: 11/07/17 Stop Date: 11/08/17 Status: Discontinueddexamethasone (ANES) Route: IV, Drug form: INJ, ONCE, Stop date: 11/07/17 9:08:00 CDT Start Date: 11/07/17 Stop Date: 11/07/17 Status: Completedfamotidine 40 mg, 2 tab, Route: PO, Drug form: TAB, PRE OP, Dosing Weight 68.182, kg, Start date: 11/07/17 7:00:00 CDT, Duration: 1 doses or times Notes: (Same as: Pepcid) Start Date: 11/07/17 Stop Date: 11/07/17 Status: CompletedfentaNYL (ANES) Route: IV, Drug form: INJ, ONCE, Stop date: 11/07/17 9:03:00 CDT Start Date: 11/07/17 Stop Date: 11/07/17 Status: Completedgabapentin 300 mg oral capsule 300 mg, 1 cap, Route: PO, PRE OP, Dosing Weight 68.182, kg, Start date: 7:00:00 CDT, Duration: 30 day, Stop date: 12/07/17 6:59:00 CDT Start Date: 11/07/17 Stop Date: 11/07/17 Status: Completedglycopyrrolate (ANES) Route: IV, Drug form: INJ, ONCE, Stop date: 11/07/17 10:10:00 CDT Start Date: 11/07/17 Stop Date: 11/07/17 Status: Completedhydromorphone (ANES) Route: IV, Drug form: INJ, ONCE, Stop date: 11/07/17 9:28:00 CDT Start Date: 11/07/17 Stop Date: 11/07/17 Status: CompletedketOROLAC 30 mg/mL injectable solution 30 mg, 1 mL, Route: IVP, Drug form: INJ, Q6H, Dosing Weight 70.114, kg, Start date: 11/07/17 12:00:00 CDT, Duration: 4 day, Stop date: 11/11/17 6:00:00 CDT Notes: (Same as:Toradol) IV bolus must be given >15 seconds. Give IM administration slowly and deeply into the muscle.Not for use > 4 days MEDICATION WASTE Product Size: 30 mgProduct Wasted: ___ mg Start Date: 11/07/17 Stop Date: 11/08/17 Status: DiscontinuedLactated Ringers Injection IV (ANES) 1000 mL Route: IV, Total Volume: 1,000, Start date: 11/07/17 8:10:00 CDT, Stop date: 04/26 9:10:00 CDT Start Date: 11/07/17 Stop Date: 11/07/17 Status: CompletedLactated Ringers Injection IV 1,000 mL 1,000 mL, Rate: 25 ml/hr, Infuse over: 40 hr, Route: IV, Dosing Weight 68.182 kg , Total Volume: 1,000, Start date: 11/07/17 6:12:00 CDT, Duration: 30 day, Stop date: 12/07/17 6:11:00 CDT, 1.76, m2 Start Date: 11/07/17 Stop Date: 11/07/17 Status: Discontinuedlidocaine (ANES) Route: IV, Drug form: INJ, ONCE, Stop date: 11/07/17 9:03:00 CDT Start Date: 11/07/17 Stop Date: 11/07/17 Status: Completedlidocaine 1% 0.5 mL, Route: INTRADERM, Drug Form: INJ, Dosing Weight 68.182, kg, ONCALL, Start date: 11/07/17 7:00:00 CDT, Duration: 1 doses or times Notes: Preservative free. (Same as: Xylocaine MPF) Start Date: 11/07/17 Stop Date: 11/07/17 Status: DiscontinuedLovenox 40 mg, 0.4 mL, Route: SUB-Q, Drug form: INJ, Daily, Dosing Weight 70.114, kg, Start date: 11/08/17 9:00:00 CDT, Duration: 30 day, Stop date: 12/07/17 9:00:00 CDT Notes: (Same as: Lovenox) Start Date: 11/08/17 Stop Date: 11/08/17 Status: Discontinuedmetoclopramide (ANES) Route: IV, Drug form: INJ, ONCE, Stop date: 11/07/17 9:03:00 CDT Start Date: 11/07/17 Stop Date: 11/07/17 Status: Completedmetoprolol (ANES) Route: IV, Drug form: INJ, ONCE, Stop date: 11/07/17 9:38:00 CDT Start Date: 11/07/17 Stop Date: 11/07/17 Status: Completedmidazolam (ANES) Route: IV, Drug form: SOLN, ONCE, Stop date: 11/07/17 9:03:00 CDT Start Date: 11/07/17 Stop Date: 11/07/17 Status: Completedmorphine Sulfate 4 mg, 1 mL, Route: IVP, Drug form: SOLN, Q4H, Dosing Weight 70.114, kg, PRN Pain Score 7-10, Start date: 11/07/17 9:51:00 CDT, Duration: 30 day, Stop date: 12/07/17 9:50:00 CDT Notes: (Same as:MORPhine Sulfate) Start Date: 11/07/17 Stop Date: 11/08/17 Status: Discontinuedneostigmine (ANES) Route: IV, Drug form: INJ, ONCE, Stop date: 11/07/17 10:10:00 CDT Start Date: 11/07/17 Stop Date: 11/07/17 Status: CompletedNorco 5/325 oral tablet 1 tab, Route: PO, Drug Form: TAB, Dosing Weight 70.114, kg, Q6H, PRN Pain Score 1-3, Start date: 11/07/17 9:51:00 CDT, Duration: 30 day, Stop date: 12/07/17 9: 50:00 CDT Notes: (Same as: [place] 325/5) Do not exceed 4gm/day of acetaminophen. Start Date: 11/07/17 Stop Date: 11/08/17 Status: Discontinuedondansetron (ANES) Route: IV, Drug form: INJ, ONCE, Stop date: 11/07/17 10:10:00 CDT Start Date: 11/07/17 Stop Date: 11/07/17 Status: Completedpropofol (ANES) Route: IV, Drug form: INJ, ONCE, Stop date: 11/07/17 9:03:00 CDT Start Date: 11/07/17 Stop Date: 11/07/17 Status: Completedrocuronium (ANES) Route: IV, Drug form: INJ, ONCE, Stop date: 11/07/17 9:03:00 CDT Start Date: 11/07/17 Stop Date: 11/07/17 Status: CompletedSodium Chloride 0.9% IV (ANES) 50 mL + clindamycin (ANES) 150 mg Route: IV, Drug form: INJ, Start date: 11/07/17 8:27:00 CDT, Stop date: 9:27:00 CDT Start Date: 11/07/17 Stop Date: 11/07/17 Status: CompletedTylenol 1,000 mg, Route: PO, PRE OP, Dosing Weight 68.182, kg, Start date: 11/07/17 7:00 :00 CDT, Duration: 30 day, Stop date: 12/07/17 6:59:00 CDT Start Date: 11/07/17 Stop Date: 11/07/17 Status: CompletedTylenol with Codeine #3 oral tablet 1 tab, PO, Q4H, PRN Pain, X 7 day, # 30 tab, 0 Refill(s) Start Date: 11/08/17 Stop Date: 11/13/17 Status: DiscontinuedZantac 75 oral tablet 75 mg=1 tab, PO, Daily, 0 Refill(s) Start Date: 11/01/17 Stop Date: 11/07/17 Status: DeletedZofran 4 mg, 2 mL, Route: IVP, Drug form: INJ, Q8H, Dosing Weight 70.114, kg, PRN Nausea, Start date: 11/07/17 9:50:00 CDT, Duration: 30 day, Stop date: 12/07/17 9:49:00 CDT Notes: (Same as: Zofran) MEDICATION WASTE Product Size: 4 mgProduct Wasted: ___ mg Start Date: 11/07/17 Stop Date: 11/08/17 Status: Discontinued Results ELECTROLYTES Most recent to oldest [Reference Range]: 1 2 Sodium Lvl [135-145 mEq/L] 141 mEq/L (11/08/17 4:58 AM) Potassium Lvl [3.5-5.1 mEq/L] 3.6 mEq/L (11/08/17 4:58 AM) Chloride Lvl [95-109 mEq/L] 108 mEq/L (11/08/17 4:58 AM) CO2 [24-32 mEq/L] 25 mEq/L (11/08/17 4:58 AM) AGAP [10.0-20.0 mEq/L] 11.6 mEq/L (11/08/17 4:58 AM) CHEM PANEL Most recent to oldest [Reference Range]: 1 2 Creatinine Lvl [0.50-1.40 mg/dL] 0.52 mg/dL (11/08/17 4:58 AM) eGFR 122 mL/min/1.73m2 1 *NA* (11/08/17 4:58 AM) BUN [7-22 mg/dL] 6 mg/dL *LOW* (11/08/17 4:58 AM) Glucose Lvl [70-99 mg/dL] 84 mg/dL (11/08/17 4:58 AM) Calcium Lvl [8.5-10.5 mg/dL] 8.2 mg/dL *LOW* (11/08/17 4:58 AM) 1Result Comment: The eGFR is calculated [...] should be multiplied by the estimated BMI.URINE CHEM Most recent to oldest [Reference Range]: 1 2 U Preg [Negative] Negative (11/07/17 6:13 AM) HEMATOLOGY Most recent to oldest [Reference Range]: 1 2 WBC [3.7-10.4 K/CMM] 14.6 K/CMM 9.6 K/CMM *HI* (11/01/17 12:12 PM) (11/08/17 4:58 AM) RBC [4.20-5.40 M/CMM] 4.17 M/CMM 4.74 M/CMM *LOW* (11/01/17 12:12 PM) (11/08/17 4:58 AM) Hgb [12.0-16.0 g/dL] 8.7 g/dL 10.0 g/dL *LOW* *LOW* (11/08/17 4:58 AM) (11/01/17 12:12 PM) Hct [36.0-48.0 %] 28.7 % 32.8 % *LOW* *LOW* (11/08/17 4:58 AM) (11/01/17 12:12 PM) MCV [80.0-98.0 fL] 68.8 fL 69.1 fL *LOW* *LOW* (11/08/17 4:58 AM) (11/01/17 12:12 PM) MCH [27.0-31.0 pg] 20.9 pg 21.2 pg *LOW* *LOW* (11/08/17 4:58 AM) (11/01/17 12:12 PM) MCHC [32.0-36.0 g/dL] 30.4 g/dL 30.6 g/dL *LOW* *LOW* (11/08/17 4:58 AM) (11/01/17 12:12 PM) RDW [11.5-14.5 %] 17.6 % 17.5 % *HI* *HI* (11/08/17 4:58 AM) (11/01/17 12:12 PM) MPV [7.4-10.4 fL] 7.7 fL 7.7 fL (11/08/17 4:58 AM) (11/01/17 12:12 PM) Platelet [133-450 K/CMM] 381 K/CMM 461 K/CMM (11/08/17 4:58 AM) *HI* (11/01/17 12:12 PM) Segs [45.0-75.0 %] 73.1 % 61.2 % (11/08/17 4:58 AM) (11/01/17 12:12 PM) Lymphocytes [20.0-40.0 %] 17.2 % 29.7 % *LOW* (11/01/17 12:12 PM) (11/08/17 4:58 AM) Monocytes [2.0-12.0 %] 9.3 % 7.4 % (11/08/17 4:58 AM) (11/01/17 12:12 PM) Eosinophils [0.0-4.0 %] 0.3 % 1.2 % (11/08/17 4:58 AM) (11/01/17 12:12 PM) Basophils [0.0-1.0 %] 0.1 % 0.5 % (11/08/17 4:58 AM) (11/01/17 12:12 PM) Neutrophils # [1.5-8.1 K/CMM] 10.7 K/CMM 5.9 K/CMM *HI* (11/01/17 12:12 PM) (11/08/17 4:58 AM) Lymphocytes # [1.0-5.5 K/CMM] 2.5 K/CMM 2.8 K/CMM (11/08/17 4:58 AM) (11/01/17 12:12 PM) Monocytes # [0.0-0.8 K/CMM] 1.4 K/CMM 0.7 K/CMM *HI* (11/01/17 12:12 PM) (11/08/17 4:58 AM) Eosinophils # [0.0-0.5 K/CMM] 0.0 K/CMM 0.1 K/CMM (11/08/17 4:58 AM) (11/01/17 12:12 PM) Basophils # [0.0-0.2 K/CMM] 0.0 K/CMM 0.1 K/CMM (11/08/17 4:58 AM) (11/01/17 12:12 PM) Polychrom 1+ *NA* (11/01/17 12:12 PM) Hypochrom [None Seen] 1+ (11/01/17 12:12 PM) Microcyte [None Seen] 1+ *ABN* (11/01/17 12:12 PM) Stomatocyte Slight *NA* (11/01/17 12:12 PM) Plt Morph Normal (11/01/17 12:12 PM) Immunizations No data available for this section [...] 1treadmill Assessment and Plan Extracted from: Title: Anesthesia APMS Progress Note* Author: Caitlyn Melendez RN Date: 11/08/17 Postoperative Information Surgery Done Procedure Location: Abdomen. Chief Complaint Continuing surgical site pain management Inpatient information Interaction with patient. Observation. Information from RN. Progress Note Date and Time of Visit: 11/08/2017 08:35 Post OP Day #: 1. Peripheral Nerve Block Nerve Block Site: BILATERAL RECTUS SHEATH AND BILATERAL SUBCOSTAL-EXPAREL: single shot. Current Status Assessment Visual Analog Scale for Pain (VAS 0-10): At Rest: 9, With Activity: 10. Pump Use: None. Level of Sedation: Awake/Alert. Activity: Ambulating. patient is due for pain medication. patient was up walking from restroom. Motor Block Residual Motor Weakness: No. Numbness Residual Sensory Numbness: No. 1st PO Analgesic see jun. Site Assessment Non-tender, no redness, minimal swelling or bruising, No exudates, drainage, or bleeding. Side Effects None. Plan APWV Plan Discharge from [facility] care: Analgesics per Primary Service. Caitlyn Campos RN , am scribing for and in the presence of Dr. Estephania Chamberlain. Addendum by Edilberto Chamberlain MD on I have seen and examined Ms. Dawn and 11/08/2017 20:36 attest that this note is accurate and complete.
--- OUTSIDE RECORDS SUMMARY | 2018-06-11 11:02 | XMS REPORT | Summary of Care ---
:1980 Author Organization [facility] Address [address], [place] [address]- Encounter HQ Encntr_alias(FIN) [id number] Date(s): 04/21/17 - 04/21/17 [facility] [address] [place] [address]- Encounter Diagnosis Malaise (Discharge Diagnosis) - 04/21/17 Other malaise (Final) - 04/30/17 Discharge Disposition: Home or Self Care Attending [...] Ureteric stone1 01/07/14 Active 1Data migrated from [employer] on 09/05/14. Allergies, Adverse Reactions, Alerts Substance Reaction Severity Status levofloxacin1 Active Levaquin rapid heart beat Active rash NKFA Active 1Data migrated from [facility] on 08/07/14. Originally documented as LEVAQUIN. Medications Benadryl 12.5 mg, 0.25 mL, Route: IVP, Drug form: INJ, ONCE, Dosing Weight 70.455, kg, Priority: STAT, Start date: 04/21/17 8:03:00 BIOLOGICAL AIDE, Stop date: 04/21/17 8:03:00 BIOLOGICAL AIDE Notes: (Same as: Benadryl) Start Date: 04/21/17 Stop Date: 04/21/17 Status: CompletedDiflucan 150 mg oral tablet 150 mg=1 tab, PO, ONCE, # 1 tab, 0 Refill(s) Start Date: 04/21/17 Status: OrderedRocephin + sterile water 10 mL 1 gm, Route: IVPB, ONCE, Dosing Weight 70.455, kg, Priority: STAT, Start date: 04/21/17 8:03:00 BIOLOGICAL AIDE,Stop date: 04/21/17 8:03:00 BIOLOGICAL AIDE, ABX Indication: Urinary Tract Infection Notes: (Same As: Rocephin).Use with 100 mL NS and infuse over 30 min MEDICATION WASTE Product Size: 1000 mgProduct Wasted: ___ mg Start Date: 04/21/17 Stop Date: 04/21/17 Status: CompletedSaline Flush 0.9% 10 mL, Route: IVP, Drug Form: INJ, Dosing Weight 70.455, kg, PRN, PRN Line Flush , Start date: 04/21/17 8:01:00 BIOLOGICAL AIDE, Duration: 30 day, Stop date: 05/21/17 8:00: 00 BIOLOGICAL AIDE Notes: (Same as: BD Posiflush) Start Date: 04/21/17 Stop Date: 04/21/17 Status: DiscontinuedSodium Chloride 0.9% (Bolus) IV 1,000 mL, 1000 ml/hr, Infuse Over: 1 hr, Route: IV, 1,000, Drug form: INJ, ONCE , Priority: STAT, Dosing Weight 70.455 kg, Start date: 04/21/17 8:01:00 BIOLOGICAL AIDE, Stop date: 04/21/17 8:01:00 BIOLOGICAL AIDE Start Date: 04/21/17 Stop Date: 04/21/17 Status: [...] %] 19.3 % *HI* (04/21/17 8:43 AM) MPV [7.4-10.4 fL] 7.4 fL (04/21/17 8:43 AM) Platelet [133-450 K/CMM] 407 K/CMM (04/21/17 8:43 AM) Segs [45.0-75.0 %] 65.3 [...]
--- OUTSIDE RECORDS SUMMARY | 2018-06-11 11:02 | XMS REPORT | Summary of Care ---
:1980 Author Organization [facility] Address [address] [place], [place] [address]- Encounter HQ Sumanr_alec(FIN) [id number] Date(s): 11/04/17 - 11/04/17 [facility] [address] [place] [address]- Encounter Diagnosis Urinary tract infection, site not specified (Final) - 11/08/17 Gastro-esophageal reflux disease without esophagitis (Final) - Personal history of nicotine dependence (Final) - Urinary tract infection (Discharge Diagnosis) - 11/04/17 Discharge Disposition: Home or Self Care Attending Physician: Jaime Tuttle MD Vital Signs Most recent to oldest [Reference Range]: 1 2 Height 160.02 cm (11/04/17 2:18 PM) Temperature Oral [96.4-99.1 DegF] 99.1 DegF 98 DegF (11/04/17 4:18 PM) (11/04/17 2:18 PM) Blood Pressure [90-140/60-90 mmHg] 137/80 mmHg 142/91 mmHg (11/04/17 4:18 PM) *HI* (11/04/17 2:18 PM) Respiratory Rate [14-20 BRMIN] 18 BRMIN 18 BRMIN (11/04/17 4:18 PM) (11/04/17 2:18 PM) Peripheral Pulse Rate [60-100 bpm] 82 bpm 75 bpm (11/04/17 4:18 PM) (11/04/17 2:18 PM) Weight 68.182 kg (11/04/17 2:18 PM) Body Mass Index 26.63 m2 (11/04/17 2:18 PM) Problem List Condition Effective Dates Status Health Status Informant Abdominal pain(Confirmed)1 Active Acid reflux(Confirmed) Active Hiatal hernia(Confirmed) Active Ureteric stone2 01/07/14 Active 1right side abdominal [id number] migrated from [employer] on 09/05/14. Allergies, Adverse Reactions, Alerts Substance Reaction Severity Status cephalosporins Active levofloxacin1 Active Ceftin rapid heart beat Active rash Rocephin rapid heart beat Active rash Levaquin rapid heart beat Active rash NKFA Active 1Data migrated from [employer] on 08/07/14. Originally documented as LEVAQUIN. Medications Bactrim DS 800 mg- 160 mg oral tablet 1 tab, Route: PO, Drug Form: TAB, Dosing Weight 68.182, kg, ONCE, STAT, Start date: 11/04/17 17:10:00 CDT, Stop date: 11/04/17 17:10:00 CDT Notes: One DS tablet=trimethoprim 160mg + sulfamethoxazole 800 mgDose based on trimethoprim component On empty stomach with a glass of water. (Same As: Bactrim DS, Septra DS) Start Date: 11/04/17 Stop Date: 11/04/17 Status: DiscontinuedCipro 500 mg, Route: PO, ONCE, Dosing Weight 68.182, kg, Priority: STAT, Start date: 11/04/17 17:13:00 CDT, Stop date: 11/04/17 17:13:00 CDT, ABX Indication: Urinary Tract Infection Start Date: 11/04/17 Stop Date: 11/04/17 Status: Completedciprofloxacin 500 mg oral tablet 500 mg=1 tab, PO, Q12H, X 7 day, # 14 tab, 0 Refill(s) Start Date: 11/04/17 Stop Date: 11/08/17 Status: DiscontinuedketOROLAC 30 mg, 1 mL, Route: IVP, Drug form: INJ, ONCE, Dosing Weight 68.182, kg, Priority: STAT, Start date:11/04/17 14:34:00 CDT, Stop date: 11/04/17 14:34:00 CDT Notes: (Same as:Toradol) IV bolus must be given >15 seconds. Give IM administration slowly and deeply into the muscle.Not for use > 4 days MEDICATION WASTE Product Size: 30 mgProduct Wasted: ___ mg Start Date: 11/04/17 Stop Date: 11/04/17 Status: CompletedSaline Flush 0.9% 10 mL, Route: IVP, Drug Form: INJ, Dosing Weight 68.182, kg, PRN, PRN Line Flush , Start date: 11/04/17 14:34:00 CDT, Duration: 30 day, Stop date: 12/04/17 14:33 :00 CDT Notes: (Same as: BD Posiflush) Start Date: 11/04/17 Stop Date: 11/04/17 Status: DiscontinuedSodium Chloride 0.9% (Bolus) IV 1,000 mL, 1000 ml/hr, Infuse Over: 1 hr, Route: IV, 1,000, Drug form: INJ, ONCE , Priority: STAT, Dosing Weight 68.182 kg, Start date: 11/04/17 14:34:00 CDT, Stop date: 11/04/17 14:34:00 CDT Start Date: 11/04/17 Stop Date: 11/04/17 Status: CompletedTylenol with Codeine #3 oral tablet 1 - 2 tab, PO, Q4H, PRN Pain, X 2 day, # 12 tab, 0 Refill(s) Start Date: 11/04/17 Stop Date: 11/06/17 Status: Completed Results ELECTROLYTES Most recent to oldest [Reference Range]: 1 Sodium Lvl [135-145 mEq/L] 138 mEq/L (11/04/17 2:56 PM) Potassium Lvl [3.5-5.1 mEq/L] 3.4 mEq/L *LOW* (11/04/17 2:56 PM) Chloride Lvl [95-109 mEq/L] 105 mEq/L (11/04/17 2:56 PM) CO2 [24-32 mEq/L] 26 mEq/L (11/04/17 2:56 PM) AGAP [10.0-20.0 mEq/L] 10.4 mEq/L (11/04/17 2:56 PM) CHEM PANEL Most recent to oldest [Reference Range]: 1 Creatinine Lvl [0.50-1.40 mg/dL] 0.77 mg/dL (11/04/17 2:56 PM) eGFR 98 mL/min/1.73m2 1 *NA* (11/04/17 2:56 PM) BUN [7-22 mg/dL] 8 mg/dL (11/04/17 2:56 PM) B/C Ratio [6-25] 10 (11/04/17 2:56 PM) Glucose Lvl [70-99 mg/dL] 77 mg/dL (11/04/17 2:56 PM) Total Protein [6.4-8.4 g/dL] 7.2 g/dL (11/04/17 2:56 PM) Albumin Lvl [3.5-5.0 g/dL] 3.6 g/dL (11/04/17 2:56 PM) Globulin [2.7-4.2 g/dL] 3.6 g/dL (11/04/17 2:56 PM) A/G Ratio [0.7-1.6] 1.0 (11/04/17 2:56 PM) Calcium Lvl [8.5-10.5 mg/dL] 8.5 mg/dL (11/04/17 2:56 PM) ALT [0-65 unit/L] 20 unit/L (11/04/17 2:56 PM) AST [0-37 unit/L] 11 unit/L (11/04/17 2:56 PM) Alk Phos [39-136 unit/L] 83 unit/L (11/04/17 2:56 PM) Bili Total [0.2-1.3 mg/dL] 0.2 mg/dL (11/04/17 2:56 PM) Lipase Lvl [73-393 unit/L] 144 unit/L (11/04/17 2:56 PM) 1Result Comment: The eGFR is calculated using [...] eGFR should be multiplied by the estimated BMI.ENDOCRINOLOGY Most recent to oldest [Reference Range]: 1 hCG Tot <1 mIU/mL *NA* (11/04/17 2:56 PM) URINE AND STOOL Most recent to oldest [Reference Range]: 1 UA Turbidity [Clear] Slight *ABN* (11/04/17 2:56 PM) UA Color [Yellow] Light Yellow *NA* (11/04/17 2:56 PM) UA pH [5.0-8.0] 5.0 (11/04/17 2:56 PM) UA Spec Grav [<=1.030] 1.020 (11/04/17 2:56 PM) UA Glucose [Negative mg/dL] Negative mg/dL *NA* (11/04/17 2:56 PM) UA Blood [Negative] Small *ABN* (11/04/17 2:56 PM) UA Ketones [Negative mg/dL] Negative mg/dL *NA* (11/04/17 2:56 PM) UA Protein [Negative mg/dL] Negative mg/dL (11/04/17 2:56 PM) UA Urobilinogen [0.1-1.0 mg/dL] <=1.0 mg/dL *NA* (11/04/17 2:56 PM) UA Bili [Negative] Negative *NA* (11/04/17 2:56 PM) UA Leuk Est [Negative] Large *ABN* (11/04/17 2:56 PM) UA Nitrite [Negative] Negative (11/04/17 2:56 PM) UA WBC [0-5 /HPF] >182 /HPF *HI* (11/04/17 2:56 PM) UA RBC [0-2 /HPF] 2 /HPF (11/04/17 2:56 PM) UA Bacteria [None Seen /HPF] Few /HPF *NA* (11/04/17 2:56 PM) UA Sq Epi [Few /LPF] Occasional /LPF *NA* (11/04/17 2:56 PM) UA Mucus [None Seen /LPF] Few /LPF *NA* (11/04/17 2:56 PM) HEMATOLOGY Most recent to oldest [Reference Range]: 1 WBC [3.7-10.4 K/CMM] 10.2 K/CMM (11/04/17 2:56 PM) RBC [4.20-5.40 M/CMM] 4.72 M/CMM (11/04/17 2:56 PM) Hgb [12.0-16.0 g/dL] 9.8 g/dL *LOW* (11/04/17 2:56 PM) Hct [36.0-48.0 %] 33.0 % *LOW* (11/04/17 2:56 PM) MCV [80.0-98.0 fL] 70.0 fL *LOW* (11/04/17 2:56 PM) MCH [27.0-31.0 pg] 20.8 pg *LOW* (11/04/17 2:56 PM) MCHC [32.0-36.0 g/dL] 29.8 g/dL *LOW* (11/04/17 2:56 PM) RDW [11.5-14.5 %] 17.6 % *HI* (11/04/17 2:56 PM) MPV [7.4-10.4 fL] 7.8 fL (11/04/17 2:56 PM) Platelet [133-450 K/CMM] 463 K/CMM *HI* (11/04/17 2:56 PM) Segs [45.0-75.0 %] 63.4 % (11/04/17 2:56 PM) Lymphocytes [20.0-40.0 %] 26.3 % (11/04/17 2:56 PM) Monocytes [2.0-12.0 %] 8.7 % (11/04/17 2:56 PM) Eosinophils [0.0-4.0 %] 1.5 % (11/04/17 2:56 PM) Basophils [0.0-1.0 %] 0.1 % (11/04/17 2:56 PM) Neutrophils # [1.5-8.1 K/CMM] 6.5 K/CMM (11/04/17 2:56 PM) Lymphocytes # [1.0-5.5 K/CMM] 2.7 K/CMM (11/04/17 2:56 PM) Monocytes # [0.0-0.8 K/CMM] 0.9 K/CMM *HI* (11/04/17 2:56 PM) Eosinophils # [0.0-0.5 K/CMM] 0.2 K/CMM (11/04/17 2:56 PM) Basophils # [0.0-0.2 K/CMM] 0.0 K/CMM (11/04/17 2:56 PM) Microbiology Reports TEST:Culture: Urine STATUS:Auth (Verified) BODY SITE: SOURCE:Urine, Clean Catch COLLECTED DATE/TIME:11/04/17 2:56 PMFINAL REPORTNo Growth Immunizations No data available for this section [...] entered on: 11/11/17 1treadmill Assessment and Plan No data available for this section
--- OUTSIDE RECORDS SUMMARY | 2018-06-11 11:02 | XMS REPORT | Summary of Care ---
:1980 Author Organization [facility] Address [address] [place], [place] [address]- Encounter HQ Encntr_alec(FIN) [id number] Date(s): 11/04/17 - 11/04/17 [facility] [address] [place] [address]- Encounter Diagnosis Urinary tract infection (Discharge Diagnosis) - 11/04/17 [...] Ureteric stone2 01/07/14 Active 1right side abdominal [id number] migrated from [employer] on 09/05/14. Allergies, Adverse Reactions, Alerts Substance Reaction Severity Status levofloxacin1 Active Ceftin rapid heart beat Active rash Rocephin rapid heart beat Active rash Levaquin rapid heart beat Active rash NKFA Active 1Data migrated from [employer] on 08/07/14. Originally documented as LEVAQUIN. Medications [...] 0 Refill(s) Start Date: 11/04/17 Stop Date: 11/11/17 Status: OrderedketOROLAC 30 mg, 1 mL, Route: IVP, Drug [...] [0.0-1.0 %] 0.1 % (11/04/17 2:56 PM) Segs-Bands # [1.5-8.1 K/CMM] 6.5 K/CMM (11/04/17 2:56 PM) Lymphocytes # [1.0-5.5 K/CMM] 2.7 K/CMM (11/04/17 2:56 PM) Monocytes # [0.0-0.8 K/CMM] 0.9 K/CMM *HI* (11/04/17 2:56 PM) Eosinophils # [0.0-0.5 K/CMM] 0.2 K/CMM (11/04/17 2:56 PM) Basophils # [0.0-0.2 K/CMM] 0.0 K/CMM (11/04/17 2:56 PM) Microbiology Reports TEST:Culture: Urine STATUS:Order in Progress BODY SITE: SOURCE:Urine, Clean Catch COLLECTED DATE/TIME:11/04/17 2:56 PMPRELIMINARY REPORTNo Growth; Holding Immunizations No data available for this section Procedures Procedure Date Related Diagnosis Body Site Status Esophagogastroduodenoscopy 09/07/17 Completed Cystoscopy and retrograde pyelography1 12/29/13 Completed section 05/22/13 Completed Colonoscopy 04/09/12 Completed 1Cystoscopy under anesthesia, right ureteroscopy, laser [...] Other Tobacco Frequency quit 2012; entered on: 11/04/17 1treadmill Assessment and Plan No data available for this section
--- OUTSIDE RECORDS SUMMARY | 2018-06-11 11:02 | XMS REPORT | Summary of Care ---
:1980 Author Encounter HQ Christie(FLAVIA) [id number] Date(s): 12/28/13 - 12/29/13 [facility] [address] Discharge Disposition: Home Physician Attending: Ronald Carlisle MD Physician Admitting: Ronald Carlisle MD Reason for Visit RENAL STONE Vital Signs Most recent to oldest 1 2 3 [Reference Range]: Height 162.56 cm (12/29/13 5:09 AM) Temperature Oral [96.4-99.1 98.1 DegF 98.7 DegF 98.6 DegF DegF] (12/29/13 3:18 PM) (12/29/13 7:37 AM) (12/29/13 5:18 AM) Systolic Blood Pressure [90-140 127 mmHg 117 mmHg 106 mmHg mmHg] (12/29/13 3:18 PM) (12/29/13 2:30 PM) (12/29/13 2:15 PM) Diastolic Blood Pressure [60-90 75 mmHg 68 mmHg 81 mmHg mmHg] (12/29/13 3:18 PM) (12/29/13 2:30 PM) (12/29/13 2:15 PM) Respiratory Rate [14-20 BRMIN] 16 BRMIN 15 BRMIN 16 BRMIN (12/29/13 3:18 PM) (12/29/13 2:30 PM) (12/29/13 2:15 PM) Peripheral Pulse Rate [60-100 76 bpm 65 bpm 81 bpm bpm] (12/29/13 3:18 PM) (12/29/13 7:37 AM) (12/29/13 5:18 AM) Weight 71.989 kg (12/29/13 5:09 AM) Body Mass Index 27.24 m2 (12/29/13 5:09 AM) Problem List No data available for this section Allergies, Adverse Reactions, Alerts Substance Reaction Severity Status Ceftin rash Active rapid heart beat Levaquin rash Active rapid heart beat NKFA Active Rocephin rash Active rapid heart beat Vicodin rash Active rapid heart beat anxiety attack Medications acetaminophen 1,000 mg, 100 mL, Route: IVPB, Drug form: INJ, ONCE, Dosing Weight 71.989, kg, PRN Pain Score 1-3, Start date: 12/29/13 12:58:00, Duration: 1 doses or times, Stop date: Limited # of times Notes: Infuse over 15 minutes Do not exceed 4gm/day of acetaminophen Start Date: 12/29/13 Stop Date: 12/29/13 Status: Discontinuedclindamycin + Sodium Chloride 0.9% IV 100 mL 900 mg, 6 mL, Route: IVPB, Drug form: INJ, ONCE, Dosing Weight 71.989, kg, Start date: 12/29/13 11:33:00, Stop date: 12/29/13 11:33:00 Notes: (Same As: Cleocin) Start Date: 12/29/13 Stop Date: 12/29/13 Status: Orderedclindamycin 300 mg oral capsule 300 mg=1 cap, PO, Q8H, # 21 cap, 0 Refill(s) Start Date: 12/29/13 Stop Date: 01/05/14 Status: OrderedCystex 32 mg-162 mg-162.5 mg oral tablet 2 tab, PO, TID, as needed for inflammation Start Date: 12/29/13 Stop Date: 12/29/13 Status: DiscontinuedFlomax 0.4 mg, 1 cap, Route: PO, Drug form: CAP, ONCE, Dosing Weight 74.091, kg, Start date: 12/29/13 3:04:00, Stop date: 12/29/13 3:04:00 Notes: (Same As: Flomax) "Do Not Crush" Start Date: 12/29/13 Stop Date: 12/29/13 Status: CompletedFlomax 0.4 mg oral capsule =1 tab, PO, Daily, # 14 tab, 0 Refill(s) Start Date: 12/29/13 Stop Date: 01/12/14 Status: Orderedflumazenil 0.2 mg, 2 mL, Route: IVP, Drug form: INJ, PRN, Dosing Weight 71.989, kg, PRN Benzodiazepine Reversal, Initial dose, Start date: 12/29/13 12:58:00, Duration: 30 day, Stop date: 01/28/14 12:57:00 Notes: (Same as: Romazicon) Start Date: 12/29/13 Stop Date: 12/29/13 Status: Discontinuedhydromorphone 0.5 mg, 0.25 mL, Route: IVP, Drug form: INJ, Q5Min, Dosing Weight 71.989, kg, PRN Pain Score 7-10, Start date: 12/29/13 12:58:00, Duration: 4 doses or times, Stop date: Limited # of times Notes: (Same as: Dilaudid) Start Date: 12/29/13 Stop Date: 12/29/13 Status: Discontinuedketorolac 30 mg, 1 mL, Route: IVP, Drug form: INJ, ONCE, Dosing Weight 74.091, kg, Priority: STAT, Start date:12/29/13 2:49:00, Stop date: 12/29/13 2:49:00 Notes: (Same as:Toradol) IV bolus must be given >15 seconds. Give IM administration slowly and deeply into the muscle. Not for use > 4 days Start Date: 12/29/13 Stop Date: 12/29/13 Status: CompletedLactated Ringers IV 1,000 mL 1,000 mL, Rate: 40 ml/hr, Infuse over: 25 hr, Route: IV, Dosing Weight 71.989 kg , Total Volume: 1,000, Start date: 12/29/13 10:41:00, Duration: 1 doses or times , Stop date: 12/30/13 11:40:00 Start Date: 12/29/13 Stop Date: 12/29/13 Status: Discontinuedmorphine Sulfate 4 mg, 2 mL, Route: IVP, Drug form: INJ, ONCE, Dosing Weight 68.295, kg, Priority : STAT, Start date: 12/29/13 0:18:00, Stop date: 12/29/13 0:18:00 Notes: (Same as:MORPhine Sulfate) Start Date: 12/29/13 Stop Date: 12/29/13 Status: Completedmorphine Sulfate 2 mg, 1 mL, Route: IVP, Drug form: INJ, Q5Min, Dosing Weight 71.989, kg, PRN Pain Score 4-6, Start date: 12/29/13 13:11:00, Duration: 5 doses or times, Stop date: Limited # of times Notes: (Same as:MORPhine Sulfate) Start Date: 12/29/13 Stop Date: 12/29/13 Status: Discontinuedmorphine Sulfate 4 mg, Route: IVP, Drug form: INJ, ONCE, Dosing Weight 74.091, kg, Priority: STAT , Start date: 12/29/13 1:37:00, Stop date: 12/29/13 1:37:00 Start Date: 12/29/13 Stop Date: 12/29/13 Status: Completedmorphine Sulfate 4 mg, 2 mL, Route: IVP, Drug form: INJ, Q3H, Dosing Weight 74.091, kg, PRN Pain Score 4-6, Start date: 12/29/13 4:22:00, Duration: 30 day, Stop date: 01/28/14 4 :21:00 Notes: (Same as:MORPhine Sulfate) Start Date: 12/29/13 Stop Date: 12/29/13 Status: Discontinuednaloxone 0.04 mg, 0.1 mL, Route: IVP, Drug form: INJ, Q2MIN, Dosing Weight 71.989, kg, PRN Narcotic Reversal,Start date: 12/29/13 12:58:00, Duration: 8 doses or times , Stop date: Limited # of times Notes: Same as Narcan Start Date: 12/29/13 Stop Date: 12/29/13 Status: DiscontinuedOmnipaque 300 100 mL, 100 ml/hr, Route: IV, Drug Form: SOLN, ONCE, Start date: 12/29/13 2:16: 00, Stop date: 12/29/13 2:16:00 Notes: (Same as:Omnipaque 300). Start Date: 12/29/13 Stop Date: 12/29/13 Status: Completedondansetron 4 mg, 2 mL, Route: IVP, Drug form: INJ, ONCE, Dosing Weight 68.295, kg, Priority : STAT, Start date: 12/29/13 0:18:00, Stop date: 12/29/13 0:18:00 Notes: (Same as: Zofran) Start Date: 12/29/13 Stop Date: 12/29/13 Status: Completedondansetron 4 mg, 2 mL, Route: IVP, Drug form: INJ, ONCE, Dosing Weight 71.989, kg, PRN Nausea & Vomiting, Start date: 12/29/13 12:58:00 Notes: (Same as: Zofran) Start Date: 12/29/13 Stop Date: 12/29/13 Status: Completedondansetron 4 mg, 2 mL, Route: IVP, Drug form: INJ, Q8H, Dosing Weight 74.091, kg, PRN Nausea & Vomiting, Start date: 12/29/13 4:22:00, Duration: 30 day, Stop date : 01/28/14 4:21:00 Notes: (Same as: Zofran) Start Date: 12/29/13 Stop Date: 12/29/13 Status: DiscontinuedSaline Flush 0.9% 10 mL, Route: IVP, Drug Form: INJ, Dosing Weight 68.295, kg, PRN, PRN Line Flush , Start date: 12/29/13 0:18:00, Duration: 30 day, Stop date: 01/28/14 0:17:00 Notes: (Same as: BD Posiflush) Start Date: 12/29/13 Stop Date: 12/29/13 Status: DiscontinuedSaline Flush 0.9% 10 ml, Route: IVP, Drug Form: INJ, Dosing Weight 74.091, kg, PRN, PRN Line Flush , Start date: 12/29/13 4:22:00, Duration: 30 day, Stop date: 01/28/14 4:21:00 Notes: (Same as: BD Posiflush) Start Date: 12/29/13 Stop Date: 12/29/13 Status: DiscontinuedSodium Chloride 0.9% (Bolus) IV 1,000 mL, 1000 ml/hr, Infuse Over: 1 hr, Route: IV, 1,000, Drug form: INJ, ONCE , Priority: STAT, Dosing Weight 68.295 kg, Start date: 12/29/13 0:18:00, Duration: 1 doses or times, Stop date: 12/29/13 0:18:00 Start Date: 12/29/13 Stop Date: 12/29/13 Status: CompletedSodium Chloride 0.9% IV 1,000 mL 1,000 mL, Rate: 125 ml/hr, Infuse over: 8 hr, Route: IV, Dosing Weight 74.091 kg , Total Volume: 1,000, Start date: 12/29/13 4:22:00, Duration: 30 day, Stop date : 01/28/14 4:21:00 Start Date: 12/29/13 Stop Date: 12/29/13 Status: DiscontinuedUltram 50 mg oral tablet 1 - 2 tabs, PO, Q4-6H, as needed for pain, # 30 tab, 0 Refill(s) Start Date: 12/29/13 Status: OrderedVESIcare 5 mg oral tablet 5 mg=1 tab, PO, Daily, # 30 tab, 0 Refill(s) Start Date: 12/29/13 Status: Ordered Results ELECTROLYTES Most recent to oldest [Reference Range]: 1 Sodium Lvl [135-145 mEq/L] 140 mEq/L (12/29/13 12:46 AM) Potassium Lvl [3.5-5.1 mEq/L] 4.3 mEq/L (12/29/13 12:46 AM) Chloride Lvl [95-109 mEq/L] 107 mEq/L (12/29/13 12:46 AM) CO2 [24-32 mEq/L] 25 mEq/L (12/29/13 12:46 AM) AGAP [10.0-20.0 mEq/L] 12.3 mEq/L (12/29/13 12:46 AM) CHEM PANEL Most recent to oldest [Reference Range]: 1 Creatinine Lvl [0.5-1.4 mg/dL] 0.8 mg/dL (12/29/13 12:46 AM) eGFR 96 mL/min/1.73m2 1 *NA* (12/29/13 12:46 AM) BUN [7-22 mg/dL] 17 mg/dL (12/29/13 12:46 AM) B/C Ratio [6-25] 21 (12/29/13 12:46 AM) Glucose Lvl [70-99 mg/dL] 90 mg/dL 2 (12/29/13 12:46 AM) Total Protein [6.4-8.4 g/dL] 7.1 g/dL (12/29/13 12:46 AM) Albumin Lvl [3.5-5.0 g/dL] 3.5 g/dL (12/29/13 12:46 AM) Globulin [2.0-4.0 g/dL] 3.6 g/dL (12/29/13 12:46 AM) A/G Ratio [0.7-1.6] 1.0 (12/29/13 12:46 AM) Calcium Lvl [8.5-10.5 mg/dL] 8.6 mg/dL (12/29/13 12:46 AM) ALT [0-65 unit/L] 23 unit/L (12/29/13 12:46 AM) AST [0-37 unit/L] 17 unit/L (12/29/13 12:46 AM) Alk Phos [39-136 unit/L] 90 unit/L (12/29/13 12:46 AM) Bili Total [0.2-1.3 mg/dL] 0.2 mg/dL (12/29/13 12:46 AM) Lipase Lvl [73-393 unit/L] 128 unit/L (12/29/13 12:46 AM) 1Result Comment: The eGFR is calculated using the CKD-EPI formula. In most young , healthy individualsthe eGFR will be >90 mL/min/1.73m2. The eGFR declines with age. An eGFR of 60-89 may be normal in some populations, particularly the elderly, for whom [...] eGFR should be multiplied by the estimated BMI.2Interpretive Data: Adult reference range values reflect the clinical guidelines of the [place] [employer].URINE CHEM Most recent to oldest [Reference Range]: 1 U Preg [Negative] Negative (12/29/13 12:39 AM) URINE AND STOOL Most recent to oldest [Reference Range]: 1 UA Turbidity [Clear] Clear (12/29/13 12:39 AM) UA Color [Yellow] Yellow *NA* (12/29/13 12:39 AM) UA pH [5.0-8.0] 6.0 (12/29/13 12:39 AM) UA Spec Grav [<=1.030] 1.010 (12/29/13 12:39 AM) UA Glucose [Negative] Negative (12/29/13 12:39 AM) UA Blood [Negative] Moderate *ABN* (12/29/13 12:39 AM) UA Ketones [Negative] Negative *NA* (12/29/13 12:39 AM) UA Protein [Negative] Negative (12/29/13 12:39 AM) UA Urobilinogen [0.1-1.0 EU/dL] 0.2 EU/dL (12/29/13 12:39 AM) UA Bili [Negative] Negative *NA* (12/29/13 12:39 AM) UA Leuk Est [Negative] Negative (12/29/13 12:39 AM) UA Nitrite [Negative] Negative (12/29/13 12:39 AM) UA WBC [None Seen /HPF] 0-2 /HPF (12/29/13 12:39 AM) UA RBC [0-2 /HPF] 3-5 /HPF *ABN* (12/29/13 12:39 AM) UA Bacteria [None Seen /HPF] Few /HPF (12/29/13 12:39 AM) UA Sq Epi [Few /LPF] Few /LPF (12/29/13 12:39 AM) HEMATOLOGY Most recent to oldest [Reference Range]: 1 WBC [3.7-10.4 K/CMM] 12.2 K/CMM *HI* (12/29/13 12:46 AM) RBC [4.20-5.40 M/CMM] 4.47 M/CMM (12/29/13 12:46 AM) Hgb [12.0-16.0 g/dL] 12.5 g/dL (12/29/13 12:46 AM) Hct [36.0-48.0 %] 37.5 % (12/29/13 12:46 AM) MCV [80.0-98.0 fL] 84.0 fL (12/29/13 12:46 AM) MCH [27.0-31.0 pg] 28.0 pg (12/29/13 12:46 AM) MCHC [32.0-36.0 g/dL] 33.3 g/dL (12/29/13 12:46 AM) RDW [11.5-14.5 %] 13.8 % (12/29/13 12:46 AM) Platelet [133-450 K/CMM] 378 K/CMM (12/29/13 12:46 AM) MPV [7.4-10.4 fL] 7.2 fL *LOW* (12/29/13 12:46 AM) Segs [45.0-75.0 %] 64.0 % (12/29/13 12:46 AM) Lymphocytes [20.0-40.0 %] 25.9 % (12/29/13 12:46 AM) Monocytes [2.0-12.0 %] 8.0 % (12/29/13 12:46 AM) Eosinophils [0.0-4.0 %] 1.6 % (12/29/13 12:46 AM) Basophils [0.0-1.0 %] 0.5 % (12/29/13 12:46 AM) Segs-Bands # [1.5-8.1 K/CMM] 7.8 K/CMM (12/29/13 12:46 AM) Lymphocytes # [1.0-5.5 K/CMM] 3.2 K/CMM (12/29/13 12:46 AM) Monocytes # [0.0-0.8 K/CMM] 1.0 K/CMM *HI* (12/29/13 12:46 AM) Eosinophils # [0.0-0.5 K/CMM] 0.2 K/CMM (12/29/13 12:46 AM) Basophils # [0.0-0.2 K/CMM] 0.1 K/CMM (12/29/13 12:46 AM) Medications Administered During Your Visit No data available for this section Immunizations No data available for this section Procedures Procedure Type Body Site Date of Procedure Related Diagnosis section Colonoscopy Cystoscopy and retrograde pyelography1 12/29/13 12:00 AM 1Cystoscopy under anesthesia, right ureteroscopy, laser lithotripsy and basket extraction of stone, right retrograde pyelogram and right ureteral stent placement. Social History Social History Type Response Assessment and Plan Extracted from: Title: Operative report Author: Hector Duque MD Date: 12/29/13 PREOPERATIVE DIAGNOSIS Right ureteral vesicle junction stone. POSTOPERATIVE DIAGNOSIS Right ureteral vesicle junction stone PROCEDURE Cystoscopy under anesthesia, right ureteroscopy, laser lithotripsy and basket extraction of stone, right retrograde pyelogram and right ureteral stent placement. SURGEON Hector Duque MD ANESTHESIA General SPECIMENS Right ureteral calculus. DRAINS: A 5-Salvadorean 84-cm double-J right ureteral stent. STATEMENT OF OPERATIVE NEED: The patient is a 33-year-old female who presented with a history of right flank pain. CT revealed a 6 mm ureterovesical junction right sided stone. The risks, benefits and alternatives to right ureter oscopy, laser lithotripsy, basket extraction and stent placement were explained to the patient and the patient provided written and verbal consent to proceed. SUMMARY OF OPERATION: The patient was taken to the operating room, placed supine on the operating table. After adequate general endotracheal anesthesia was administered, the patient was given 2 grams of IV Ancef and placed in dorsal lithotomy position using Marcelino stirrups. All pressure points were padded. The patient was prepped and draped in standard surgical fashion. Rigid cystoscopy was performed which revealed a no rmal-appearing urethra and bladder. The right ureteral orifice was identified and intubated with a 5-Salvadorean open-ended catheter through which a retrograde pyelogram was performed. This revealed a fill ing defect in distal ureter consistent with a stone. Through the 5-Salvadorean open -ended catheter, a 0.035 sensor wire was placed into the collecting system, under fluoroscopic guidance. The right ureter was noted to be extremely tortuous and wire advancement was difficult due to this. The catheter and cystoscope were then backloaded off the wire. An 8F/ 10F dilator was advanced to the level of the sto ne. The wire was then clamped to the drape as a safety wire. The rigid ureteroscope was advanced adjacent to the wire to the level of the stone. A 365 micron holmium laser fiber was advanced through the working channel of the ureteroscope and used to fragment the stone into several smaller pieces. A 0-tip nitinol basket was used to grasp these stone fragments and these were sent as a specimen labe led right ureteral stone. Once this was performed there was no further evidence of stone in the urinary tract. A 5-Salvadorean 24-cm double-J right ureteral stent was advanced over the wire into the [facility] system under fluoroscopic guidance. The radiographic pusher was used to ensure good coil both within the collecting system as well as in the bladder. The dangler string was left intact for remova l in clinic. At this point, the patient's bladder was drained. The patient was cleaned, taken out of dorsal lithotomy position, awakened from anesthesia. Postop plan is to discharge patient home once her pain is controlled and follow up in approximately 1 week for stent removal. Extracted from: Title: Urology Consultation Author: Hector Duque MD Date: 12/29/13 Impression and Plan Completely obstructing right UVJ stone. Discussed right URS with laser lithotripsy and stent given her obstruction and pain. R/B/A discuused, patient consented. Plan to perform procedure later today.
--- OUTSIDE RECORDS SUMMARY | 2018-06-11 11:02 | XMS REPORT | Summary of Care ---
:1980 Author Organization [facility] Outpatient [facility] [place] Address [address] [place], [place] [address]- Encounter HQ Encntr_alikayla(FIN) [id number] Date(s): 09/27/17 - 09/27/17 [facility] Outpatient Imaging [address] [address]- [place] Discharge Disposition: Home or Self Care Attending Physician: Shane Laureano MD Vital Signs No data available for this section Problem List Condition Effective Dates Status Health Status Informant Ureteric stone1 01/07/14 Active 1Data migrated from [employer] on 09/05/14. Allergies, Adverse Reactions, Alerts Substance Reaction Severity Status levofloxacin1 Active Levaquin rapid heart beat Active rash NKFA Active 1Data migrated from [employer] on 08/07/14. Originally documented as LEVAQUIN. Medications No data available for this section Results No data available for this section Immunizations [...]
--- OUTSIDE RECORDS SUMMARY | 2018-06-11 11:03 | XMS REPORT | Summary of Care ---
:1980 Author Encounter SUSANA Soriano(FLAVIA) [id number] Date(s): 09/28/14 - 09/29/14 [facility] [address] [place] [address]- Discharge Diagnosis: Acute urinary tract infection Discharge Disposition: Home Physician Attending: Mary Nino DO Vital Signs Most recent to oldest [Reference Range]: 1 2 Temperature Oral [96.4-99.1 DegF] 98.0 DegF 97.8 DegF (09/29/14 2:00 AM) (09/28/14 11:11 PM) Blood Pressure [90-140/60-90 mmHg] 108/67 mmHg 146/85 mmHg (09/29/14 2:00 AM) *HI* (09/28/14 11:11 PM) Respiratory Rate [14-20 BRMIN] 18 BRMIN 20 BRMIN (09/29/14 2:00 AM) (09/28/14 11:11 PM) Peripheral Pulse Rate [60-100 bpm] 77 bpm 93 bpm (09/29/14 2:00 AM) (09/28/14 11:11 PM) Weight 73.636 kg (09/28/14 11:11 PM) Problem List Condition Effective Dates Status Health Status Informant Ureteric stone1 01/07/14 Active 1Data migrated from [employer] on 09/05/14. Allergies, Adverse Reactions, Alerts Substance Reaction Severity Status Ceftin rash Active rapid heart beat Levaquin rash Active rapid heart beat NKFA Active Rocephin rash Active rapid heart beat Vicodin rash Active rapid heart beat anxiety attack Medications Bactrim DS 800 mg- 160 mg oral tablet 1 tab, PO, BID, X 10 day, # 20 tab, 0 Refill(s) Start Date: 09/29/14 Stop Date: 10/09/14 Status: Orderedclindamycin + Sodium Chloride 0.9% IV 50 mL 600 mg, 4 mL, Route: IVPB, Drug form: INJ, ONCE, Dosing Weight 73.636, kg, Priority: STAT, Start date: 09/29/14 0:20:00, Stop date: 09/29/14 0:20:00 Notes: (Same As: Cleocin) Start Date: 09/29/14 Stop Date: 09/29/14 Status: Completedmorphine Sulfate 4 mg, 2 mL, Route: IVP, Drug form: INJ, ONCE, Dosing Weight 73.636, kg, Priority : STAT, Start date: 09/29/14 0:09:00, Stop date: 09/29/14 0:09:00 Notes: (Same as:MORPhine Sulfate) Start Date: 09/29/14 Stop Date: 09/29/14 Status: CompletedSodium Chloride 0.9% (Bolus) IV 1,000 mL, 1000 ml/hr, Infuse Over: 1 hr, Route: IV, 1,000, Drug form: INJ, ONCE , Priority: STAT, Dosing Weight 73.636 kg, Start date: 09/29/14 0:09:00, Duration: 1 doses or times, Stop date: 09/29/14 0:09:00 Start Date: 09/29/14 Stop Date: 09/29/14 Status: CompletedZofran 4 mg, 2 mL, Route: IVP, Drug form: INJ, ONCE, Dosing Weight 73.636, kg, Priority : STAT, Start date: 09/29/14 0:09:00, Stop date: 09/29/14 0:09:00 Notes: (Same as: Zofran) MEDICATION WASTE Product Size: 4 mgProduct Wasted: ___ mg Start Date: 09/29/14 Stop Date: 09/29/14 Status: Completed Results ELECTROLYTES Most recent to oldest [Reference Range]: 1 Sodium Lvl [135-145 mEq/L] 139 mEq/L (09/29/14 12:40 AM) Potassium Lvl [3.5-5.1 mEq/L] 3.5 mEq/L (09/29/14 12:40 AM) Chloride Lvl [95-109 mEq/L] 106 mEq/L (09/29/14 12:40 AM) CO2 [24-32 mEq/L] 25 mEq/L (09/29/14 12:40 AM) AGAP [10.0-20.0 mEq/L] 11.5 mEq/L (09/29/14 12:40 AM) CHEM PANEL Most recent to oldest [Reference Range]: 1 Creatinine Lvl [0.5-1.4 mg/dL] 0.6 mg/dL (09/29/14 12:40 AM) eGFR 118 mL/min/1.73m2 1 *NA* (09/29/14:40 AM) BUN [7-22 mg/dL] 8 mg/dL (09/29/14 12:40 AM) B/C Ratio [6-25] 13 (09/29/14:40 AM) Glucose Lvl [70-99 mg/dL] 95 mg/dL 2 (09/29/14:40 AM) Total Protein [6.4-8.4 g/dL] 7.2 g/dL (09/29/14:40 AM) Albumin Lvl [3.5-5.0 g/dL] 3.7 g/dL (09/29/14 12:40 AM) Globulin [2.0-4.0 g/dL] 3.5 g/dL (09/29/14:40 AM) A/G Ratio [0.7-1.6] 1.1 (09/29/14:40 AM) Calcium Lvl [8.5-10.5 mg/dL] 8.3 mg/dL *LOW* (09/29/14 12:40 AM) ALT [0-65 unit/L] 20 unit/L (09/29/14 12:40 AM) AST [0-37 unit/L] 16 unit/L (09/29/14 12:40 AM) Alk Phos [39-136 unit/L] 82 unit/L (09/29/14 12:40 AM) Bili Total [0.2-1.3 mg/dL] 0.3 mg/dL (09/29/14 12:40 AM) 1Result Comment: The eGFR is calculated [...] values reflect the clinical guidelines of the [place] [employer].URINE CHEM Most recent to oldest [Reference Range]: 1 U Preg [Negative] Negative (09/28/14 11:54 PM) URINE AND STOOL Most recent to oldest [Reference Range]: 1 UA Turbidity [Clear] Slight Cloudy (09/28/14 11:54 PM) UA Color [Yellow] Yellow *NA* (09/28/14 11:54 PM) UA pH [5.0-8.0] 5.5 (09/28/14 11:54 PM) UA Spec Grav [<=1.030] 1.025 (09/28/14 11:54 PM) UA Glucose [Negative] Negative (09/28/14 11:54 PM) UA Blood [Negative] Moderate *ABN* (09/28/14 11:54 PM) UA Ketones [Negative mg/dL] 40 mg/dL *ABN* (09/28/14 11:54 PM) UA Protein [Negative mg/dL] 100 mg/dL *ABN* (09/28/14 11:54 PM) UA Urobilinogen [0.1-1.0 EU/dL] 0.2 EU/dL (09/28/14 11:54 PM) UA Bili [Negative] Negative *NA* (09/28/14 11:54 PM) UA Leuk Est [Negative] Small *ABN* (09/28/14 11:54 PM) UA Nitrite [Negative] Negative (09/28/14 11:54 PM) UA WBC [None Seen /HPF] 51-100 /HPF *ABN* (09/28/14 11:54 PM) UA RBC [0-2 /HPF] 3-5 /HPF *ABN* (09/28/14 11:54 PM) UA Bacteria [None Seen /HPF] Few /HPF (09/28/14 11:54 PM) UA Sq Epi [Few /LPF] Occasional /LPF (09/28/14 11:54 PM) HEMATOLOGY Most recent to oldest [Reference Range]: 1 WBC [3.7-10.4 K/CMM] 16.7 K/CMM *HI* (09/29/14 12:40 AM) RBC [4.20-5.40 M/CMM] 4.44 M/CMM (09/29/14 12:40 AM) Hgb [12.0-16.0 g/dL] 8.9 g/dL *LOW* (09/29/14 12:40 AM) Hct [36.0-48.0 %] 30.2 % *LOW* (09/29/14 12:40 AM) MCV [80.0-98.0 fL] 68.1 fL *LOW* (09/29/14 12:40 AM) MCH [27.0-31.0 pg] 20.2 pg *LOW* (09/29/14 12:40 AM) MCHC [32.0-36.0 g/dL] 29.6 g/dL *LOW* (09/29/14 12:40 AM) RDW [11.5-14.5 %] 17.3 % *HI* (09/29/14 12:40 AM) Platelet [133-450 K/CMM] 388 K/CMM (09/29/14 12:40 AM) MPV [7.4-10.4 fL] 7.3 fL *LOW* (09/29/14 12:40 AM) Segs [45.0-75.0 %] 84.3 % *HI* (09/29/14 12:40 AM) Lymphocytes [20.0-40.0 %] 10.3 % *LOW* (09/29/14 12:40 AM) Monocytes [2.0-12.0 %] 5.1 % (09/29/14 12:40 AM) Eosinophils [0.0-4.0 %] 0.2 % (09/29/14 12:40 AM) Basophils [0.0-1.0 %] 0.1 % (09/29/14 12:40 AM) Segs-Bands # [1.5-8.1 K/CMM] 14.1 K/CMM *HI* (09/29/14 12:40 AM) Lymphocytes # [1.0-5.5 K/CMM] 1.7 K/CMM (09/29/14 12:40 AM) Monocytes # [0.0-0.8 K/CMM] 0.8 K/CMM (09/29/14 12:40 AM) Eosinophils # [0.0-0.5 K/CMM] 0.0 K/CMM (09/29/14 12:40 AM) Basophils # [0.0-0.2 K/CMM] 0.0 K/CMM (09/29/14 12:40 AM) Anisocyte [None Seen] 2+ *ABN* (09/29/14 12:40 AM) Hypochrom [None Seen] 1+ (09/29/14 12:40 AM) Microcyte [None Seen] 1+ *ABN* (09/29/14 12:40 AM) Toxic Gran [None Seen] Moderate *ABN* (09/29/14 12:40 AM) Plt Morph Normal (09/29/14 12:40 AM) PT [12.0-14.7 seconds] 13.0 seconds (09/29/14 12:40 AM) INR [0.85-1.17] 0.98 3 (09/29/14 12:40 AM) PTT [22.9-35.8 seconds] 32.8 seconds 4 (09/29/14 12:40 AM) 3Interpretive Data: RECOMMENDED RANGES FOR PROTIME INR: 2.0-3.0 for most medical and surgical thromboembolic states. 2.5-3.5 for artificial heart valves and recurrent embolism. INR SHOULD BE USED ONLY FOR PATIENTS ON STABLE ANTICOAGULANT THERAPY.4Interpretive Data: Heparin Therapeutic Range: 57 - 92 Seconds Immunizations No data available for this section Procedures Procedure Date Related Diagnosis Body Site Cystoscopy and retrograde pyelography1 12/29/13 section Colonoscopy 1Cystoscopy under anesthesia, right ureteroscopy, laser lithotripsy and basket extraction of stone, right retrograde pyelogram and right ureteral stent placement. Social History Social History Type Response Smoking Status Never smoker; Previous treatment: None; Ready to change: No; Concerns about tobacco use in household: No; Exposure to Tobacco Smoke None; Cigarette Smoking Last 365 Days No; Reg Smoking Cessation Counseling No Assessment and Plan No data available for this section
--- OUTSIDE RECORDS SUMMARY | 2018-06-11 11:03 | XMS REPORT | Summary of Care ---
:1980 Author Organization [facility] Address [address], [place] [address]- Encounter [facility]) [phone] Date(s): 05/23/15 - 05/23/15 [facility] [address] [place] [address]- Discharge Diagnosis: Acute lower UTI Discharge Diagnosis: Anemia Discharge Diagnosis: Acute gastritis Discharge Disposition: Home Attending Physician: Doris Harvey MD Vital Signs Most recent to oldest [Reference Range]: 1 2 Temperature Oral [96.4-99.1 DegF] 98.0 DegF 97.8 DegF (05/23/15 3:55 PM) (05/23/15 1:47 PM) Blood Pressure [90-140/60-90 mmHg] 119/75 mmHg 144/93 mmHg (05/23/15 3:17 PM) *HI* (05/23/15 1:47 PM) Respiratory Rate [14-20 BRMIN] 18 BRMIN 18 BRMIN (05/23/15 3:17 PM) (05/23/15 1:47 PM) Peripheral Pulse Rate [60-100 bpm] 92 bpm 84 bpm (05/23/15 3:17 PM) (05/23/15 1:47 PM) Weight 70.455 kg (05/23/15 1:47 PM) Problem List Condition Effective Dates Status Health Status Informant Ureteric stone1 01/07/14 Active 1Data migrated from [employer] on 09/05/14. Allergies, Adverse Reactions, Alerts Substance Reaction Severity Status Ceftin rash Active rapid heart beat Levaquin rash Active rapid heart beat NKFA Active Rocephin rash Active rapid heart beat Vicodin rash Active rapid heart beat anxiety attack Medications ferrous sulfate 325 mg oral enteric coated tablet 325 mg=1 tab, PO, Daily, # 30 tab, 0 Refill(s) Start Date: 05/23/15 Status: OrderedMacrobid 100 mg oral capsule 100 mg=1 cap, PO, BID, X 7 day, # 14 cap, 0 Refill(s) Start Date: 05/23/15 Stop Date: 05/30/15 Status: Orderedmorphine Sulfate 2 mg, Route: IVP, Drug form: INJ, ONCE, Dosing Weight 70.455, kg, Priority: STAT , Start date: 05/23/15 15:23:00, Stop date: 05/23/15 15:23:00 Start Date: 05/23/15 Stop Date: 05/23/15 Status: Deletedomeprazole 40 mg oral delayed release capsule 40 mg=1 cap, PO, Daily, # 30 cap, 0 Refill(s) Start Date: 05/23/15 Status: OrderedSaline Flush 0.9% 10 mL, Route: IVP, Drug Form: INJ, Dosing Weight 70.455, kg, PRN, PRN Line Flush , Start date: 05/23/15 14:16:00, Duration: 30 day, Stop date: 06/22/15 15:15:00 Notes: (Same as: BD Posiflush) Start Date: 05/23/15 Stop Date: 05/23/15 Status: Discontinuedtramadol 50 mg oral tablet 50 mg=1 tab, PO, BID, X 15 day, # 30 tab, 0 Refill(s) Start Date: 05/23/15 Stop Date: 06/07/15 Status: Ordered Results ELECTROLYTES Most recent to oldest [Reference Range]: 1 Sodium Lvl [135-145 mEq/L] 138 mEq/L (05/23/15 2:36 PM) Potassium Lvl [3.5-5.1 mEq/L] 3.2 mEq/L *LOW* (05/23/15 2:36 PM) Chloride Lvl [95-109 mEq/L] 105 mEq/L (05/23/15 2:36 PM) CO2 [24-32 mEq/L] 27 mEq/L (05/23/15 2:36 PM) AGAP [10.0-20.0 mEq/L] 9.2 mEq/L *LOW* (05/23/15 2:36 PM) CHEM PANEL Most recent to oldest [Reference Range]: 1 Creatinine Lvl [0.50-1.40 mg/dL] 0.52 mg/dL (05/23/15 2:36 PM) eGFR 124 mL/min/1.73m2 1 *NA* (05/23/15 2:36 PM) BUN [7-22 mg/dL] 11 mg/dL (05/23/15 2:36 PM) B/C Ratio [6-25] 21 (05/23/15 2:36 PM) Glucose Lvl [70-99 mg/dL] 94 mg/dL (05/23/15 2:36 PM) Total Protein [6.4-8.4 g/dL] 7.0 g/dL (05/23/15 2:36 PM) Albumin Lvl [3.5-5.0 g/dL] 3.6 g/dL (05/23/15 2:36 PM) Globulin [2.0-4.0 g/dL] 3.4 g/dL (05/23/15 2:36 PM) A/G Ratio [0.7-1.6] 1.1 (05/23/15 2:36 PM) Calcium Lvl [8.5-10.5 mg/dL] 8.0 mg/dL *LOW* (05/23/15 2:36 PM) ALT [0-65 unit/L] 20 unit/L (05/23/15 2:36 PM) AST [0-37 unit/L] 16 unit/L (05/23/15 2:36 PM) Alk Phos [39-136 unit/L] 73 unit/L (05/23/15 2:36 PM) Bili Total [0.2-1.3 mg/dL] 0.3 mg/dL (05/23/15 2:36 PM) Lipase Lvl [73-393 unit/L] 127 unit/L (05/23/15 2:36 PM) 1Result Comment: The eGFR is calculated [...] [Reference Range]: 1 U Preg [Negative] Negative (05/23/15 2:36 PM) URINE AND STOOL Most recent to oldest [Reference Range]: 1 UA Turbidity [Clear] Clear (05/23/15 2:36 PM) UA Color [Yellow] Yellow *NA* (05/23/15 2:36 PM) UA pH [5.0-8.0] 6.0 (05/23/15 2:36 PM) UA Spec Grav [<=1.030] 1.020 (05/23/15 2:36 PM) UA Glucose [Negative] Negative (05/23/15 2:36 PM) UA Blood [Negative] Moderate *ABN* (05/23/15 2:36 PM) UA Ketones [Negative] Negative *NA* (05/23/15 2:36 PM) UA Protein [Negative] Negative (05/23/15 2:36 PM) UA Urobilinogen [0.1-1.0 EU/dL] 0.2 EU/dL (05/23/15 2:36 PM) UA Bili [Negative] Negative *NA* (05/23/15 2:36 PM) UA Leuk Est [Negative] Small *ABN* (05/23/15 2:36 PM) UA Nitrite [Negative] Negative (05/23/15 2:36 PM) UA WBC [None Seen /HPF] 11-20 /HPF *ABN* (05/23/15 2:36 PM) UA RBC [0-2] None Seen (05/23/15 2:36 PM) UA Bacteria [None Seen /HPF] Moderate /HPF (05/23/15 2:36 PM) UA Sq Epi [Few /LPF] Rare /LPF (05/23/15 2:36 PM) UA Mucus [None Seen /LPF] Few /LPF (05/23/15 2:36 PM) HEMATOLOGY Most recent to oldest [Reference Range]: 1 WBC [3.7-10.4 K/CMM] 8.3 K/CMM (05/23/15 2:36 PM) RBC [4.20-5.40 M/CMM] 4.24 M/CMM (05/23/15 2:36 PM) Hgb [12.0-16.0 g/dL] 8.0 g/dL *LOW* (05/23/15 2:36 PM) Hct [36.0-48.0 %] 26.6 % *LOW* (05/23/15 2:36 PM) MCV [80.0-98.0 fL] 62.8 fL *LOW* (05/23/15 2:36 PM) MCH [27.0-31.0 pg] 18.8 pg *LOW* (05/23/15 2:36 PM) MCHC [32.0-36.0 g/dL] 29.9 g/dL *LOW* (05/23/15 2:36 PM) RDW [11.5-14.5 %] 18.0 % *HI* (05/23/15 2:36 PM) Platelet [133-450 K/CMM] 371 K/CMM (05/23/15 2:36 PM) MPV [7.4-10.4 fL] 7.6 fL (05/23/15 2:36 PM) Segs [45.0-75.0 %] 58.4 % (05/23/15 2:36 PM) Lymphocytes [20.0-40.0 %] 31.3 % (05/23/15 2:36 PM) Monocytes [2.0-12.0 %] 8.5 % (05/23/15 2:36 PM) Eosinophils [0.0-4.0 %] 1.5 % (05/23/15 2:36 PM) Basophils [0.0-1.0 %] 0.3 % (05/23/15 2:36 PM) Segs-Bands # [1.5-8.1 K/CMM] 4.8 K/CMM (05/23/15 2:36 PM) Lymphocytes # [1.0-5.5 K/CMM] 2.6 K/CMM (05/23/15 2:36 PM) Monocytes # [0.0-0.8 K/CMM] 0.7 K/CMM (05/23/15 2:36 PM) Eosinophils # [0.0-0.5 K/CMM] 0.1 K/CMM (05/23/15 2:36 PM) Basophils # [0.0-0.2 K/CMM] 0.0 K/CMM (05/23/15 2:36 PM) Anisocyte [None Seen] 1+ *ABN* (05/23/15 2:36 PM) Hypochrom [None Seen] 1+ (05/23/15 2:36 PM) Microcyte [None Seen] 1+ *ABN* (05/23/15 2:36 PM) Stomatocyte Slight *NA* (05/23/15 2:36 PM) Immunizations No data available for this section Procedures Procedure Date Related Diagnosis Body Site Cystoscopy and retrograde pyelography1 12/29/13 section Colonoscopy 1Cystoscopy under anesthesia, right ureteroscopy, laser lithotripsy and basket extraction of stone, right retrograde pyelogram and right ureteral stent placement. Social History Social History Type Response Smoking Status Never smoker; Exposure to Tobacco Smoke None; Cigarette Smoking Last 365 Days No; Reg Smoking Cessation Counseling No Assessment and Plan No data available for this section
--- OUTSIDE RECORDS SUMMARY | 2018-06-11 11:03 | XMS REPORT | Encounter Summary ---
:1980 Author Reason for Visit congestion; Cough Instructions 1. Acute maxillary sinusitis Augmentin 875 mg-125 mg tablet Discussion Note RTC for any other concerns Patient educational handouts: No information available. Plan of Care Patient Instructions rec zyrtec; push fluids and ensure rest; take medication as directed Reminders Provider Appointments None recorded. Lab None recorded. Referral None recorded. Procedures None recorded. Surgeries None recorded. Imaging None recorded. Medications Name Start Date Augmentin 875 mg-125 mg tablet Take 1 tablet every 12 hours by oral route for 10 days. Medications Administered None recorded. Vitals Height Weight BMI Blood Pressure 63 in 143 lbs 25.3 kg/m2 118/80 mm[Hg] Lab Results Date Name Specimen Result Interpretation Description Value Range Status Address 03/29/2018 Urinalysis, Urine Leukocytes Negative In-House Dipstick Results: For Internal Use Only Urine Nitrite negative In-House Results: For Internal Use Only Urine Urobilinogen .2 In-House Results: For Internal Use Only Urine Protein Negative In-House Results: For Internal Use Only Urine Ph 8.5 In-House Results: For Internal Use Only Urine Blood Non-Hemolyz In-House ed: Trace Results: For Internal Use Only Urine Specific 1.020 In-House [place] Results: For Internal Use Only Urine Ketone Negative In-House Results: For Internal Use Only Urine Bilirubin Negative In-House Results: For Internal Use Only Urine Glucose Negative In-House Results: For Internal Use Only Urine Appearance Cloudy In-House Results: For Internal Use Only Urine Color Yellow In-House Results: For Internal Use Only Allergies Code Code System Name Reaction Severity Status Onset 21580515 RxNorm Ceftin Itching Active 21781209 RxNorm Levaquin Itching Active Rocephin Rash Severe Active Problems Name Status Onset Date Source Acute Sinusitis Active Encounter Allergic Rhinitis Active Encounter Urinary Tract Infectious Disease Active Encounter Procedures Date Name Performed by Anesth Kidney Stone Destruct Information not available Cardiac Surgery Information not available Tubal Ligation Information not available Vaccine List None recorded. Social History Smoking Status Never Smoker Past Encounters 04/25/2018 Acute Maxillary Sinusitis Rafaela Kenny, [employer]: [address], [address], [place] [address], Ph. 03/29/2018 Dysuria; Acute Upper Respiratory Infection Alex Pena MD: [address], [address], [place] [address], Ph. History of Present Illness Note: pt to clinic for cough, congestion x 1 month; she has taken 2 rounds of zpak; she states after taking the antibiotic symptoms improve for a few days and then return; she reports thick green mucous Review of Systems General Adult ROS Reported By: Patient Constitutional: Constitutional: no fever ENMT: Ears: no ear pain. Nose: nose/sinus problems. Mouth/Throat: no sore throat Cardiovascular: Cardiovascular: no chest pain Respiratory: Respiratory: no wheezing, no shortness of breath, cough Gastrointestinal: Gastrointestinal: no abdominal pain, no vomiting, no diarrhea Endocrine: Endocrine: no fatigue Allergic/Immunologic: Allergy/Immunologic: sinus pressure Physical Exam Teresa Brief Adult Exam - M/F Reported By: Patient Constitutional: General Appearance: healthy-appearing, well-nourished, well-developed. Level of Distress: NAD. Ambulation: ambulating normally Psychiatric: Mental Status: active and alert ENMT: Ears: middle ear fluid; left Neck: Lymph Nodes: cervical LAD Lungs: Auscultation: breath sounds normal Cardiovascular: Heart Auscultation: RRR, normal S1, normal S2, no murmurs Notes: maxillary sinus tenderness
--- OUTSIDE RECORDS SUMMARY | 2018-06-11 11:03 | XMS REPORT | CCD ---
:1980 Author Organization [facility] Team Providers Name Role Phone Mariam Williamson Consulting Provider Allergies, Adverse Reactions, Alerts Substance Reaction Status Ceftin Active Levaquin Active Rocephin Active Medications Medication Instructions Start Date End Date Status Saline Flush 0.9% 5 ml, Route: IVP, Drug 10/19/2011 10/19/2011 Discontinued Form: INJ, PRN, PRN Line Flush, Start date: 10/19/11 12:00:00, Duration: 24 hr, Stop date: 10/20/11 11:59:00 Sodium Chloride 0.9% 1,000 mL, Rate: 1,000 10/19/2011 10/19/2011 Completed (Bolus) IV 1,000 mL ml/hr, Infuse over: 1 hr, Route: IV, Total Volume: 1,000, Bolus dose, Priority: STAT, Start date: 10/19/11 12:00:00, Duration: 1 doses or times, Stop date: 10/19/11 12:59:00 potassium chloride 40 mEq, 2 tab, Route: PO, 10/20/2011 10/19/2011 Canceled Drug form: ERTAB, Daily, Priority: Routine, Start date: 10/20/11 9:00:00, Duration: 30 day, Stop date: 11/18/11 9:00:00 potassium chloride 40 mEq, 2 tab, Route: PO, 10/19/2011 10/19/2011 Completed Drug form: ERTAB, ONCE, Priority: Routine, Start date: 10/19/11 14:01:00, Stop date: 10/19/11 14:01:00 Bactrim DS oral tablet 1 tab, PO, BID, 10 tab, 10/19/2011 Ordered Substitution Allowed, Soft Stop, TAB Vital Signs Most recent to oldest [Reference Range]: 1 Weight 62.386 kg (10/19/2011 12:07:00) Results INFECTIOUS DISEASES Most recent to oldest [Reference Range]: 1 C difficile DNA [Negative] Negative 1 (10/19/2011 12:30:00) 1Interpretive Data: Skipo illumigene Clostridium difficile assay utilizes loop-mediated isothermalDNA amplification (LAMP) technology to detect a 204 bp region of the tcdA gene within the PaLoc genesegment present in all known toxigenic C. difficile strains. The assay utilizes FDA cleared IVD reagents. Performance characteristics have been verified by the [facility] within the [facility]. The [facility] is authorized under the Clinical Laboratory Improvement Amendment of 1988 (CLIA-88) to perform highcomplexity testing.URINALYSIS Most recent to oldest [Reference Range]: 1 UA Turbidity [Clear] Clear (10/19/2011 12:31:00) UA Color [Yellow] Yellow *NA* (10/19/2011 12:31:00) UA pH [5.0-8.0] 6.0 (10/19/2011 12:31:00) UA Spec Grav [<=1.030] 1.020 (10/19/2011 12:31:00) UA Glucose [Negative] Negative (10/19/2011 12:31:00) UA Blood [Negative] Moderate *ABN* (10/19/2011 12:31:00) UA Ketones [Negative] Negative *NA* (10/19/2011 12:31:00) UA Protein [Negative] Negative (10/19/2011 12:31:00) UA Urobilinogen [0.1-1.0 EU/dL] 0.2 EU/dL (10/19/2011 12:31:00) UA Bili [Negative] Negative *NA* (10/19/2011 12:31:00) UA Leuk Est [Negative] Negative (10/19/2011 12:31:00) UA Nitrite [Negative] Negative (10/19/2011 12:31:00) UA WBC [None Seen /HPF] 0-2 /HPF (10/19/2011 12:31:00) UA RBC [0-2 /HPF] 3-5 /HPF *ABN* (10/19/2011 12:31:00) UA Bacteria [None Seen /HPF] Occasional /HPF (10/19/2011 12:31:00) UA Sq Epi [Few /LPF] Many /LPF *ABN* (10/19/2011 12:31:00) UA Mucus [None Seen /LPF] Moderate /LPF *ABN* (10/19/2011:31:00) Micro? Performed (10/19/2011 12:31:00) CHEMISTRY Most recent to oldest [Reference Range]: 1 Sodium Lvl [135-145 mEq/L] 141 mEq/L (10/19/2011 12:22:00) Potassium Lvl [3.5-5.1 mEq/L] 3.2 mEq/L *LOW* (10/19/2011:22:00) Chloride Lvl [95-109 mEq/L] 106 mEq/L (10/19/2011:22:00) CO2 [24-32 mEq/L] 25 mEq/L (10/19/2011:22:00) AGAP [10.0-20.0 mEq/L] 13.2 mEq/L (10/19/2011:22:00) Creatinine Lvl [0.5-1.4 mg/dL] 0.6 mg/dL (10/19/2011:22:00) BUN [7-22 mg/dL] 10 mg/dL (10/19/2011:22:00) B/C Ratio [6-25] 17 (10/19/2011:22:00) Glucose Lvl [70-99 mg/dL] 92 mg/dL 2 (10/19/2011:22:00) Total Protein [6.4-8.4 g/dL] 7.5 g/dL (10/19/2011:22:00) Albumin Lvl [3.5-5.0 g/dL] 3.9 g/dL (10/19/2011:22:00) Globulin [2.0-4.0 g/dL] 3.6 g/dL (10/19/2011:22:00) A/G Ratio [0.7-1.6] 1.1 (10/19/2011 12:22:00) Calcium Lvl [8.5-10.5 mg/dL] 8.7 mg/dL (10/19/2011 12:22:00) ALT [0-65 U/L] 15 U/L (10/19/2011 12:22:00) AST [0-37 U/L] 9 U/L (10/19/2011 12:22:00) Alk Phos [39-136 U/L] 48 U/L (10/19/2011 12:22:00) Bili Total [0.2-1.3 mg/dL] 0.4 mg/dL (10/19/2011 12:22:00) Lipase Lvl [73-393 U/L] 105 U/L (10/19/2011 12:22:00) 2Interpretive Data: Adult reference range values reflect the clinical guidelines of the [place] [employer].HEMATOLOGY Most recent to oldest [Reference Range]: 1 WBC [3.7-10.4 K/CMM] 13.5 K/CMM *HI* (10/19/2011 12:22:00) RBC [4.20-5.40 M/CMM] 4.29 M/CMM (10/19/2011 12:22:00) Hgb [12.0-16.0 g/dL] 10.8 g/dL *LOW* (10/19/2011 12:22:00) Hct [36.0-48.0 %] 33.7 % *LOW* (10/19/2011 12:22:00) MCV [81.0-99.0 fL] 78.5 fL *LOW* (10/19/2011 12:22:00) MCH [27.0-31.0 pg] 25.1 pg *LOW* (10/19/2011 12:22:00) MCHC [32.0-36.0 g/dL] 32.0 g/dL (10/19/2011 12:22:00) RDW [11.5-14.5 %] 16.1 % *HI* (10/19/2011 12:22:00) Platelet [133-450 K/CMM] 345 K/CMM (10/19/2011 12:22:00) MPV [7.4-10.4 fL] 7.8 fL (10/19/2011 12:22:00) Segs [45.0-75.0 %] 82.4 % *HI* (10/19/2011 12:22:00) Lymphocytes [20.0-40.0 %] 8.7 % *LOW* (10/19/2011 12:22:00) Monocytes [2.0-12.0 %] 8.9 % (10/19/2011 12:22:00) Eosinophils [0.0-4.0 %] 0.0 % (10/19/2011 12:22:00) Basophils [0.0-1.0 %] 0.0 % (10/19/2011 12:22:00) Segs-Bands # [1.5-8.1 K/CMM] 11.1 K/CMM *HI* (10/19/2011 12:22:00) Lymphocytes # [1.0-5.5 K/CMM] 1.2 K/CMM (10/19/2011 12:22:00) Monocytes # [0.0-0.8 K/CMM] 1.2 K/CMM *HI* (10/19/2011 12:22:00) Eosinophils # [0.0-0.5 K/CMM] 0.0 K/CMM (10/19/2011 12:22:00) Basophils # [0.0-0.2 K/CMM] 0.0 K/CMM (10/19/2011 12:22:00) Hypochrom [None Seen] Slight (10/19/2011 12:22:00) Microcyte [None Seen] 1+ *ABN* (10/19/2011 12:22:00) Plt Morph Normal (10/19/2011 12:22:00) Microbiology Reports PROCEDURE:Culture: Urine STATUS: In Progress BODY SITE: COLLECTED DATE/TIME: 10/19/2011 12:31:00 SOURCE: Urine, Clean Catch FREE TEXT SOURCE: PRELIMINARY REPORTS Preliminary ReportNo Growth; Holding
--- OUTSIDE RECORDS SUMMARY | 2018-06-11 11:03 | XMS REPORT | Encounter Summary ---
:1980 Author Reason for Visit Sick Instructions 1. Dysuria urinalysis, dipstick painful urination (dysuria): care instructions Diflucan 150 mg tablet 2. Acute upper respiratory infection upper respiratory infection (cold): care instructions Zithromax Z-Tyler 250 mg tablet Discussion Note: None recorded. Plan of Care Reminders Provider Appointments None recorded. Lab Urinalysis, In-House Results Dipstick 03/29/2018 Referral None recorded. Procedures None recorded. Surgeries None recorded. Imaging None recorded. Medications Name Start Date Afrin (oxymetazoline) 0.05 % nasal spray Venus 2 sprays twice a day by intranasal route for 3 days. Isabela Allergy 180 mg tablet Take 1 tablet every day by oral route for 30 days. amoxicillin 875 mg-potassium clavulanate 125 mg tablet Take 1 tablet every 12 hours by oral route for 10 days. Diflucan 150 mg tablet Take 1 tablet by oral route as directed for 1 day. Flonase Allergy Relief 50 mcg/actuation nasal spray,suspension Inhale 2 sprays every day by intranasal route. nitrofurantoin monohydrate/macrocrystals 100 mg capsule omeprazole 40 mg capsule,delayed release Zithromax Z-Tyler 250 mg tablet TAKE 2 TABLETS (500 MG) BY ORAL ROUTE ONCE DAILY FOR 1 DAY THEN 1 TABLET (250 MG) BY ORAL ROUTE ONCE DAILY FOR 4 DAYS Medications Administered None recorded. Vitals Weight Blood Pressure 143 lbs 123/81 mm[Hg] Lab Results None recorded. Allergies Code Code System Name Reaction Severity Status Onset 256887 RxNorm Bactrim Irregular Active Heart Rate 522398 RxNorm Ceftin Itching Active 385875 RxNorm Levaquin Itching Active Problems Name Status Onset Date Source Acute Sinusitis Active Encounter Allergic Rhinitis Active Encounter Urinary Tract Infectious Disease Active Encounter Procedures Date Name Performed by Anesth Kidney Stone Destruct Information not available Cardiac Surgery Information not available Tubal Ligation Information not available Vaccine List None recorded. Social History Smoking Status Never Smoker Past Encounters 03/29/2018 Dysuria; Acute Upper Respiratory Infection Alex Pena MD: [address] [place] [address], [address], [place] [address], Ph. History of Present Illness Upper Respiratory Symptoms Reported By: Patient Upper Respiratory Symptoms: Location: head, chest, throat. Quality: sharp throat pain, colored phlegm, congested, hacking cough. Severity: mild. Duration: symptoms lasting over 2 weeks. Onset/Timing: gradual. Context: no foreign travel, non-smoker, sick contact. Modifying Factors: OTC medication. Associated Symptoms: no change in number of pillows needed to sleep at night, no significant weight gain, no significant weight loss, no vomiting, no diarrhea, no rash, no nausea, sore throat Notes: had noticed some foul-smelling urinedark urine. Has not been drinking a lot of fluids. Was to make sure she does not have a UTI. Denies dysuria. Review of Systems: ROS as noted in the HPI Review of Systems None recorded. Physical Exam Upper Respiratory Infection Exam Reported By: Patient ENMT: Ears: TM erythematous. Nose: erythematous nasal mucosa, edematous nasal muscosa, frontal sinus tenderness, maxillary sinus tenderness. Oral Cavity: moist mucous membranes. Pharynx: erythema, tenderness, tonsils enlarged Lymph Nodes: Lymph Nodes LAD Lungs: Auscultation clear to auscultation, no rales/crackles, no rhonchi, no wheezing Cardiovascular: Rate And Rhythm RRR. Heart Sounds normal s1, normal s2, no murmurs Notes: well-nourished.
--- OUTSIDE RECORDS SUMMARY | 2018-06-11 11:03 | XMS REPORT ---
:1980 Author Organization [facility] Address [address] [place] [id number] Care Team Providers Name Role Phone Reny Siegel Unavailable Unavailable Problems This patient has no known problems. Allergies, Adverse Reactions, Alerts This patient has no known allergies or adverse reactions. Medications This patient has no known medications. Encounters Start End Encounter Admission Attending Care Care Encounter Date/Time Date/Time Type Type Clinicians Facility Department ID 2017-08-23 2017-08-23 Outpatient TANESHA Siegel [id number] 08:15:00 08:15:00 Reny 2017-08-22 2017-08-22 Outpatient TANESHA Siegel [id number] 14:38:00 14:38:00 Reny
--- OUTSIDE RECORDS SUMMARY | 2018-06-11 11:03 | XMS REPORT | CCD ---
:1980 Author Organization [facility] Team Providers Name Role Phone Heather Landaverde Shayne Consulting Provider Allergies, Adverse Reactions, Alerts Substance Reaction Status Ceftin Active Levaquin Active Rocephin Active Medications Medication Instructions Start Date End Date Status NS 1,000 mL 1,000 mL, Rate: 1,000 ml/hr, Infuse over: 1 hr, Route: IV, Dosing Weight 74.091 kg, Total Volume: 1,000, Start date: 10/22/11 18:49:00, Duration: 1 doses or times, Stop date: 10/22/11 19:48:00, Bolus Dose 10/22/20112011 Completed Bolus Dose potassium chloride 20 mEq 20 mEq, 1 tab, PO, BID, 10 10/22/2011 Ordered oral tablet, extended tab, Substitution Allowed release Vital Signs Most recent to oldest [Reference Range]: 1 Height 160.02 cm (10/22/2011 18:22:00) Weight 74.091 kg (10/22/2011 18:22:00) Results CHEMISTRY Most recent to oldest [Reference Range]: 1 Sodium Lvl [135-145 mEq/L] 141 mEq/L (10/22/2011 19:05:00) Potassium Lvl [3.5-5.1 mEq/L] 3.3 mEq/L *LOW* (10/22/2011 19:05:00) Chloride Lvl [95-109 mEq/L] 106 mEq/L (10/22/2011 19:05:00) CO2 [24-32 mEq/L] 24 mEq/L (10/22/2011 19:05:00) AGAP [10.0-20.0 mEq/L] 14.3 mEq/L (10/22/2011 19:05:00) Creatinine Lvl [0.5-1.4 mg/dL] 0.6 mg/dL (10/22/2011:05:00) BUN [7-22 mg/dL] 8 mg/dL (10/22/2011 19:05:00) B/C Ratio [6-25] 13 (10/22/2011 19:05:00) Glucose Lvl [70-99 mg/dL] 90 mg/dL 1 (10/22/2011 19:05:00) Total Protein [6.4-8.4 g/dL] 7.5 g/dL (10/22/2011:05:00) Albumin Lvl [3.5-5.0 g/dL] 4.0 g/dL (10/22/2011:05:00) Globulin [2.0-4.0 g/dL] 3.5 g/dL (10/22/2011:05:00) A/G Ratio [0.7-1.6] 1.1 (10/22/2011:05:00) Calcium Lvl [8.5-10.5 mg/dL] 8.5 mg/dL (10/22/2011:05:00) ALT [0-65 U/L] 17 U/L (10/22/2011:05:00) AST [0-37 U/L] 10 U/L (10/22/2011:05:00) Alk Phos [39-136 U/L] 50 U/L (10/22/2011:05:00) Bili Total [0.2-1.3 mg/dL] 0.3 mg/dL (10/22/2011:05:00) 1Interpretive Data: Adult reference range values reflect the clinical guidelines of the [place] [employer].HEMATOLOGY Most recent to oldest [Reference Range]: 1 WBC [3.7-10.4 K/CMM] 9.8 K/CMM (10/22/2011 19:05:00) RBC [4.20-5.40 M/CMM] 4.38 M/CMM (10/22/2011:05:00) Hgb [12.0-16.0 g/dL] 10.9 g/dL *LOW* (10/22/2011 19:05:00) Hct [36.0-48.0 %] 33.8 % *LOW* (10/22/2011 19:05:00) MCV [81.0-99.0 fL] 77.3 fL *LOW* (10/22/2011 19:05:00) MCH [27.0-31.0 pg] 24.9 pg *LOW* (10/22/2011 19:05:00) MCHC [32.0-36.0 g/dL] 32.3 g/dL (10/22/2011 19:05:00) RDW [11.5-14.5 %] 16.3 % *HI* (10/22/2011 19:05:00) Platelet [133-450 K/CMM] 370 K/CMM (10/22/2011 19:05:00) MPV [7.4-10.4 fL] 7.5 fL (10/22/2011 19:05:00) Segs [45.0-75.0 %] 62.2 % (10/22/2011 19:05:00) Lymphocytes [20.0-40.0 %] 28.6 % (10/22/2011 19:05:00) Monocytes [2.0-12.0 %] 8.3 % (10/22/2011 19:05:00) Eosinophils [0.0-4.0 %] 0.6 % (10/22/2011 19:05:00) Basophils [0.0-1.0 %] 0.3 % (10/22/2011 19:05:00) Segs-Bands # [1.5-8.1 K/CMM] 6.1 K/CMM (10/22/2011 19:05:00) Lymphocytes # [1.0-5.5 K/CMM] 2.8 K/CMM (10/22/2011 19:05:00) Monocytes # [0.0-0.8 K/CMM] 0.8 K/CMM (10/22/2011 19:05:00) Eosinophils # [0.0-0.5 K/CMM] 0.1 K/CMM (10/22/2011 19:05:00) Basophils # [0.0-0.2 K/CMM] 0.0 K/CMM (10/22/2011 19:05:00)
[2018-06-11 11:51] LABS: Urine Blood 2+ (NEG); Urine Glucose NEGATIVE (NEG); Urine Protein NEGATIVE (NEG); Urine Specific Gravity 1.025 (1.005-1.030)
--- NOTE | 2018-06-11 12:18 | RAD REPORT ---
EXAM DESCRIPTION: US - Transvaginal Study Probe - 06/11/2018 11:55 am CLINICAL HISTORY: Pelvic pain with vaginal bleeding COMPARISON: April 2017 cat scan FINDINGS: The uterus measures 8 x 4 x 5 cm. A fibroid is not seen. Endometrial stripe measures 8 mil limeters. Nabothian cysts are present within the cervix The ovaries are normal in size and echotexture. No significant free fluid is seen. IMPRESSION: Unremarkable pelvic ultrasound
[2018-06-11 12:48] LABS: BUN Blood Urea Nitrogen 10 mg/dL (7-18); Bicarbonate 26 mmol/L (21-32); Glucose Level 100 mg/dL (74-106); Potassium 3.3 mmol/L (3.5-5.1); Sodium Level 143 mmol/L (136-145)
[2018-06-11 12:49] LABS: Absolute Lymphocytes (CBC) 1.9 K/uL (0.7-4.9); Absolute Monocytes 0.5 K/uL (0.1-1.3); Basophils % 0.8 % (0-1.3); Eosinophils % 1.7 % (0-4.4); Hematocrit 28.7 % (36.0-45.0); Lymphocytes % 29.4 % (15.3-44.8); MPV 7.4 fL (7.6-11.3); Monocytes % 7.6 % (3.3-12.3); RBC Red Blood Cell Count 4.57 M/uL (3.86-4.86)
--- NOTE | 2018-06-11 13:21 | EDPHYS ---
Physician Documentation [facility] Name: Caitlyn Dawn Age: 37 yrs Sex: Female : 1980 Arrival Date: 06/11/2018 Time: 10:49 Bed 5 Private MD: ED Physician Carlos Alberto Rivera HPI: 06/11 11:26 This 37 yrs old Female presents to ER via Ambulatory with complaints of kb Vaginal Bleeding. 11:26 The patient presents with vaginal bleeding that is moderate. The patient has not kb experienced similar symptoms in the past. The patient has not recently seen a physician. 11:26 Onset: The symptoms/episode began/occurred 3 week(s) ago. Modifying factors: The kb symptoms are alleviated by nothing, the symptoms are aggravated by nothing. Associated signs and symptoms: Pertinent positives: cramping, vaginal bleeding, Pertinent negatives: constipation, diarrhea, dyspareunia, dysuria, fever, hematuria, nausea, urinary frequency, vaginal discharge, vomiting. Severity of symptoms: At their worst the symptoms were moderate, in the emergency department the symptoms are unchanged. The patient's method of control includes tubal ligation. Historical: - Allergies: 11:01 Levaquin; ss 11:01 Rocephin; ss 11:01 CEPHALOSPORINS; ss - PMHx: 11:01 Kidney stones; ss - PSHx: 11:01 Lithotripsy; c section; Cholecystectomy; Hernia repair; ss - Immunization history:: Adult Immunizations Flu vaccine is not up to date. - Social history:: Smoking status: Patient uses tobacco products, smokes one-half pack cigarettes per day. - Ebola Screening: : Patient denies exposure to infectious person Patient denies travel to an Ebola-affected area in the 21 days before illness onset. ROS: 11:25 Constitutional: Negative for fever, chills, and weight loss, Cardiovascular: Negative kb for chest pain, palpitations, and edema, Respiratory: Negative for shortness of breath, cough, wheezing, and pleuritic chest pain, Abdomen/GI: Negative for abdominal pain, nausea, vomiting, diarrhea, and constipation, MS/Extremity: Negative for injury and deformity, Skin: Negative for injury, rash, and discoloration, Neuro: Negative for headache, weakness, numbness, tingling, and seizure. 11:25 : Positive for vaginal bleeding. 11:25 Abdomen/GI: Positive for abdominal cramps. kb Exam: 11:25 Constitutional: This is a well developed, well nourished patient who is awake, alert, kb and in no acute distress. Head/Face: Normocephalic, atraumatic. Neck: Trachea midline, no thyromegaly or masses palpated, and no cervical lymphadenopathy. Supple, full range of motion without nuchal rigidity, or vertebral point tenderness. No Meningismus. Chest/axilla: Normal chest wall appearance and motion. Nontender with no deformity. No lesions are appreciated. Cardiovascular: Regular rate and rhythm with a normal S1 and S2. No gallops, murmurs, or rubs. Normal PMI, no JVD. No pulse deficits. Respiratory: Lungs have equal breath sounds bilaterally, clear to auscultation and percussion. No rales, rhonchi or wheezes noted. No increased work of breathing, no retractions or nasal flaring. Abdomen/GI: Soft, non-tender, with normal bowel sounds. No distension or tympany. No guarding or rebound. No evidence of tenderness throughout. Back: No spinal tenderness. No costovertebral tenderness. Full range of motion. Skin: Warm, dry with normal turgor. Normal color with no rashes, no lesions, and no evidence of cellulitis. MS/ Extremity: Pulses equal, no cyanosis. Neurovascular intact. Full, normal range of motion. Neuro: Awake and alert, GCS 15, oriented to person, place, time, and situation. Cranial nerves II-XII grossly intact. Motor strength 5/5 in all extremities. Sensory grossly intact. Cerebellar exam normal. Normal gait. Vital Signs: 11:01 BP 132 / 79; Pulse 99; Resp 15; Temp 98.1(O); Pulse Ox 100% on R/A; Weight 63.5 kg; ss Height 5 ft. 3 in. (160.02 cm); Pain 5/10; 13:25 BP 122 / 69; Pulse 87; Resp 18; Pulse Ox 99% on R/A; ph 14:40 BP 118 / 78; Pulse 85; Resp 18; Temp 97.9; Pulse Ox 99% on R/A; ph 11:01 Body Mass Index 24.80 (63.50 kg, 160.02 cm) MDM: 11:04 Patient medically screened. kb 11:25 Data reviewed: vital signs, nurses notes. Data interpreted: Pulse oximetry: on room air kb is 100 %. Interpretation: normal. 13:20 Counseling: I had a detailed discussion with the patient and/or guardian regarding: the kb historical points, exam findings, and any diagnostic results supporting the discharge/admit diagnosis, lab results, radiology results, the need for outpatient follow up, an OB/Gyne specialist, to return to the emergency department if symptoms worsen or persist or if there are any questions or concerns that arise at home. 06/11 11:04 Order name: Basic Metabolic Panel; Complete Time: 12:49 kb 06/11 11:04 Order name: CBC with Diff; Complete Time: 13:30 kb 06/11 11:04 Order name: Type And Screen; Complete Time: 13:24 kb 06/11 11:22 Order name: Urine --Ancillary (enter results); Complete Time: 12:06 kb 06/11 11:22 Order name: Urine Dipstick--Ancillary (enter results); Complete Time: 12:06 kb 06/11 12:58 Order name: CBC Smear Scan; Complete Time: 13:30 EDMS 06/11 11:04 Order name: Urine Test (obtain specimen); Complete Time: 12:44 kb 06/11 11:04 Order name: IV Saline Lock; Complete Time: 12:44 kb 06/11 11:04 Order name: Labs collected and sent; Complete Time: 12:44 kb 06/11 11:04 Order name: NPO; Complete Time: 12:43 kb 06/11 11:22 Order name: US Transvaginal Study (Probe); Complete Time: 12:25 kb 06/11 13:51 Order name: ABO/RH no charge EDNC 06/11 11:04 Order name: Urine Dipstick-Ancillary (obtain specimen); Complete Time: 12:43 kb 06/11 12:49 Order name: Labs - recollect needed; Complete Time: 13:02 bd Administered Medications: 13:38 Drug: Potassium Chloride 40 mEq Route: PO; ph 14:30 Follow up: Response: No adverse reaction sg 13:38 Drug: NS 0.9% 1000 ml Route: IV; Rate: 1000 ml; Site: right antecubital; ph 14:32 Follow up: Response: No adverse reaction; IV Status: Completed infusion; IV Intake: sg 1000ml Disposition: 18:02 Co-signature as Attending Physician, Carlos Alberto Rivera MD. rn Disposition: 06/11/18 13:21 Discharged to Home. Impression: Abnormal uterine and vaginal bleeding, unspecified. - Condition is Stable. - Discharge Instructions: Abnormal Uterine Bleeding, [id number]. - Medication Reconciliation Form, Thank You Letter, Antibiotic Education, Prescription Opioid Use, Work release form form. - Follow up: Emergency Department; When: As needed; Reason: Worsening of condition. Follow up: Private Physician; When: 2 - 3 days; Reason: Recheck today's complaints, Continuance of care, Re-evaluation by your physician. Signatures: Dispatcher [employer] EDMS Oneyda Sorensen, POTTERY KILN BUILDER-C POTTERY KILN BUILDER-Ckb Kathrin Irving Roman, MD MD rn Smirch, Shelby, RN RN Milka Whalen RN RN [facility], Jorge Alberto AMATO sg Corrections: (The following items were deleted from the chart) 11:25 11:25 Constitutional: Negative for fever, chills, and weight loss, Cardiovascular: kb Negative for chest pain, palpitations, and edema, Respiratory: Negative for shortness of breath, cough, wheezing, and pleuritic chest pain, Abdomen/GI: Negative for abdominal pain, nausea, vomiting, diarrhea, and constipation, MS/Extremity: Negative for injury and deformity, Skin: Negative for injury, rash, and discoloration, Neuro: Negative for headache, weakness, numbness, tingling, and seizure, kb 14:41 13:21 06/11/2018 13:21 Discharged to Home. Impression: Abnormal uterine and vaginal ph bleeding, unspecified. Condition is Stable. Forms are Medication Reconciliation Form, Thank You Letter, Antibiotic Education, Prescription Opioid Use. Follow up: Emergency Department; When: As needed; Reason: Worsening of condition. Follow up: Private Physician; When: 2 - 3 days; Reason: Recheck today's complaints, Continuance of care, Re-evaluation by your physician. kb
--- NOTE | 2018-06-11 13:21 | ER ---
Nurse's Notes [facility] Name: Caitlyn Dawn Age: 37 yrs Sex: Female : 1980 Arrival Date: 06/11/2018 Time: 10:49 Bed 5 Private MD: Diagnosis: Abnormal uterine and vaginal bleeding, unspecified Presentation: 06/11 10:58 Presenting complaint: Patient states: "I started my period on 05/28, and I'm still ss bleeding and it's getting worse. This has never happened before and my tubes are tied.". Transition of care: patient was not received from another setting of care. Onset of symptoms was May 11, 2018. Risk Assessment: Do you want to hurt yourself or someone else? Patient reports no desire to harm self or others. Initial Sepsis Screen: Does the patient meet any 2 criteria? No. Patient's initial sepsis screen is negative. Does the patient have a suspected source of infection? No. Patient's initial sepsis screen is negative. Care prior to arrival: None. 10:58 Method Of Arrival: Ambulatory ss 10:58 Acuity: MARCELLUS 3 ss Historical: - Allergies: 11:01 Levaquin; ss 11:01 Rocephin; ss 11:01 CEPHALOSPORINS; ss - PMHx: 11:01 Kidney stones; ss - PSHx: 11:01 Lithotripsy; c section; Cholecystectomy; Hernia repair; ss - Immunization history:: Adult Immunizations Flu vaccine is not up to date. - Social history:: Smoking status: Patient uses tobacco products, smokes one-half pack cigarettes per day. - Ebola Screening: : Patient denies exposure to infectious person Patient denies travel to an Ebola-affected area in the 21 days before illness onset. Screenin:16 Abuse screen: Denies threats or abuse. Denies injuries from another. Nutritional ph screening: No deficits noted. Tuberculosis screening: No symptoms or risk factors identified. Fall Risk None identified. Assessment: 11:20 General: Appears in no apparent distress. comfortable, slender, well groomed, Behavior ph is calm, cooperative, appropriate for age, Denies fever, feeling ill, fatigue. Pain: Complains of pain in suprapubic area. Neuro: Level of Consciousness is awake, alert, obeys commands, Oriented to person, place, time, situation. Neuro: Denies weakness dizziness. Cardiovascular: Capillary refill < 3 seconds in bilateral fingers Patient's skin is warm and dry. Respiratory: Airway is patent Respiratory effort is even, unlabored, Respiratory pattern is regular, symmetrical, Denies shortness of breath. GI: Patient currently denies diarrhea, nausea, vomiting. : Reports cramping, in bilateral lower quadrant(s) vaginal bleeding that is bright red, moderate flow, Denies burning with urination, urinary frequency. Derm: Skin is intact, is healthy with good turgor, Skin is pink, warm \\T\\ dry. Musculoskeletal: Circulation, motion, and sensation intact. Range of motion: intact in all extremities. 13:25 Reassessment: Patient appears in no apparent distress at this time. Patient and/or ph family updated on plan of care and expected duration. Pain level reassessed. Patient is alert, oriented x 3, equal unlabored respirations, skin warm/dry/pink. Awaiting completion of IV fluids prior to d/c. 14:40 Reassessment: Patient appears in no apparent distress at this time. Patient and/or ph family updated on plan of care and expected duration. Pain level reassessed. Patient is alert, oriented x 3, equal unlabored respirations, skin warm/dry/pink. Pt instructed to follow up w/ [employer] PATH THERAPIST, d/c home. Vital Signs: 11:01 BP 132 / 79; Pulse 99; Resp 15; Temp 98.1(O); Pulse Ox 100% on R/A; Weight 63.5 kg; ss Height 5 ft. 3 in. (160.02 cm); Pain 5/10; 13:25 BP 122 / 69; Pulse 87; Resp 18; Pulse Ox 99% on R/A; ph 14:40 BP 118 / 78; Pulse 85; Resp 18; Temp 97.9; Pulse Ox 99% on R/A; ph 11:01 Body Mass Index 24.80 (63.50 kg, 160.02 cm) ED Course: 10:49 Patient arrived in ED. as 10:59 Triage completed. ss 11:01 Arm band placed on right wrist. ss 11:04 Oneyda Sorensen F[facility]-C [facility]. kb 11:04 Carlos Alberto Rivera MD is Attending Physician. kb 11:55 Milka Whalen RN is Primary Nurse. ph 11:55 US Transvaginal Study (Probe) In Process Unspecified. EDMS 12:16 No provider procedures requiring assistance completed. Inserted saline lock: 22 gauge ph in right antecubital area, using aseptic technique. Blood collected. 12:17 Patient has correct armband on for positive identification. Placed in gown. Bed in low ph position. Call light in reach. Side rails up X 1. Pulse ox on. NIBP on. Warm blanket given. 14:41 IV discontinued, intact, bleeding controlled, No redness/swelling at site. Pressure ph dressing applied. Administered Medications: 13:38 Drug: Potassium Chloride 40 mEq Route: PO; ph 14:30 Follow up: Response: No adverse reaction sg 13:38 Drug: NS 0.9% 1000 ml Route: IV; Rate: 1000 ml; Site: right antecubital; ph 14:32 Follow up: Response: No adverse reaction; IV Status: Completed infusion; IV Intake: sg 1000ml Intake: 14:32 IV: 1000ml; Total: 1000ml. sg Outcome: 13:21 Discharge ordered by . kb 14:41 Discharged to home ambulatory, with friend. ph 14:41 Condition: good 14:41 Discharge instructions given to patient, Instructed on discharge instructions, follow up and referral plans. Demonstrated understanding of instructions, follow-up care. 14:41 Patient left the ED. ph Signatures: Dispatcher [employer] EDND Oneyda Sorensen, MILITARY PAY TECHNICIAN-C MILITARY PAY TECHNICIAN-Jorge Alberto Hall RN RN Rashmi Rodas Shelby, RN RN Milka Whalen RN RN ph
[2018-06-11 13:27] LABS: Platelet Estimate INCR; Urine White Blood Cell Casts OK
[2018-06-11 13:28] LABS: Anisocytosis 2+; Blood Morphology Comment NOTED (NOT SEEN); Hypochromasia 1+; Poikilocytosis 1+
[2018-06-11 15:02] VITALS: O2SAT 99
[2018-06-11 15:04] VITALS: BP 118/78; TEMP 97.9
== END 2018-06-11 14:41 | disposition home or self-care (01) ==
LOC: ER 10:46
DX: N93.9 Abnormal uterine and vaginal bleeding, unspecified (principal); F17.210 Nicotine dependence, cigarettes, uncomplicated; Z88.1 Allergy status to other antibiotic agents
CPT/HCPCS: 36415; 76830; 80048; 81003; 81025; 85025; 86850; 86900; 86901; 96360; 99284

== ENCOUNTER 2019-06-24 12:00 | Emergency (ER) | payer BC, SELFPAY ==
--- OUTSIDE RECORDS SUMMARY | 2019-06-24 12:03 | XMS REPORT ---
:1980 [facility] Address [address] [place] [id number] Care Team Providers Name Role Phone Reny Siegel Unavailable Unavailable Problems This patient has no known problems. Allergies, Adverse Reactions, Alerts This patient has no known allergies or adverse reactions. Medications This patient has no known medications. Encounters Start End Encounter Admission Attending Care Care Encounter Date/Time Date/Time Type Type Clinicians Facility Department ID 2017-08-23 2017-08-23 Outpatient TANESHA Siegel [id number] 08:15:00 08:15:00 Reny 2017-08-22 2017-08-22 Outpatient TANESHA Siegel [id number] 14:38:00 14:38:00 Reny
--- NOTE | 2019-06-24 14:25 | RAD REPORT ---
EXAM DESCRIPTION: CT - Head Brain Wo Cont - 06/24/2019 2:18 pm CLINICAL HISTORY: HEADACHE Headache, drowsiness COMPARISON: No comparisons TECHNIQUE: All CT scans are performed using dose optimization technique as appropriate and may inclu de automated exposure control or mA/KV adjustment according to patient size. FINDINGS: No intracranial hemorrhage, hydrocephalus or extra-axial fluid collection.No areas of brai n edema or evidence of midline shift. The paranasal sinuses and mastoids are clear. The calvarium is intact. IMPRESSION: No acute intracranial abnormality.
[2019-06-24] MEDS ORDERED: METOCLOPRAMIDE 10 MG/2mL INJ ONE (14:34)
[2019-06-24] MEDS ORDERED: MEPERIDINE HCL 25 MG/0.5 ML ONE (14:34)
[2019-06-24] MEDS ORDERED: NA CHLORIDE 0.9% 1,000 ML ONE (14:35)
[2019-06-24] MEDS ORDERED: NA CHLORIDE 0.9% 50 ML IV ONE (14:35)
[2019-06-24] MEDS ORDERED: dexAMETHasone 10 MG/ML VIAL ONE (14:35)
--- NOTE | 2019-06-24 15:51 | ER ---
Nurse's Notes [facility] Name: Caitlyn Dawn Age: 39 yrs Sex: Female : 1980 Arrival Date: 06/24/2019 Time: 12:03 Bed 23 Private MD: Diagnosis: Headache Presentation: 06/23 12:12 Chief complaint: Patient states: Headache since 2 weeks ago. Face hurts, pressure ca1 behind eyes, pain on both ears. Reports dizziness and nausea. Denies vomiting and fever. "Wants to visit a doctor but my insurance will take effect on the 08 of July". Coronavirus screen: The patient has NOT traveled to a country currently being monitored by the [facility] within the last 14 days. The patient has NOT had contact with any known and/or suspected case of coronavirus. Ebola Screen: Patient negative for fever greater than or equal to 101.5 degrees Fahrenheit, and additional compatible Ebola Virus Disease symptoms Patient denies exposure to infectious person. Patient denies travel to an Ebola-affected area in the 21 days before illness onset. No symptoms or risks identified at this time. Initial Sepsis Screen: Does the patient meet any 2 criteria? No. Patient's initial sepsis screen is negative. Does the patient have a suspected source of infection? No. Patient's initial sepsis screen is negative. Risk Assessment: Do you want to hurt yourself or someone else? Patient reports no desire to harm self or others. Onset of symptoms was June 24, 2019. 12:12 Method Of Arrival: Ambulatory ca1 12:12 Acuity: MARCELLUS 3 ca1 Triage Assessment: 13:45 Headache History: The patient has had previous headaches and this one is more severe vc than previous episodes. General: Appears in no apparent distress. comfortable, Behavior is calm, cooperative, appropriate for age. Pain: Pain currently is 8 out of 10 on a pain scale. Pain began gradually, Also complains of photophobia, sleeplessness. SIEBEL CRM DEVELOPER: 15:00 LMP 06/19/2019 vc Historical: - Allergies: 12:16 CEPHALOSPORINS; ca1 12:16 Levaquin; ca1 12:16 Rocephin; ca1 - PMHx: 12:16 Kidney stones; ca1 - PSHx: 12:16 Lithotripsy; c section; Cholecystectomy; Hernia repair; ca1 - Immunization history:: Adult Immunizations up to date. - Social history:: Smoking status: Patient denies any tobacco usage or history of. - Family history:: not pertinent. - Hospitalizations: : No recent hospitalization is reported. Screenin:45 Abuse screen: Denies threats or abuse. Nutritional screening: No deficits noted. vc Tuberculosis screening: No symptoms or risk factors identified. Fall Risk None identified. Assessment: 13:45 General: Appears in no apparent distress. comfortable, Behavior is calm, cooperative, vc appropriate for age. Pain: Complains of pain in HEADACHE. Neuro: Level of Consciousness is awake, alert, obeys commands, Oriented to person, place, time, situation, Appropriate for age. Cardiovascular: Capillary refill < 3 seconds Patient's skin is warm and dry. Respiratory: Airway is patent Respiratory effort is even, unlabored, Respiratory pattern is regular, symmetrical. GI: No signs and/or symptoms were reported involving the gastrointestinal system. : No signs and/or symptoms were reported regarding the genitourinary system. Derm: Skin temperature is warm. Musculoskeletal: Circulation, motion, and sensation intact. Range of motion: intact in all extremities. 14:45 Reassessment: Patient and/or family updated on plan of care and expected duration. Pain vc level reassessed. Patient is alert, oriented x 3, equal unlabored respirations, skin warm/dry/pink. Patient states symptoms have not improved. Vital Signs: 12:12 BP 130 / 52; Pulse 77; Resp 16 S; Temp 98.1(TE); Pulse Ox 100% on R/A; Weight 63.5 kg ca1 (R); Height 5 ft. 3 in. (160.02 cm) (R); 15:00 BP 108 / 69; Pulse 68; Resp 17; Pulse Ox 100% on R/A; vc 16:00 BP 111 / 69; Pulse 78; Resp 17; Pulse Ox 100% ; Pain 10/10; ll1 12:12 Body Mass Index 24.80 (63.50 kg, 160.02 cm) ca1 [place] Coma Score: 15:44 Eye Response: spontaneous(4). Verbal Response: oriented(5). Motor Response: obeys rn commands(6). Total: 15. ED Course: 12:03 Patient arrived in ED. rg4 12:15 Triage completed. ca1 12:16 Arm band placed on right wrist. ca1 13:45 Patient has correct armband on for positive identification. Bed in low position. Call vc light in reach. Pulse ox on. NIBP on. Noise minimized. Lights dimmed. Warm blanket given. 13:57 Carlos Alberto Rivera MD is Attending Physician. rn 14:18 CT Head Brain wo Cont In Process Unspecified. EDMS 14:19 Shanelle Ramos, LM is Primary Nurse. vc 15:50 Jose Rodriguez MD is Referral Physician. rn 16:03 No provider procedures requiring assistance completed. IV discontinued, intact, ll1 bleeding controlled, No redness/swelling at site. Pressure dressing applied. Administered Medications: 15:02 Drug: NS 0.9% 1000 ml Route: IV; Rate: 1000 ml; Site: right antecubital; vc 15:59 Follow up: Response: No adverse reaction; RASS: Alert and Calm (0); IV Status: ll1 Completed infusion; IV Intake: 700ml 15:03 Drug: Reglan 10 mg Route: IVP; Site: right antecubital; vc 15:13 Follow up: Response: No adverse reaction vc 15:03 Drug: Demerol 25 mg Route: IVP; Site: right antecubital; vc 15:12 Follow up: Response: No adverse reaction vc 15:03 Drug: Decadron - Dexamethasone 10 mg Route: IVP; Site: right antecubital; vc 15:12 Follow up: Response: No adverse reaction vc Intake: 15:59 IV: 700ml; Total: 700ml. ll1 Outcome: 15:50 Discharge ordered by . rn 16:04 Discharged to home ambulatory. ll1 16:04 Condition: good 16:04 Discharge instructions given to patient, Instructed on discharge instructions, follow up and referral plans. Demonstrated understanding of instructions, follow-up care. 16:05 Patient left the ED. ll1 Signatures: Dispatcher [employer] EDAZ Carlos Alberto Rivera MD MD rn Garcia, Rubi rg4 Samantha Brar RN RN ca1 Shanelle Ramos RN RN vc Lewis, Lynsay, RN RN ll1
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
[2019-06-24 16:48] VITALS: TEMP 98.1; O2SAT 100
[2019-06-24 16:51] VITALS: BP 111/69
[2019-06-24 20:02] LABS: Urine Blood 1+ (NEG); Urine Glucose NEGATIVE (NEG); Urine Protein NEGATIVE (NEG); Urine Specific Gravity >1.030 (1.005-1.030)
== END 2019-06-24 16:05 | disposition home or self-care (01) ==
LOC: ER 12:00
DX: R51 Headache (principal); Z88.1 Allergy status to other antibiotic agents
CPT/HCPCS: 70450; 81003; 81025; 96361; 96374; 96375; 99283; J1100; J2175; J2765; J7030

== ENCOUNTER 2020-12-16 12:31 | Emergency (ER) | payer SELFPAY ==
--- OUTSIDE RECORDS SUMMARY | 2020-12-16 12:38 | XMS REPORT | Continuity of Care Document ---
:1980 Author Organization [facility] t Address [address] [place] [address] Care Team Providers Name Role Phone Swapna Attending Clinician Julian Laureano Attending Clinician Keith Tuttle Attending Clinician Derrick Siegel Attending Clinician Unavailable Jovanny Gonzales Attending Clinician Reny Harvey Attending Clinician Serg Nino Attending Clinician Orestes Attending Clinician Swapna Admitting Clinician Julian Laureano Admitting Clinician Orestes Admitting Clinician Problems Condition Condition Condition Status Onset Resolution Last Treating Co mments Source Name Details Category Date Date Treatment Clinician Date COVID-19 Covid-19 Problem Active [facility] [facility] 8-29 da 00:00: Medical 00 Group POSSIBLE Diagnosis Active 2015-05-23 M emoria KIDNEY 2-14 15:23:00 l STONES POSSIBLE 13:00: Royal n KIDNEY 00 STONES Active 05/23/2015 [facility] URINARY Diagnosis Active 2014-09-29 Me moria PROBLEM - 00:48:00 l URINARY 00:00: Oscar PROBLEM 00 Active 09/28/2014 [facility] Ureteric Problem Active 2013-042018-06-02 Mem oria stone 0-01 14:22:23 l (disorder) Ureteric 00:00: Slade rmann stone 00 (disorder) Active 01/07/2014 Problem 06/02/2018 Data migrated from [facility] on 09/05/14. MH OPID Star,MH Star LOWER Diagnosis Active 2013-12-29 Mem oria RIGHT SIDE 12-28 04:09:00 l ABDOMINAL LOWER 00:00: Royal n PAIN RIGHT SIDE 00 ABDOMINAL PAIN Active 12/28/2013 Star RENAL Diagnosis Active 2013-12-29 Mem oria STONE 12-28 18:23:00 l RENAL 00:00: [place] STONE 00 Active 12/28/2013 Star FAST HEART Diagnosis Active 2011-11-01 Memoria RATE 10-21 11:18:00 l FAST 00:00: [place] HEART RATE 00 Active 10/22/2011 Star CHEST PAIN Diagnosis Active 2011-11-01 Memoria 7-12 11:18:00 l CHEST 00:00: Oscar PAIN 00 Active 10/19/2011 Star Acute Acute Problem Active [place] sinusitis Sinusitis [facility] Allergic Allergic Problem Active [place] [facility] rhinitis Rhinitis [facility] Urinary Urinary Problem Active [place] tract Tract da infectious Infectious Me dical disease Disease Group Diaphragma Problem 2018-06-02 M emoria tic hernia 14:22:23 l 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 06/02/2018 Star Gastro-eso Problem 2018-05-28 M emoria phageal 13:05:16 l reflux [place] disease Gastro-eso with phageal esophagiti reflux s disease with esophagiti s 05/28/2018 Star Chronic Problem 2018-05-28 Lucio hanane cholecysti 13:05:16 l tis Chronic Oscar cholecysti tis 05/28/2018 Star Gastro-eso Problem 2018-05-24 M emoria phageal 12:43:07 l reflux [place] disease Gastro-eso without phageal esophagiti reflux s disease without esophagiti s 05/24/2018 Star Personal Problem 2018-06-02 Mem oria history of 14:22:23 l nicotine Personal Herm chayito dependence history of nicotine dependence 06/02/2018 Star Ileus, Problem 2018-06-02 Memor ia unspecifie 14:22:23 l d Ileus, [place] unspecifie d 06/02/2018 Star Dehydratio Problem 2018-06-02 M emoria n 14:22:23 l [place] Dehydratio n 06/02/2018 Star Anemia in Problem 2018-06-02 Me moria other 14:22:23 l chronic Anemia [place] diseases in other classified chronic elsewhere diseases classified elsewhere 06/02/2018 Star Abdominal Problem Active 2018-06-02 Me moria pain 14:22:23 l (finding) [place] Abdominal pain (finding) Active Problem 06/02/2018 right side abdominal pain Star Gastroesop Problem Active 2018-06-02 M emoria hageal 14:22:23 l reflux Oscar disease Gastroesop (disorder) hageal reflux disease (disorder) Active Problem 06/02/2018 Star Hiatal Problem Active 2018-06-02 Memor ia hernia 14:22:23 l (disorder) Hiatal Herm chayito hernia (disorder) Active Problem 06/02/2018 Star CALCULUS Diagnosis Active 2013-12-29 M emoria OF KIDNEY 18:23:00 l CALCULUS Royal n OF KIDNEY Active Star History of Past Illness Condition Condition Condition Status Onset Resolution Last Treating Co mments Source Name Details Category Date Date Treatment Clinician Date Other Problem 2017-2018-06-02 2018-06-02 M emoria postproced 8- 14:22:23 14:22:23 l ural Other 03:48: [place] complicati postproced 40 ons and ural disorders complicati of ons and digestive disorders system of digestive system 11/23/2017 06/02/2018 Star Urinary Problem 2017-2018-05-24 2018-05-24 Memoria tract 8-03 12:43:07 12:43:07 l infection, Urinary 03:52: Her noe site not tract 00 specified infection, site not specified 11/09/2017 05/24/2018 Star Other Problem 2017-07-28 2017-07-28 M emoria malaise 1-13 14:58:38 14:58:38 l Other 06:00: Oscar malaise 00 04/21/2017 07/28/2017 Star Discharge Problem 2015-05-26 2015-05-26 Memoria Diagnosis: 2-14 01:35:24 01:35:24 l Acute 06:00: [place] lower UTI Discharge 00 Diagnosis: Acute lower UTI 05/23/2015 05/26/2015 Star Discharge Problem 2015-2015-05-26 2015-05-26 Memoria Diagnosis: 2-14 01:35:24 01:35:24 l Anemia 06:00: Oscar Discharge 00 Diagnosis: Anemia 05/23/2015 05/26/2015 Star Discharge Problem 2015-2015-05-26 2015-05-26 Memoria Diagnosis: 2-14 01:35:24 01:35:24 l Acute 06:00: Oscar gastritis Discharge 00 Diagnosis: Acute gastritis 05/23/2015 05/26/2015 Star Discharge Problem 2014-10-02 2014-10-02 Memoria Diagnosis: - 02:26:59 02:26:59 l Acute 05:00: [place] urinary Discharge 00 tract Diagnosis: infection Acute urinary tract infection 09/29/2014 10/02/2014 Star Allergies, Adverse Reactions, Alerts Allergy Allergy Status Severity Reaction(s) Onset Inactive Treating Comm ents Source Name Type Date Date Clinician Ceftin Allergy Active Itching [facility] Ceftin Ceftin Active Memoria l [place] Levaquin Levaquin Active Memori a l [place] Rocephin Rocephin Active Memori a l [place] cephalos cephalos Active Memori a porins porins l [place] Vicodin Vicodin Active Memoria l [place] Levaquin Allergy Active Itching [facility] ROCEPHIN Allergy Active Severe Rash [place] [facility] SULFA Allergy Active [facility] ANTIBIOT e Group ICS) Social History Social Habit Start Date Stop Date Quantity Comments Source Social History 2017-11-01 2017-11-01 [facility] Brynn salgado 17:04:06 17:04:06 Smoking Status Start Date Stop Date Source [facility] Medications Ordered Filled Start Stop Current Ordering Indication Dosage Frequency Signature Comments Components Source Medication Medication Date Date Medication? Clinician (SIG) Name Name Ondansetron Yes 4 mg = 1 Me moria 4 MG Oral 8-07 tab, PO, l Tablet 20:18: Q8H, PRN [place] [Zofran] 00 Nausea, # 15 tab, 0 Refill(s) Acetaminoph Yes 1 tab, PO, Memoria en 325 MG / 11-13 Q6H, PRN l Hydrocodone 20:18: Pain Score [place] Bitartrate 00 1-3, 0 5 MG Oral Refill(s) Tablet [[place] 5/325] Acetaminoph No Notes: Lucio hanane en 325 MG / 11-13 (Same as: l Hydrocodone 01:02: [place] Neelima nn Bitartrate 00 325/5) Do 5 MG Oral not exceed Tablet 4gm/day of [[place] acetaminop 5/325] hen. Saline No Notes: Memoria Flush 0.9% 11-11 (Same as: l 20:47: BD Oscar 00 Posiflush) Ondansetron No Notes: Lucio hanane 11-11 (Same as: l 20:47: Zofran) MEDICATION WASTE Product Size: 4 mg Product Wasted: ___ mg Morphine No 2 mg, 1 Memori a -05 mL, Route: l 20:47: IVP, Drug form: SOLN, Q4H, Dosing Weight 67.841, kg, PRN Pain Score 7-10, Start date: 11/11/17 15:47:00 CDT, Duration: 30 day, Stop date: 12/11/17 15:46:00 CDT Sodium No 1,000 mL, Memori a Chloride 11-11 Rate: 100 l 0.9% IV 20:47: ml/hr, Oscar 1,000 mL 00 Infuse over: 10 hr, Route: IV, Dosing Weight 67.841 kg, Total Volume: 1,000, Start date: 11/11/17 15:47:00 CDT, Duration: 30 day, Stop date: 12/11/17 15:46:00 CDT, 1.76, m2 Acetaminoph No Notes: Do M emoria en 11-11 not exceed l 20:47: 4 gm/day. (Same as: Tylenol) Morphine No 4 mg, Memoria 11-11 Route: l 17:28: IVP, ONCE, Dosing Weight 67.841, kg, Priority: STAT, Start date: 11/11/17 12:28:00 CDT, Stop date: 11/11/17 12:28:00 CDT Omnipaque 2018-0 No 45 Memoria 350 8-05 mL/min, l injectable 16:18: STAT, Royal n solution Start date: 11/11/17 11:18:00 CDT, Duration: 1 doses or times Sodium 2018-0 No 1,000 mL, Memori a Chloride 11-11 Infuse l 0.9% 15:47: Over: 1 [place] (Bolus) IV 00 hr, Route: IV, ONCE, Priority: STAT, Dosing Weight 67.841 kg, Start date: 11/11/17 10:47:00 CDT, Stop date: 11/11/17 10:47:00 CDT Zofran 2018-0 No 4 mg, Memoria 11-11 Route: l 15:47: IVP, Drug form: INJ, ONCE, Dosing Weight 67.841, kg, Priority: STAT, Start date: 11/11/17 10:47:00 CDT, Stop date: 11/11/17 10:47:00 CDT Morphine 2018-0 No 4 mg, Memoria 11-11 Route: l 15:47: IVP, ONCE, [place] Dosing Weight 67.841, kg, Priority: STAT, Start date: 11/11/17 10:47:00 CDT, Stop date: 11/11/17 10:47:00 CDT Saline 2018-0 No Notes: Memoria Flush 0.9% 11-11 (Same as: l 15:14: BD [place] 00 Posiflush) Sulfamethox 0 No 1 tab, PO, Memoria azole 800 8-02 BID, X 7 l MG / 16:27: day, # 14 Oscar Trimethopri 00 tab, 0 m 160 MG Refill(s) Oral Tablet [Bactrim] Acetaminoph 0 No 1 tab, PO, Memoria en 300 MG / 02 Q4H, PRN l Codeine 16:27: Pain, X 7 Neelima nn Phosphate 00 day, # 30 30 MG Oral tab, 0 Tablet Refill(s) [Tylenol with Codeine #3] Lovenox 0 No Notes: Memoria 11-08 (Same as: l 14:00: Lovenox) ketOROLAC No 4 days Memor ia 30 mg/mL 11-07 l injectable 17:00: MEDICATION H ermann solution WASTE Product Size: 30 mg Product Wasted: ___ mg Ondansetron No Notes: Lucio hanane 11-07 (Same as: l 16:33: Zofran) MEDICATION WASTE Product Size: 4 mg Product Wasted: ___ mg Oxycodone No Notes: Memori a 11-07 (Same as: l 16:33: Roxicodone ) Naloxone No Notes: Memoria 11-07 Same as l 16:33: Narcan Flumazenil No Notes: Memor ia 11-07 (Same as: l 16:33: Romazicon) Hydromorpho No Notes: Lucio hanane ne 11-07 Same as: l 15:43: Dilaudid Ondansetron No Notes: Lucio hanane 11-07 (Same as: l 15:43: Zofran) MEDICATION WASTE Product Size: 4 mg Product Wasted: ___ mg Naloxone No Notes: Memoria 11-07 Same as l 15:43: Narcan Flumazenil No Notes: Memor ia 11-07 (Same as: l 15:43: Romazicon) Fentanyl No Notes: Memoria 11-07 (Same as: l 15:43: Sublimaze) Preservat janki free. neostigmine No Route: IV, Memoria (ANES) 11-07 Drug form: l 15:10: INJ, ONCE, Stop date: 11/07/17 10:10:00 CDT glycopyrrol No Route: IV, Memoria ate (ANES) 11-07 Drug form: l 15:10: INJ, ONCE, Stop date: 11/07/17 10:10:00 CDT ondansetron No Route: IV, Memoria (ANES) 11-07 Drug form: l 15:10: INJ, ONCE, Stop date: 11/07/17 10:10:00 CDT Morphine No Notes: Memoria 11-07 (Same l 14:51: as:MORPhin e Sulfate) Acetaminoph No Notes: Lucio hanane en 325 MG / 11-07 (Same as: l Hydrocodone 14:51: [place] Neelima nn Bitartrate 00 325/5) Do 5 MG Oral not exceed Tablet 4gm/day of [[place] acetaminop 5/325] hen. Zofran No Notes: Memoria 11-07 (Same as: l 14:50: Zofran) MEDICATION WASTE Product Size: 4 mg Product Wasted: ___ mg D5W 1/2NS + No Notes: Lucio hanane KCL 20mEq/L 11-07 PREMIX IV l 1000ml 14:50: - Do Not Oscar (Premix) Alter 1,000 mL WASTE: F/P - Sink; E - Municipal Trash Bin phenol No Notes: Memoria 11-07 Chlorasept l 14:50: ic [place] (Same as: Chlorasept ic, Sore Throat [place]) WASTE: F/P - Black; E - Municipal Trash Bin metoprolol No Route: IV, M emoria (ANES) 11-07 Drug form: l 14:38: INJ, ONCE, Stop date: 11/07/17 9:38:00 CDT hydromorpho No Route: IV, Memoria ne (ANES) 11-07 Drug form: l 14:28: INJ, ONCE, Stop date: 11/07/17 9:28:00 CDT dexamethaso No Route: IV, Memoria ne (ANES) 11-07 Drug form: l 14:08: INJ, ONCE, Stop date: 11/07/17 9:08:00 CDT metoclopram No Route: IV, Memoria liane (ANES) 11-07 Drug form: l 14:03: INJ, ONCE, Stop date: 11/07/17 9:03:00 CDT rocuronium 2017-0 No Route: IV, Jaylen mastria (ANES) 11-07 Drug form: l 14:03: INJ, ONCE, Stop date: 11/07/17 9:03:00 CDT midazolam 2017-0 No Route: IV, moria (ANES) 11-07 Drug form: l 14:03: SOLN, ONCE, Stop date: 11/07/17 9:03:00 CDT fentaNYL 2017-0 No Route: IV, Mem oria (ANES) 11-07 Drug form: l 14:03: INJ, ONCE, Stop date: 11/07/17 9:03:00 CDT lidocaine No Route: IV, moria (ANES) 11-07 Drug form: l 14:03: INJ, ONCE, Stop date: 11/07/17 9:03:00 CDT propofol 2017-0 No Route: IV, Mem oria (ANES) 11-07 Drug form: l 14:03: INJ, ONCE, Stop date: 11/07/17 9:03:00 CDT Sodium No Route: IV, Memor ia Chloride 11-07 Drug form: l 0.9% IV 13:27: INJ, Start Herm chayito (ANES) 50 00 date: mL + 11/07/17 clindamycin 8:27:00 (ANES) 150 CDT, Stop mg date: 11/07/17 9:27:00 CDT Lactated No Route: IV, Mem oria Ringers 11-07 Total l Injection 13:10: Volume: Neelima nn IV (ANES) 00 1,000, 1000 mL Start date: 11/07/17 8:10:00 CDT, Stop date: 11/07/17 9:10:00 CDT Tylenol No 1,000 mg, Memor ia 11-07 Route: PO, l 12:00: PRE OP, Dosing Weight 68.182, kg, Start date: 11/07/17 7:00:00 CDT, Duration: 30 day, Stop date: 12/07/17 6:59:00 CDT Celebrex No 400 mg, Memori a 8-01 Route: PO, l 12:00: Drug form: Oscar 00 CAP, PRE OP, Dosing Weight 68.182, kg, Start date: 11/07/17 7:00:00 CDT, Duration: 30 day, Stop date: 12/07/17 6:59:00 CDT gabapentin 2018- No 300 mg, 1 Me moria 300 MG Oral 11-07 cap, l Capsule 12:00: Route: PO, Herm chayito 00 PRE OP, Dosing Weight 68.182, kg, Start date: 11/07/17 7:00:00 CDT, Duration: 30 day, Stop date: 12/07/17 6:59:00 CDT Lidocaine No Notes: Memori a Hydrochlori 11-07 Preservati l de 10 MG/ML 12:00: ve free. He rmann Injectable (Same as: Solution Xylocaine MPF) Famotidine No Notes: Memor ia 11-07 (Same as: l 12:00: Pepcid) Oscar 00 Calcium No 1,000 mL, Memor ia Chloride 11-07 Rate: 25 l 0.0014 11:12: ml/hr, Oscar MEQ/ML / 00 Infuse Potassium over: 40 Chloride hr, Route: 0.004 IV, Dosing MEQ/ML / Weight Sodium 68.182 kg, Chloride Total 0.103 Volume: MEQ/ML / 1,000, Sodium Start Lactate date: 0.028 11/07/17 MEQ/ML 6:12:00 Injectable CDT, Solution Duration: 30 day, Stop date: 12/07/17 6:11:00 CDT, 1.76, m2 Cleocin HCl No 900 mg, 50 Memoria 8- mL, Route: l 10:00: IVPB, Drug form: INJ, PRE OP, Start date: 11/07/17 5:00:00 CDT, Duration: 30 day, Stop date: 12/07/17 4:59:00 CDT, ABX Indication : Surgical Prophylaxi s Acetaminoph No 1 - 2 tab, Memoria en 300 MG / 7-29 PO, Q4H, l Codeine 22:27: PRN Pain, Neelima nn Phosphate 00 X 2 day, # 30 MG Oral 12 tab, 0 Tablet Refill(s) [Tylenol with Codeine #3] ciprofloxac No 500 mg = 1 Memoria in 500 mg 11-04 tab, PO, l oral tablet 22:15: Q12H, X 7 H erm day, # 14 tab, 0 Refill(s) Cipro No 500 mg, Memoria 11-04 Route: PO, l 22:13: ONCE, Dosing Weight 68.182, kg, Priority: STAT, Start date: 11/04/17 17:13:00 CDT, Stop date: 11/04/17 17:13:00 CDT, ABX Indication : Urinary Tract Infection Sulfamethox No Notes: One Memoria azole 800 11-04 DS tablet l MG / 22:10: = [place] Trimethopri 00 trimethopr m 160 MG im 160mg + Oral Tablet sulfametho [Bactrim] xazole 800 mg Dose based on trimethopr im component On empty stomach with a glass of water. (Same As: Bactrim DS, Septra DS) Ketorolac No 4 days Memor ia 11-04 l 19:34: MEDICATION WASTE Product Size: 30 mg Product Wasted: ___ mg Saline No Notes: Memoria Flush 0.9% 11-04 (Same as: l 19:34: BD Posiflush) Sodium No 1,000 mL, Memori a Chloride 11-04 1000 l 0.9% 19:34: ml/hr, Oscar (Bolus) IV 00 Infuse Over: 1 hr, Route: IV, 1,000, Drug form: INJ, ONCE, Priority: STAT, Dosing Weight 68.182 kg, Start date: 11/04/17 14:34:00 CDT, Stop date: 11/04/17 14:34:00 CDT Ranitidine No 75 mg = 1 Me moria 75 MG Oral 7 tab, PO, l Tablet 16:48: Daily, 0 Oscar [Zantac] 00 Refill(s) Fluconazole Yes 150 mg = 1 Memoria 150 MG Oral 1-13 tab, PO, l Tablet 15:28: ONCE, # 1 Royal n [Diflucan] 00 tab, 0 Refill(s) Benadryl No Notes: Memoria -13 (Same as: l 14:03: Benadryl) [place] Rocephin No Notes: Memoria - (Same As: l 14:03: Rocephin). Oscar Use with 100 mL NS and infuse over 30 min MEDICATION WASTE Product Size: 1000 mg Product Wasted: ___ mg Sodium No 1,000 mL, Memori a Chloride 04-21 1000 l 0.9% 14:01: ml/hr, Oscar (Bolus) IV 00 Infuse Over: 1 hr, Route: IV, 1,000, Drug form: INJ, ONCE, Priority: STAT, Dosing Weight 70.455 kg, Start date: 04/21/17 8:01:00 FINANCE ANALYST, Stop date: 04/21/17 8:01:00 FINANCE ANALYST Saline No Notes: Memoria Flush 0.9% 04-21 (Same as: l 14:01: BD [place] 00 Posiflush) tramadol Yes 50 mg = 1 Lucoi hanane hydrochlori 2-14 tab, PO, l de 50 MG 21:39: BID, X 15 Herm chayito Oral Tablet 00 day, # 30 tab, 0 Refill(s) Nitrofurant Yes 100 mg = 1 Memoria oin 100 MG 2-14 cap, PO, l Oral 21:38: BID, X 7 [place] Capsule 00 day, # 14 [Macrobid] cap, 0 Refill(s) ferrous Yes 325 mg = 1 Lucio hanane sulfate 325 2-14 tab, PO, l mg oral 21:38: Daily, # Royal n enteric 00 30 tab, 0 coated Refill(s) tablet omeprazole Yes 40 mg = 1 Me moria 40 mg oral 2-14 cap, PO, l delayed 21:38: Daily, # Royal n release 00 30 cap, 0 capsule Refill(s) Morphine No 2 mg, Memoria -14 Route: l 21:23: IVP, Drug Oscar form: INJ, ONCE, Dosing Weight 70.455, kg, Priority: STAT, Start date: 05/23/15 15:23:00, Stop date: 05/23/15 15:23:00 Saline No Notes: Memoria Flush 0.9% 2-14 (Same as: l 20:16: BD [place] Posiflush) Sulfamethox Yes 1 tab, PO, Memoria azole 800 6-23 BID, X 10 l MG / 06:49: day, # 20 [place] Trimethopri 00 tab, 0 m 160 MG Refill(s) Oral Tablet [Bactrim] Clindamycin No Notes: Lucio hanane 09-29 (Same As: l 05:20: Cleocin) Oscar 00 Zofran No Notes: Memoria 09-29 (Same as: l 05:09: Zofran) Oscar 00 MEDICATION WASTE Product Size: 4 mg Product Wasted: ___ mg Morphine No Notes: Memoria 09-29 (Same l 05:09: as:MORPhin [place] 00 e Sulfate) Sodium No 1,000 mL, Memori a Chloride 09-29 1000 l 0.154 05:09: ml/hr, [place] MEQ/ML 00 Infuse Injectable Over: 1 Solution hr, Route: IV, 1,000, Drug form: INJ, ONCE, Priority: STAT, Dosing Weight 73.636 kg, Start date: 09/29/14 0:09:00, Duration: 1 doses or times, Stop date: 09/29/14 0:09:00 clindamycin Yes 300 mg = 1 Memoria 300 mg oral 12-29 cap, PO, l capsule 22:04: Q8H, # 21 Neelima nn 00 cap, 0 Refill(s) Morphine No Notes: Memoria 12-29 (Same l 18:11: as:MORPhin [place] 00 e Sulfate) Ondansetron No Notes: Lucio hanane 12-29 (Same as: l 17:58: Zofran) Flumazenil No Notes: Memor ia 12-29 (Same as: l 17:58: Romazicon) Naloxone No Notes: Memoria 12-29 Same as l 17:58: Narcan Hydromorpho No Notes: Lucio hanane ne 12-29 (Same as: l 17:58: Dilaudid) [place] Acetaminoph No Notes: Lucio hanane en 12-29 Infuse l 17:58: over 15 [place] 00 minutes Do not exceed 4gm/day of acetaminop hen solifenacin Yes 5 mg = 1 Me moria succinate 5 12-29 tab, PO, l MG Oral 17:35: Daily, # Royal n Tablet 00 30 tab, 0 [VESICARE] Refill(s) Tamsulosin Yes = 1 tab, Mem oria hydrochlori 12-29 PO, Daily, l de 0.4 MG 17:35: # 14 tab, Her noe Oral 00 0 Capsule Refill(s) [Flomax] tramadol Yes 1 - 2 Memoria hydrochlori 12-29 tabs, PO, l de 50 MG 17:35: Q4-6H, as Herm chayito Oral Tablet 00 needed for [Ultram] pain, # 30 tab, 0 Refill(s) Clindamycin Yes Notes: Lucio hanane 12-29 (Same As: l 16:33: Cleocin) Oscar 00 Lactated No 1,000 mL, Lucio hanane Ringers IV 12-29 Rate: 40 l 1,000 mL 15:41: ml/hr, [place] 00 Infuse over: 25 hr, Route: IV, Dosing Weight 71.989 kg, Total Volume: 1,000, Start date: 12/29/13 10:41:00, Duration: 1 doses or times, Stop date: 12/30/13 11:40:00 Methenamine No 2 tab, PO, Memoria 162 MG / 12-29 TID, as l Sodium 14:21: needed for Neelima nn Salicylate 00 inflammati 162.5 MG on Oral Tablet [Cystex] Saline No Notes: Memoria Flush 0.9% 12-29 (Same as: l 09:22: BD [place] Posiflush) Sodium No 1,000 mL, Memori a Chloride 12-29 Rate: 125 l 0.154 09:22: ml/hr, [place] MEQ/ML 00 Infuse Injectable over: 8 Solution hr, Route: IV, Dosing Weight 74.091 kg, Total Volume: 1,000, Start date: 12/29/13 4:22:00, Duration: 30 day, Stop date: 01/28/14 4:21:00 Morphine No Notes: Memoria 12-29 (Same l 09:22: as:MORPhin [place] e Sulfate) Ondansetron No Notes: Lucio hanane 12-29 (Same as: l 09:22: Zofran) 00 Flomax No Notes: Memoria 12-29 (Same As: l 08:04: Flomax) Oscar 00 "Do Not Crush" Ketorolac No 4 days Memor ia 12-29 l 07:49: Oscar 00 Omnipaque No Notes: Memori a 300 12-29 (Same l 07:16: as:Omnipaq ue 300). Morphine No 4 mg, Memoria 12-29 Route: l 06:37: IVP, Drug form: INJ, ONCE, Dosing Weight 74.091, kg, Priority: STAT, Start date: 12/29/13 1:37:00, Stop date: 12/29/13 1:37:00 Ondansetron No Notes: Lucio hanane 12-29 (Same as: l 05:18: Zofran) Morphine No Notes: Memoria 12-29 (Same l 05:18: as:MORPhin [place] 00 e Sulfate) Sodium No 1,000 mL, Memori a Chloride 12-29 1000 l 0.154 05:18: ml/hr, [place] MEQ/ML 00 Infuse Injectable Over: 1 Solution hr, Route: IV, 1,000, Drug form: INJ, ONCE, Priority: STAT, Dosing Weight 68.295 kg, Start date: 12/29/13 0:18:00, Duration: 1 doses or times, Stop date: 12/29/13 0:18:00 Saline No Notes: Memoria Flush 0.9% 12-29 (Same as: l 05:18: BD [place] 00 Posiflush) potassium Yes Heather 20 mEq, 1 Memoria chloride 20 7-16 [place] Landaverde tab, PO, l mEq oral 00:56: BID, 10 Royal n tablet, 35 tab, extended Substituti release on Allowed NS 1,000 mL 2011- No Heather 1,000 mL, Memoria 7-15 [place] Saima Rate: l 23:49: 1,000 Oscar 00 ml/hr, Infuse over: 1 hr, Route: IV, Dosing Weight 74.091 kg, Total Volume: 1,000, Start date: 10/22/11 18:49:00, Duration: 1 doses or times, Stop date: 10/22/11 19:48:00, Bolus DoseBolus Dose potassium No Shelise 40 mEq, 2 Memoria chloride 7-13 Nabil tab, l 14:00: Clay Route: PO, Royal n 00 Drug form: ERTAB, Daily, Priority: Routine, Start date: 10/20/11 9:00:00, Duration: 30 day, Stop date: 11/18/11 9:00:00 Bactrim DS 2011- Yes Shelise 1 tab, PO, Memoria oral tablet 7-12 Nabil BID, 10 l 19:07: Giuseppe Sommerann 24 Substituti on Allowed, Soft Stop, TAB potassium No Shelise 40 mEq, 2 Memoria chloride 7-12 Nabil tab, l 19:01: Clay Route: PO, Royal n 00 Drug form: ERTAB, ONCE, Priority: Routine, Start date: 10/19/11 14:01:00, Stop date: 10/19/11 14:01:00 Saline 2011-0 No Shelise 5 ml, Memoria Flush 0.9% 7-12 Nabil Route: l 17:00: Clay IVP, Drug [place] 00 Form: INJ, PRN, PRN Line Flush, Start date: 10/19/11 12:00:00, Duration: 24 hr, Stop date: 10/20/11 11:59:00 Sodium 2011-0 No Shelise 1,000 mL, Mem oria Chloride 7-12 Nabil Rate: l 0.9% 17:00: Clay 1,000 Oscar (Bolus) IV 00 ml/hr, 1,000 mL Infuse over: 1 hr, Route: IV, Total Volume: 1,000, Bolus dose, Priority: STAT, Start date: 10/19/11 12:00:00, Duration: 1 doses or times, Stop date: 10/19/11 12:59:00 azithromyci azithromyci No azithromyc [place] 200 mg/5 n 200 mg/5 in 200 d a mL oral mL oral mg/5 mL Medica l suspension suspension oral Charisse up TAKE 12.5 TAKE 12.5 suspension MILLILITERS MILLILITERS TAKE 12.5 (500 MG) BY (500 MG) BY MILLILITER ORAL ROUTE ORAL ROUTE S (500 MG) ONCE DAILY ONCE DAILY BY ORAL FOR 1 DAY FOR 1 DAY ROUTE ONCE THEN 6.25 THEN 6.25 DAILY FOR MILLILITERS MILLILITERS 1 DAY THEN (250 MG) BY (250 MG) BY 6.25 [address]TE ORAL ROUTE MILLILITER ONCE DAILY ONCE DAILY S (250 MG) FOR 4 DAYS FOR 4 DAYS BY ORAL ROUTE ONCE DAILY FOR 4 DAYS prednisolon prednisolon No 5mL Q1D prednisolo [place] 15 mg/5 e 15 mg/5 ne 15 mg/5 da mL oral mL oral mL oral Medica l solution solution solution [place] up Take 5 mL Take 5 mL Take 5 mL every day every day every day by oral by oral by oral route for 5 route for 5 route for days. days. 5 days. Zithromax Zithromax No Zithromax [place] Z-Tyler 250 Z-Tyler 250 Z-Tyler 250 da mg tablet mg tablet mg tablet Medical TAKE 2 TAKE 2 TAKE 2 Group TABLETS TABLETS TABLETS (500 MG) BY (500 MG) BY (500 MG) ORAL ROUTE ORAL ROUTE BY ORAL ONCE DAILY ONCE DAILY ROUTE ONCE FOR 1 DAY FOR 1 DAY DAILY FOR THEN 1 THEN 1 1 DAY THEN TABLET (250 TABLET (250 1 TABLET MG) BY ORAL MG) BY ORAL (250 MG) ROUTE ONCE ROUTE ONCE BY ORAL DAILY FOR 4 DAILY FOR 4 ROUTE ONCE DAYS DAYS DAILY FOR 4 DAYS Vital Signs Vital Name Observation Time Observation Value Comments Source BP Diastolic 2020-12-04 00:00:00 90 mm[Hg] [facility] Height 2020-12-04 00:00:00 63 [in_i] [facility] BMI (Body Mass 2020-12-04 00:00:00 27.1 kg/m2 [facility] Group BP Systolic 2020-12-04 00:00:00 141 mm[Hg] [facility] Body Weight 2020-12-04 00:00:00 2450 [oz_av] [facility] BP Diastolic 2020-12-01 00:00:00 98 mm[Hg] [facility] Height 2020-12-01 00:00:00 63 [in_i] [facility] BMI (Body Mass 2020-12-01 00:00:00 26.6 kg/m2 [facility] [facility]) Group BP Systolic 2020-12-01 00:00:00 135 mm[Hg] [facility] Body Weight 2020-12-01 00:00:00 2400 [oz_av] [facility] BP Diastolic 2018-12-11 00:00:00 80 mm[Hg] [facility] Height 2018-12-11 00:00:00 63 [in_i] [facility] BMI (Body Mass 2018-12-11 00:00:00 26.4 kg/m2 [facility] Medical Index) Group BP Systolic 2018-12-11 00:00:00 124 mm[Hg] [facility] Body Weight 2018-12-11 00:00:00 2385 [oz_av] [facility] BP Diastolic 2018-11-18 00:00:00 81 mm[Hg] [facility] Height 2018-11-18 00:00:00 63 [in_i] [facility] BMI (Body Mass 2018-11-18 00:00:00 27 kg/m2 [facility] Medical Index) Group BP Systolic 2018-11-18 00:00:00 132 mm[Hg] [facility] Body Weight 2018-11-18 00:00:00 2435 [oz_av] [facility] BP Diastolic 2018-04-25 00:00:00 80 mm[Hg] [facility] Height 2018-04-25 00:00:00 63 [in_i] [facility] BMI (Body Mass 2018-04-25 00:00:00 25.3 kg/m2 [facility] Medical Index) Group BP Systolic 2018-04-25 00:00:00 118 mm[Hg] [facility] Body Weight 2018-04-25 00:00:00 2288 [oz_av] [facility] BP Diastolic 2018-03-29 00:00:00 81 mm[Hg] [facility] BP Systolic 2018-03-29 00:00:00 123 mm[Hg] [facility] Body Weight 2018-03-29 00:00:00 2288 [oz_av] [facility] Temperature Oral (F) 2017-11-13 20:14:00 98.4 F [facility] Heart Rate 2017-11-13 20:14:00 [facility] Respitory Rate 2017-11-13 20:14:00 [facility] [place] Systolic (mm Hg) 2017-11-13 20:14:00 Lucio [facility] Diastolic (mm Hg) 2017-11-13 20:14:00 [facility] Respitory Rate 2017-11-13 17:48:00 [facility] [place] Heart Rate 2017-11-13 17:48:00 [facility] Systolic (mm Hg) 2017-11-13 17:48:00 Lucio [facility] Diastolic (mm Hg) 2017-11-13 17:48:00 [facility] Temperature Oral (F) 2017-11-13 17:48:00 98.8 F [facility] Temperature Oral (F) 2017-11-13 13:32:00 97.5 F [facility] Heart Rate 2017-11-13 13:32:00 [facility] Respitory Rate 2017-11-13 13:32:00 [facility] Systolic (mm Hg) 2017-11-13 13:32:00 Lucio [facility] [place] Diastolic (mm Hg) 2017-11-13 13:32:00 [facility] [place] Weight 2017-11-12 01:47:00 [facility] BMI Calculated 2017-11-12 01:47:00 [facility] [place] Height 2017-11-12 01:47:00 160.02 cm [facility] Height 2017-11-11 15:06:00 160.02 cm [facility] BMI Calculated 2017-11-11 15:06:00 [facility] Weight 2017-11-11 15:06:00 [facility] Systolic (mm Hg) 2017-11-08 16:31:00 Lucio [facility] [place] Diastolic (mm Hg) 2017-11-08 16:31:00 [facility] [place] Heart Rate 2017-11-08 16:31:00 [facility] Temperature Oral (F) 2017-11-08 16:31:00 98.6 F [facility] Respitory Rate 2017-11-08 16:31:00 [facility] [place] Systolic (mm Hg) 2017-11-08 12:40:00 Lucio [facility] [place] Diastolic (mm Hg) 2017-11-08 12:40:00 [facility] Respitory Rate 2017-11-08 12:40:00 [facility] Heart Rate 2017-11-08 12:40:00 [facility] Temperature Oral (F) 2017-11-08 12:40:00 98.5 F [facility] Systolic (mm Hg) 2017-11-08 08:16:00 Lucio [facility] Diastolic (mm Hg) 2017-11-08 08:16:00 [facility] [place] Temperature Oral (F) 2017-11-08 08:16:00 98.6 F [facility] Respitory Rate 2017-11-08 08:16:00 [facility] [place] Heart Rate 2017-11-08 08:16:00 [facility] BMI Calculated 2017-11-07 11:56:00 [facility] Weight 2017-11-07 11:56:00 [facility] Temperature Oral (F) 2017-11-04 21:18:00 99.1 F [facility] Systolic (mm Hg) 2017-11-04 21:18:00 Lucio [facility] Diastolic (mm Hg) 2017-11-04 21:18:00 [facility] Heart Rate 2017-11-04 21:18:00 [facility] [place] Respitory Rate 2017-11-04 21:18:00 [facility] Respitory Rate 2017-11-04 19:18:00 [facility] Heart Rate 2017-11-04 19:18:00 [facility] BMI Calculated 2017-11-04 19:18:00 [facility] [place] Weight 2017-11-04 19:18:00 [facility] Temperature Oral (F) 2017-11-04 19:18:00 98 F [facility] Height 2017-11-04 19:18:00 160.02 cm [facility] Systolic (mm Hg) 2017-11-04 19:18:00 Lucio [facility] [place] Diastolic (mm Hg) 2017-11-04 19:18:00 [facility] [place] Height 2017-11-01 16:33:00 160.02 cm [facility] Temperature Oral (F) 2017-04-21 15:45:00 98.2 F [facility] Systolic (mm Hg) 2017-04-21 15:45:00 Lucio [facility] [place] Diastolic (mm Hg) 2017-04-21 15:45:00 [facility] Respitory Rate 2017-04-21 15:45:00 [facility] [place] Heart Rate 2017-04-21 15:45:00 [facility] Weight 2017-04-21 13:57:00 [facility] BMI Calculated 2017-04-21 13:57:00 [facility] Height 2017-04-21 13:57:00 167.64 cm [facility] Respitory Rate 2017-04-21 13:57:00 [facility] Temperature Oral (F) 2017-04-21 13:57:00 98.2 F [facility] Heart Rate 2017-04-21 13:57:00 [facility] Systolic (mm Hg) 2017-04-21 13:57:00 Lucio [facility] [place] Diastolic (mm Hg) 2017-04-21 13:57:00 [facility] Temperature Oral (F) 2015-05-23 21:55:00 98.0 F [facility] Systolic (mm Hg) 2015-05-23 21:17:00 Lucio [facility] [place] Diastolic (mm Hg) 2015-05-23 21:17:00 [facility] [place] Heart Rate 2015-05-23 21:17:00 [facility] [place] Respitory Rate 2015-05-23 21:17:00 [facility] Respitory Rate 2015-05-23 19:47:00 [facility] [place] Heart Rate 2015-05-23 19:47:00 [facility] Temperature Oral (F) 2015-05-23 19:47:00 97.8 F [facility] Systolic (mm Hg) 2015-05-23 19:47:00 Lucio [facility] [place] Diastolic (mm Hg) 2015-05-23 19:47:00 [facility] Weight 2015-05-23 19:47:00 [facility] Temperature Oral (F) 2014-09-29 07:00:00 98.0 F [facility] Systolic (mm Hg) 2014-09-29 07:00:00 Lucio [facility] Diastolic (mm Hg) 2014-09-29 07:00:00 [facility] [place] Heart Rate 2014-09-29 07:00:00 [facility] [place] Respitory Rate 2014-09-29 07:00:00 [facility] [place] Weight 2014-09-29 04:11:00 [facility] Temperature Oral (F) 2014-09-29 04:11:00 97.8 F [facility] Respitory Rate 2014-09-29 04:11:00 [facility] Systolic (mm Hg) 2014-09-29 04:11:00 Lucio [facility] [place] Diastolic (mm Hg) 2014-09-29 04:11:00 [facility] Heart Rate 2014-09-29 04:11:00 [facility] [place] Diastolic (mm Hg) 2013-12-29 20:18:00 [facility] [place] Respitory Rate 2013-12-29 20:18:00 [facility] [place] Systolic (mm Hg) 2013-12-29 20:18:00 [facility]io [facility] Temperature Oral (F) 2013-12-29 20:18:00 98.1 F [facility] Heart Rate 2013-12-29 20:18:00 [facility] [place] Systolic (mm Hg) 2013-12-29 19:30:00 Lucio [facility] [place] Diastolic (mm Hg) 2013-12-29 19:30:00 [facility] [place] Respitory Rate 2013-12-29 19:30:00 [facility] Diastolic (mm Hg) 2013-12-29 19:15:00 [facility] [place] Systolic (mm Hg) 2013-12-29 19:15:00 Lucio [facility] Respitory Rate 2013-12-29 19:15:00 [facility] Heart Rate 2013-12-29 12:37:00 [facility] Temperature Oral (F) 2013-12-29 12:37:00 98.7 F [facility] Heart Rate 2013-12-29 10:18:00 [facility] Temperature Oral (F) 2013-12-29 10:18:00 98.6 F [facility] Weight 2013-12-29 10:09:00 [facility] BMI Calculated 2013-12-29 10:09:00 [facility] Height 2013-12-29 10:09:00 162.56 cm [facility] Height 2011-10-22 23:22:00 160.02 cm [facility] Weight 2011-10-22 23:22:00 [facility] Weight 2011-10-19 17:07:00 [facility] [place] Procedures Procedure Date / Time Performing Source Performed Clinician Esophagogastroduodenoscopy 2017-09-07 Rocco ial [facility] 05:00:00 Cystoscopy and retrograde 2013-12-29 [facility] [place] pyelography<sup>1</sup> 05:00:00 section 2013-05-22 [facility] 06:00:00 Colonoscopy 2012-04-09 [facility] 06:00:00 Anesth Kidney Stone Destruct [facility] Cardiac Surgery [facility] Tubal Ligation [facility] Cochleostomy [facility] Plan of Care Planned Activity Planned Date Details Comments Source Diagnostic Test 2020-12-01 rapid strep group A, [facility] Pending 00:00:00 throat [code = rapid Group strep group A, throat] Diagnostic Test 2020-12-01 SARS CoV 2 RNA [facility] Pending 00:00:00 (COVID-19), QL, Group tacker elastic band-PCR, respiratory specimen [code = SARS CoV 2 RNA (COVID-19), QL, tacker elastic band-PCR, respiratory specimen] Instructions [facility] Encounters Start End Encounter Admission Attending Care Care Encounter Source Date/Time Date/Time Type Type Clinicians Facility Department ID 2020-12-04 2020-12-04 Juanita [facility] [place] - [id number] M atagor 00:00:00 00:00:00 Debbie Rowley [facility] Medical PLAN CONSULTANT: [address] [facility] [address] [place] [phone] , Ph. 2020-12-01 2020-12-01 Rafaela [facility] [place] - [id number] M atagor 00:00:00 00:00:00 Discovery ajay Kenny PLAN CONSULTANT: [address] [facility] [address] [address] , Ph. 2018-12-11 2018-12-11 Rafaela [facility] [place] - [id number] M atagor 00:00:00 00:00:00 Discovery ajay Kenny PLAN CONSULTANT: [address] [facility], [facility] [address], [facility] [place] [address] , Ph. 2018-11-18 2018-11-18 Rafaela [facility] [place] - [id number] M at[place]or 00:00:00 00:00:00 Discovery ajay Kenny PLAN CONSULTANT: [address] [place] [address], [facility] [address], [facility] [address] , Ph. 2018-04-25 2018-04-25 Rafaela [place] - [id number] M atagor 00:00:00 00:00:00 Discovery ajay Kenny PLAN CONSULTANT: [address] [place] [address], [facility] [address], [facility] [place] [address] , Ph. 2018-03-29 2018-03-29 Alex [facility] [place] - [id number] [place] 00:00:00 00:00:00 Raegan Christie Medical MD: [address] [place] [address], [facility] [address], [place] [address] , Ph. 2017-11-11 2017-11-13 Inpatient nullFlavo [facility] [id number] Memoria 14:58:00 23:47:00 erlin Moore 06 l [facility] [place] 2017-11-11 2017-11-13 Outpatient Swapna [facility] SL [id number] 09:58:00 18:47:00 No 06 2017-11-07 2017-11-08 Bedded nullFlavo [facility] [id number] [facility] 11:10:58 17:25:00 Outpatient erlin Moore 04 l [facility] [place] 2017-11-07 2017-11-08 Outpatient Georgi MHSL MH[facility] [id number] 06:10:58 12:25:00 Shane Jordan 2017-11-04 2017-11-04 Emergency nullFlavo [facility] [id number] Mem[facility] 19:13:00 22:33:00 r [place] 05 l [facility] [place] 2017-11-04 2017-11-04 Outpatient KELY TuttleSL [facility] [id number] 14:13:00 17:33:00 Jaimejaleel Parker 2017-11-04 2017-11-04 Outpatient KELY TuttleSL MHSL [id number] 14:13:00 17:33:00 Jaime 05 Keith 2017-09-27 2017-09-28 Outpt Diag nullFlavo [facility] [id number] Mem[facility] 14:12:00 04:59:00 Services r Outpatient 01 l Imaging [facility] 2017-09-27 2017-09-27 Outpatient DONALDO Laureano [facility] [id number] 09:12:00 23:59:00 Shane Andrew Jordan 2017-08-23 2017-08-23 Outpatient Swords, SWOBGYN SWOBGYN [id number] [facility] 08:15:00 08:15:00 Reny Kuo 2017-08-22 2017-08-22 Outpatient Swords, SWOBGYN SWOBGYN [id number] [facility] 14:38:00 14:38:00 Renyjaleel Kuo 2017-04-21 2017-04-21 Emergency nullFlavo [facility] [id number] [facility] 13:52:00 15:48:00 r [facility] 03 l [facility] [place] 2017-04-21 2017-04-21 Outpatient Griffin Gonzales SL S [id number] 07:52:00 09:48:00 [place] 2017-04-21 2017-04-21 Outpatient Griffin Gonzales SL S [id number] 07:52:00 09:48:00 [place] 2015-05-23 2015-05-23 EC nullFlavo [facility] [id number] [facility] 19:45:00 21:57:00 Emergency [place] 02 l [place] [facility] 2015-05-23 2015-05-23 Outpatient Candice, MHSL MHSL [id number] 13:45:00 15:57:00 Doris Oglesby 2014-09-29 2014-09-29 EC nullFlavo [facility] [id number] [facility] 04:05:00 07:26:00 Emergency r [place] 01 l [place] [facility] 2014-09-28 2014-09-29 Outpatient Mary Nino [id number] 23:05:00 02:26:00 Serg [id number] [id number] 2013-12-29 Bedded [facility] [id number] Memoria 04:18:00 23:25:00 Outpatient r [facility] 00 l [facility] [place] 2013-12-28 2013-12-29 Outpatient Orestes, [id number] 23:18:00 18:25:00 Ronald [id number] 2011-10-22 Emergency nullFlavo [id number] [facility] 18:11:00 20:09:00 r [place] 01 l [facility] 2011-10-19 2011-10-19 Emergency nullFlavo [id number] [facility] 11:53:00 14:18:00 r [place] 00 l [facility] Results Test Description Test Time Test Comments Results Result Comments Source SARS-CoV-2 (COVID-19) RNA [Presence] in Respiratory sp ecimen by 2020-12-04 00:00:00 MICAH with probe detection Test Item Value Reference Range Interpretation Comme nts SARS-CoV-2 (COVID-19) RNA [Presence] in Respiratory detected no t detected A specimen by MICAH with probe detection (test code = 09030-0) [facility] [Presence] in Respiratory specimen by MICAH with probe istwmniih9397-24-46 00:00:00 Test Item Value Reference Range Interpretation Comments SARS-CoV-2 (COVID-19) RNA [Presence] detected not detected A in Respiratory specimen by MICAH with probe detection (test code = 62649-5) [facility], [id number] 13:45:00 Test Item Value Reference Range Interpretation Comments Strep Result (test code = Strep negative Result) [facility] hqyvsh6790-45-81 13:45:00 Test Item Value Reference Range Interpretation Comments Strep Result (test code = Strep negative Result) [facility] bhpbjahryc4464-48-36 12:26:00 Test Item Value Reference Range Interpretation Comments [facility] blood collection sent to [facility] (test code = [facility] blood collection) [facility] cqgvepqfrb9839-29-14 12:26:00 Test Item Value Reference Range Interpretation Comments [facility] blood collection sent to [facility] (test code = [facility] blood collection) [facility] yekeb3839-83-98 09:55:00 Test Item Value Reference Range Interpretation Comments Test (test code = negative Test) [facility] (dipstick) panel - Mslbv1464-53-28 09:55:00 Test Item Value Reference Range Interpretation Comments Leukocytes (test code = Leukocytes) Small Nitrite (test code = Nitrite) negative Urobilinogen (test code = .2 Urobilinogen) Protein (test code = Protein) Negative pH (test code = pH) 6.0 Blood (test code = Blood) Small Specific Peapack (test code = 1.025 Specific Peapack) Ketone (test code = Ketone) Negative Bilirubin (test code = Bilirubin) Negative Glucose (test code = Glucose) Negative Appearance (test code = Appearance) Turbid Color (test code = Color) Yellow [facility] (dipstick) panel - Mczgk0039-49-58 09:35:00 Test Item Value Reference Range Interpretation Comments Leukocytes (test code = Negative Leukocytes) Nitrite (test code = negative Nitrite) Urobilinogen (test code = .2 Urobilinogen) Protein (test code = Negative Protein) pH (test code = pH) 8.5 Blood (test code = Blood) Non-Hemolyzed: Trace Specific Peapack (test 1.020 code = Specific [place]ap[place]) Ketone (test code = Negative Ketone) Bilirubin (test code = Negative Bilirubin) Glucose (test code = Negative Glucose) Appearance (test code = Cloudy Appearance) Color (test code = Color) Yellow [facility]CHE[facility] OZECT8645-26-04 09:26:19564[place] HermannCHEM NBQMS3824-83-32 09:26:0025[facility] HermannCHEM SWBZO2302-89-85 09:26:17951 [facility]annCHEM LOOSU8836-77-24 09:26:003.7[facility] HermannCHEM PANEL 2017-11-12 09:26:008.2[facility] HermannCHEM QWGLZ6154-30-91 09:26:0010.7[facility] HermannCHEM WYMCX1471-06-28 09:26:0081[facility] HermannCHEM XBUET3014-22-91 09:26:000.45[facility] HermannCHEM LVIKD6154-35-07 09:26:009[facility] HermannCHEM HQSEN4683-21-11 09:26:26190Ynhmojan AtdwtifATNODRRMPD3549-17-00 09:26:000.8 Memorial CqwiggmIKOKIAZYGN6538-38-58 09:26:002.1[facility] HermannHEMATOLOGY 2017-11-12 09:26:005.4[facility] ZuzftsqQEIGKRMQZO6303-79-64 09:26:001+ (11/12/17 4:26 AM)[facility] IyhnsxrOJTEEBTOSN4425-18-96 09:26:001+ *ABN*(11/12/17 4:26 AM) [facility] VdfoansKINCDADVUX0887-40-62 09:26:000.0[facility] HermannHEMATOLOGY 2017-11-12 09:26:000.2[facility] GyihbyiKEEPDKAVCD0322-70-07 09:26:000.2[facility] BnefrjnXEITIMHLSH6929-77-76 09:26:002.2[facility] CuwbamjHPGYORTCLH8966-75-45 09:26:0025.3[facility] LyavvaiYLHFMANGCM2593-47-42 09:26:0063.2[facility] XGBNEYXOXY0196-12-93 09:26:009.1[facility] MepapwhPHMTMBFPVX1468-79-16 09:26:007.3 [facility] FxexsiaMLJJJXLFZM7513-90-73 09:26:0017.5[facility] HermannHEMATOLOGY 2017-11-12 09:26:94029Plspeprc TmppygkTXSCRVBQKP4130-16-86 09:26:00 Test Item Value Reference Range Interpretation Comments MCH (test code = MCH) 21.2 pg 27.0-31.0 [facility] XdovukiYDFPIQYDLY9574-60-52 09:26:0030.1[facility] HermannHEMATOLOGY 2017-11-12 09:26:0029.0[facility] MvbdsmsRTRXQKWVKU3446-11-11 09:26:008.7[facility] RmitxasHIGSDBZMZM8673-76-87 09:26:004.13[facility] PlwflycMZGCYLYHON3577-48-77 09:26:0070.2[facility] JfbkiirUERAODPGMJ4129-05-93 09:26:008.5[facility] HermannCHEM IHJEX0259-28-27 15:34:001.1[facility] HermannCHEM OGOXM3593-25-81 15:34:0080 [facility] HermannCHEM VVYIC0990-07-40 15:34:14550Puxdzrfj HermannCHEM PANEL 2017-11-11 15:34:0081[facility] HermannCHEM KJLCH9527-16-60 15:34:000.3[facility] HermannCHEM DYGDU0914-55-94 15:34:0014Mem[facility] HermannCHEM SFXEG3907-35-46 15:34:0033[facility] HermannCHEM PEVTQ0841-72-92 15:34:01479Towgrtyu HermannCHEM ZAUEI9488-03-24 15:34:0028[facility] HermannCHEM FRJDH2353-90-37 15:34:14584 [facility] HermannCHEM OYXVE7349-13-06 15:34:000.61[facility] HermannCHEM PANEL 2017-11-11 15:34:008[facility] HermannCHEM OBFSP2950-23-69 15:34:003.6[facility] HermannCHEM ZXHYC5383-84-31 15:34:0085[facility] HermannCHEM OEITS2955-79-79 15:34:003.9[facility] HermannCHEM CJIIS1238-11-98 15:34:007.7[facility] HermannCHEM CISIW7911-80-86 15:34:008.8[facility] HermannCHEM POEPH8899-25-96 15:34:00 Test Item Value Reference Range Interpretation Comments A/G Ratio (test code = A/G Ratio) 1.0 1 0.7-1.6 [facility] HermannCHEM [id number] 15:34:00 Test Item Value Reference Range Interpretation Comments B/C Ratio (test code = B/C Ratio) 13 1 6-25 [facility] HermannCHEM MRSBY9231-85-09 15:34:003.8[facility] HermannCHEM PANEL 2017-11-11 15:34:009.6[facility] AebgfuhJUSWULGDDEGUM2155-36-16 15:34:00Negative *NA*(11/11/17 10:34 AM)[facility] LfkflhwBNTOZDEXSR0467-92-85 15:34:00 Test Item Value Reference Range Interpretation Comments PTT (test code = PTT) 30.7 s 22.9-35.8 [facility]PtzzwmmVAWUYKPDNY9895-00-44 15:34:00 Test Item Value Reference Range Interpretation Comments INR (test code = INR) 1.00 1 0.85-1.17 [facility] CenterMppreiqORJBWDQKAS5295-25-07 15:34:00 Test Item Value Reference Range Interpretation Comments PT (test code = PT) 13.2 s 12.0-14.7 [facility] IuciwaeGQLDHLUDGH2487-05-04 15:34:52761Pcijtuiv HermannHEMATOLOGY 2017-11-11 15:34:00 Test Item Value Reference Range Interpretation Comments MCH (test code = MCH) 21.4 pg 27.0-31.0 [facility] FoslfigEFTOKFOVAH3534-26-49 15:34:0030.3[facility] HermannHEMATOLOGY 2017-11-11 15:34:0017.4[facility] FzuhmchCDWNGNTGTN7553-49-94 15:34:007.7[facility] HxbgpprGWTQPNSYUG9192-13-50 15:34:0033.8[facility] XxcntjxIEDJJFXHYV2850-83-49 15:34:0010.3[facility] SgfhrtsXXULLSXXMY9139-16-40 15:34:0070.7[facility] AHKSIURQTB5562-82-56 15:34:0016.1[facility] RgkkjfvRSLKMNBJAH8889-78-78 15:34:00 4.79[facility] CvcaygbHVXKDPVRFN7095-29-67 15:34:001.5[facility] HermannHEMATOLOGY 2017-11-11 15:34:0013.5[facility] SudxmdgEULWFLHWCB4726-44-45 15:34:001.0[facility] XucqmkvIJQZYWGTLG2071-84-01 15:34:000.0[facility] NtjwlsyUSEDWMSNNV3015-10-09 15:34:001.0[facility] LypjvysUNNCHPXTHB0457-10-46 15:34:0083.7[facility] NVHHCWDLYF3247-21-42 15:34:006.0[facility] DkowdwmQAWAYUJEXG3116-56-42 15:34:009.3 [facility] WymngviSDQLHQODWT8988-92-01 15:34:001+ *ABN*(11/11/17 10:34 AM)[facility] EnaegwyYAYBCPVMAX1874-69-39 15:34:000.2[facility] SsyhhnuPXQOXXZLEE5455-08-35 15:34:000.0[facility] AlaaolyPFEKASNMTS8132-02-32 15:34:001+ *ABN*(11/11/17 10:34 AM)[facility] DaqrsofDRMQJGADNE7748-25-80 15:34:001+ (11/11/17 10:34 AM)[facility] HermannURINE AND SBTZW6172-28-60 15:34:006[facility] HermannURINE AND STOOL 2017-11-11 15:34:00Negative (11/11/17 10:34 AM)[facility] HermannURINE AND STOOL 2017-11-11 15:34:00 Test Item Value Reference Range Interpretation Comments UA pH (test code = UA pH) 6.0 1 5.0-8.0 [facility]annURINE AND GXMUX4623-68-12 15:34:00 Test Item Value Reference Range Interpretation Comments UA Spec Grav (test code = UA Spec 1.014 1 Grav) [facility]annUR[facility] AND [id number] 15:34:00Negative *NA*(11/11/17 10:34 AM) [facility]annUR[facility] AND CUCXA1156-91-99 15:34:0025[facility] HermannURINE AND QBAVV9903-10-49 15:34:00Large *ABN*(11/11/17 10:34 AM)[facility]annUR[facility] AND TMRYT0555-75-51 15:34:00Negative (11/11/17 10:34 AM)[facility]annURINE AND OWNWN1873-66-80 15:34:001[facility]annURINE AND QZAKS2956-25-44 15:34:00 Yellow *NA*(11/11/17 10:34 AM)[facility]annUR[facility] AND GEOGP8537-32-91 15:34:00 Clear (11/11/17 10:34 AM)[facility] HermannCARDIAC TBZDZXX5059-13-36 15:15:00 <0.02[facility] HermannCHEM JINEG8238-67-89 09:58:60714Idyvopjv HermannCHEM AXLFS5270-52-60 09:58:008.2[facility] HermannCHEM MIQEY1193-47-88 09:58:0025 [facility] HermannCHEM RUAGY2109-06-27 09:58:74928Cwazsxjz HermannCHEM PANEL 2017-11-08 09:58:003.6[facility] HermannCHEM IFUQP3137-20-67 09:58:86536Lzhjzydf HermannCHEM CRKWZ2982-48-52 09:58:000.52[facility] HermannCHEM KOURH0042-29-47 09:58:006[facility] HermannCHEM EMTOT6903-59-25 09:58:0084[facility] HermannCHEM CVTFS5680-60-34 09:58:0011.6[facility] LmzzezcKGHUTRGXLE1246-47-29 09:58:007.7 [facility] XuresrmJSXXOHYXRQ2950-17-32 09:58:008.7[facility] HermannHEMATOLOGY 2017-11-08 09:58:0068.8[facility] IhypprwYGBRMSOGTD9372-90-62 09:58:004.17[facility] PklzhpeYEQQRNLCMR7731-00-93 09:58:0014.6[facility] DanxztaCCNDSSEDVK4086-74-28 09:58:00 Test Item Value Reference Range Interpretation Comments MCH (test code = MCH) 20.9 pg 27.0-31.0 [facility] SjlxuwiOORFRDIPVJ1800-87-33 09:58:89583Xsuxoqvs HermannHEMATOLOGY 2017-11-08 09:58:0017.6[facility] EafadbkLFDNHDNJLZ8355-34-98 09:58:0030.4[facility] QeicacfAEYAFONXPS0338-24-11 09:58:0028.7[facility] GjxjynrTWFRQBBWRN9876-01-01 09:58:0010.7[facility] SiyymunLVYDHANOTH5156-13-32 09:58:000.1[facility] [place] RHMEBKQMSQ6717-67-84 09:58:000.0[facility] RpsnfagQZROUKIVEQ0838-72-64 09:58:001.4 [facility] CeheiiwVLWVKFPPJI7881-51-76 09:58:000.0[facility] HermannHEMATOLOGY 2017-11-08 09:58:002.5[facility] FuqfbiiPTYUSIFZFA3401-49-19 09:58:009.3[facility] IdbugblOHRBURVBRE7460-88-31 09:58:000.3[facility] RjouruaWENYGDEKEB1829-37-23 09:58:0017.2[facility] IchnoafRJRDSAROYN2925-74-40 09:58:0073.1[facility] URINE AUGC7220-81-38 11:13:00Negative (11/07/17 6:13 AM)[facility] HermannCHEM PANEL 2017-11-04 19:56:88631Xvzjdpgq HermannCHEM TPHRW7893-77-28 19:56:0098[facility] HermannCHEM RVKSN0744-94-21 19:56:003.4[facility] HermannCHEM YREZI4389-82-44 19:56:67200Kgehzmzf HermannCHEM ZUUDH9855-18-51 19:56:0026[facility] HermannCHEM MVDSD1784-74-81 19:56:003.6[facility] HermannCHEM TQKGC6408-44-47 19:56:0011 [facility]annCHEM ZQEYH5027-90-06 19:56:0020[facility] HermannCHEM PANEL 2017-11-04 19:56:0083[facility] HermannCHEM UKRKQ2492-88-89 19:56:000.2[facility] HermannCHEM WNDHI1992-47-95 19:56:008.5[facility] HermannCHEM SDITS8739-35-40 19:56:007.2[facility] HermannCHEM KLHID4887-74-14 19:56:0077[facility] HermannCHEM GOLQV9081-05-42 19:56:008[facility] HermannCHEM VVGHT1462-39-97 19:56:000.77 [facility]annCHEM TPBEG5107-43-16 19:56:17670Mbfqdmzc HermannCHEM PANEL 2017-11-04 19:56:00 Test Item Value Reference Range Interpretation Comments A/G Ratio (test code = A/G Ratio) 1.0 1 0.7-1.6 [facility] HermannCHEM IRZEX5012-55-84 19:56:003.6[facility] HermannCHEM PANEL 2017-11-04 19:56:00 Test Item Value Reference Range Interpretation Comments B/C Ratio (test code = B/C Ratio) 10 1 6-25 [facility] HermannCHEM ZJMDS7736-57-28 19:56:0010.4[facility] HermannENDOCRINOLOGY 2017-11-04 19:56:00<1[facility] RnmvpcwZCBLLFWITX3505-19-02 19:56:0010.2 [facility] QxcelgfTXEUHBIDUZ7141-30-53 19:56:004.72[facility] HermannHEMATOLOGY 2017-11-04 19:56:007.8[facility] NmnjjpsBUKQNIFEPS5717-10-97 19:56:86758Rxubjflq EducaziGTOOEFBMOX2957-62-38 19:56:00 Test Item Value Reference Range Interpretation Comments MCH (test code = MCH) 20.8 pg 27.0-31.0 [facility] GerxsgzZILAJCRVIL8075-33-66 19:56:0017.6[facility] HermannHEMATOLOGY 2017-11-04 19:56:0033.0[facility] SfoxembMZDEYQRHMY1372-99-82 19:56:0029.8[facility] XsocvrfBDSIJLCVUC7910-45-46 19:56:009.8[facility] GffeszuJLKJAGYSZQ8232-94-61 19:56:0070.0[facility] CminlffMDGFOBTKBU2948-13-95 19:56:0063.4[facility] YSABNFNGMK4444-89-06 19:56:0026.3[facility] IxzhherPVLJRUVJTE6520-05-93 19:56:00 8.7[facility] RwavrprABEIUULPPQ0789-50-80 19:56:001.5[facility] HermannHEMATOLOGY 2017-11-04 19:56:000.9[facility] ApmzsywIZWSKNMXSK5769-05-87 19:56:000.1[facility] OqjsdlvQSRBCSEWNE1039-34-76 19:56:006.5[facility] EwigdtuWPWEHPKTEW7255-53-24 19:56:002.7[facility] TmqwvstNCMPZTGCKL4150-02-34 19:56:000.2[facility] QQSXXXBCXZ6973-28-00 19:56:000.0[facility] RDZTG0828-99-54 19:56:00Small *ABN*(11/04/17 2:56 PM)[facility] HQCFI2668-47-21 19:56:00Negative *NA*(11/04/17 2:56 PM)[facility] TPOWS9041-20-90 19:56:00>182[facility] CJOXR3066-97-36 19:56:00Negative (11/04/17 2:56 PM)[facility] QCHPD6190-15-08 19:56:002[facility] TWINK3860-18-12 19:56:00Large *ABN*(11/04/17 2:56 PM)[facility] MZZIK9588-86-16 19:56:00 Test Item Value Reference Range Interpretation Comments UA pH (test code = UA pH) 5.0 1 5.0-8.0 [facility] XAOJZ9829-29-95 19:56:00 Test Item Value Reference Range Interpretation Comments UA Spec Grav (test code = UA Spec 1.020 1 Grav) [facility] QTCMR8015-98-66 19:56:00Light Yellow *NA*(11/04/17 2:56 PM)[facility] UFYWQ5266-02-49 19:56:00Slight *ABN*(11/04/17 2:56 PM)[facility] DafqwqmKXLNPAQJRH9695-02-33 17:12:0030.6[facility] HermannHEMATOLOGY 2017-11-01 17:12:0017.5[facility] ByrdbezTXWYCKCYXY9520-48-33 17:12:004.74[facility] RucfeftIWIBBZRWKN9862-33-64 17:12:0032.8[facility] HqnavdbUUZHXDLRPQ7388-14-58 17:12:0069.1[facility] ZkfgjfrFINJTROZPV3634-79-53 17:12:00 Test Item Value Reference Range Interpretation Comments MCH (test code = MCH) 21.2 pg 27.0-31.0 [facility] RuhhlmqXMGQANOABM5678-14-99 17:12:[place] HermannHEMATOLOGY 2017-11-01 17:12:007.7[facility] VzbswinFPGZLWVABI9943-26-94 17:12:0010.0[facility] CgvrrrhAXCPMWWRGZ3403-67-19 17:12:009.6[facility] SytcyyjVTXYAGUVVJ7680-18-68 17:12:000.1[facility] XxqzsjkPUODNWYPNX6802-03-95 17:12:005.9[facility] [place] EEFOFXDIMH3240-31-47 17:12:000.1[facility] CuuounqGGYEFIZQFL2228-48-07 17:12:002.8 [facility] JxfjgssLJKIWOJOZO2961-24-66 17:12:000.7[facility] HermannHEMATOLOGY 2017-11-01 17:12:001+ *ABN*(11/01/17 12:12 PM)[facility] HermannHEMATOLOGY 2017-11-01 17:12:00Normal (11/01/17 12:12 PM)[facility] OlvrlinIPGBUJBUHI1132-03-36 17:12:001+ (11/01/17 12:12 PM)[facility] IhtbcpqFZSIYRGGCP0439-40-62 17:12:007.4 [facility] PmokdlkSKNQXOQMKX0686-34-32 17:12:0029.7[facility] HermannHEMATOLOGY 2017-11-01 17:12:0061.2[facility] ZvlfutsKJZKZHSZBX4656-72-38 17:12:001.2[facility] GefupukGCOTUAYHNA7125-78-23 17:12:000.5[facility] JykbjjuNNWVGHEHOVUO8290-99-73 14:43:0011.7[facility] AnbwhxnPXDFWBOBYDCA1847-26-36 14:43:43773Lavscuiu [place] LBFCHYLTSZMK9432-92-05 14:43:008.7[facility] BntltarNJRKTHKGLOYC1926-72-50 14:43:0025[facility] KlfubohQFDXWBZVVVUX5290-89-30 14:43:94202Azbhxhfb Oscar UAKEWPKNYKYS2121-63-45 14:43:003.7[facility] RdfosvqMFENSAEULCWR1790-82-23 14:43:000.59[facility] MqmcigiZCIOGRICJFMN1213-51-36 14:43:11743Yeljtdzu [facility] SDDNXSGWNYHB9088-64-42 14:43:008[facility] CjjhwkcDILXNIYFFJBM7983-45-99 14:43:00 99[facility] LhuseqkEQRCDNUDBQ2765-59-72 14:43:007.4[facility] HermannHEMATOLOGY 2017-04-21 14:43:03050Qptbnwmh IwiszlwVHWYVNTRQA6472-08-64 14:43:0019.3[facility] TywkwbvPSULJUWHDP8305-30-25 14:43:0031.1[facility] IfcheauGRLDAIVOWO1154-44-10 14:43:00 Test Item Value Reference Range Interpretation Comments MCH (test code = MCH) 22.1 pg 27.0-31.0 [facility] ZschkudZMUFBDDPVA9716-89-00 14:43:009.2[facility] HermannHEMATOLOGY 2017-04-21 14:43:0071.2[facility] UrtnmjzTTHVXGGHZA0660-60-22 14:43:004.89[facility] OslzlucVCUDIRXODH2052-93-98 14:43:0034.9[facility] EcvodbkWGUFKLSCYE4005-49-00 14:43:0010.8[facility] IrjusctILXSLGEXAZ8310-21-41 14:43:000.7[facility] LJZFMAJBUL2264-97-94 14:43:000.1[facility] ZhaxroqFAITZMAGLZ2346-97-14 14:43:000.0 [facility] RfbkvcgPLWWUKRTFG3712-92-73 14:43:001+ *ABN*(04/21/17 8:43 AM)[facility] IknbadwKJIVDCOUTU8283-41-09 14:43:002.4[facility] NyoixisETZDRSQWVA2811-07-54 14:43:0065.3[facility] JzaujqyLRDHTQCSAC5532-55-15 14:43:001.5[facility] [place] UVCRSDZRZG1605-96-67 14:43:000.0[facility] HnmsnzcNSVHMFZGNO8693-39-98 14:43:00 25.6[facility] GgkuyesVWAOCRCWPP3144-15-49 14:43:006.0[facility] HermannHEMATOLOGY 2017-04-21 14:43:007.6[facility] PFICY5256-11-15 14:43:00Negative *NA*(04/21/17 8:43 AM)[facility] NEDSI9614-49-44 14:43:00Small *ABN*(04/21/17 8:43 AM)[facility] EGLUN2377-40-16 14:43:00 Test Item Value Reference Range Interpretation Comments UA pH (test code = UA pH) 6.0 1 5.0-8.0 [facility] AOWAM7297-31-74 14:43:004[facility] RPWWW2652-10-64 14:43:00Negative (04/21/17 8:43 AM)[facility] RKGWK9110-57-98 14:43:00Negative (04/21/17 8:43 AM)[facility] PUCTF5401-74-84 14:43:00<1[facility] JMVTD0473-75-82 14:43:00 Test Item Value Reference Range Interpretation Comments UA Spec Grav (test code = UA Spec 1.005 1 Grav) [facility] KDWCE9280-07-01 14:43:00Clear (04/21/17 8:43 AM) [facility] RDQVF2180-52-84 14:43:00Light Yellow *NA*(04/21/17 8:43 AM)[facility] HermannCHEM QKJAK2023-38-62 20:36:89826Lalcxeuj HermannCHEM PANEL 2015-05-23 20:36:27069Regnorht HermannCHEM MWYFJ0186-25-80 20:36:0016[facility] HermannCHEM CESJC7292-72-89 20:36:0073[facility] HermannCHEM YPYKU4653-77-62 20:36:000.3[facility] HermannCHEM ONFHP8078-14-72 20:36:76795Rtpnhvlg HermannCHEM CHQOR1116-36-22 20:36:000.52[facility] HermannCHEM SVWYC1657-51-38 20:36:0011 [facility] HermannCHEM ZFELR7033-27-54 20:36:0094[facility] HermannCHEM PANEL 2015-05-23 20:36:003.2[facility] HermannCHEM TOGOB4771-60-04 20:36:69230Iyyifpeo HermannCHEM HNTXE4019-44-13 20:36:0027[facility] HermannCHEM DYQIG3064-94-20 20:36:0021[facility] HermannCHEM HZDZJ5279-19-85 20:36:009.2[facility] HermannCHEM WXYNX8962-53-01 20:36:008.0[facility] HermannCHEM UWHLS7075-49-75 20:36:003.4 [facility]annCHEM BXTZP4014-18-37 20:36:003.6[facility] HermannCHEM PANEL 2015-05-23 20:36:007.0[facility] HermannCHEM IBIEF7921-34-38 20:36:0020[facility] HermannCHEM CSUDZ7178-07-65 20:36:001.1[facility] VexzjfoBXHJZOZNBA4906-40-37 20:36:001+ *ABN*(05/23/15 2:36 PM)[facility] ZffumiaCPKHTIXJZM7029-97-39 20:36:00 0.1[facility] RsnlvzsYOCOPEEOAF6115-92-33 20:36:000.0[facility] HermannHEMATOLOGY 2015-05-23 20:36:001+ (05/23/15 2:36 PM)[facility] KuhgxzlOGPNRXYCED7082-98-98 20:36:001+ *ABN*(05/23/15 2:36 PM)[facility] QecmykyRENYFLFGVE7492-81-52 20:36:00 2.6[facility] JvpapsvWQHQXQOWBV5108-48-71 20:36:000.7[facility] HermannHEMATOLOGY 2015-05-23 20:36:001.5[facility] LjsjoxeDJRNVLFEOJ0378-84-78 20:36:0058.4[facility] TcuavphLKBEEGWXFR9343-80-97 20:36:008.5[facility] LxjsukrSZESUOEPNY5432-11-51 20:36:004.8[facility] BcauoxvOTSLAVPIZC3450-56-85 20:36:000.3[facility] [place] OODVAGEORU6182-74-94 20:36:0031.3[facility] VoqzmgbLRQMNZTTQI0610-36-29 20:36:00 Test Item Value Reference Range Interpretation Comments MCH (test code = MCH) 18.8 pg 27.0-31.0 [facility] DzurdvbZSKQEJSQXS6448-30-91 20:36:0026.6[facility] HermannHEMATOLOGY 2015-05-23 20:36:004.24[facility] KzctyywLQHIDNJVDV8476-61-32 20:36:0062.8[facility] OjvfzgrBYTGZVEKKA6552-56-02 20:36:007.6[facility] OtrnttoCKLZGWJUVK6152-99-87 20:36:008.0[facility] RobeffkPPZVOSAWZL9750-00-90 20:36:008.3[facility] [place] HWDKHDYBTW7933-36-04 20:36:89707Dlgiypya RlrnlwkPBQDCHWQYW6049-88-44 20:36:00 18.0[facility] TmpmdjnAUFTBLCBKM6031-31-86 20:36:0029.9[facility]UR[facility] AND DZZQF6155-80-87 20:36:00None Seen (05/23/15 2:36 PM)[facility] CXPTS1083-59-05 20:36:00Clear (05/23/15 2:36 PM)[facility] STOOL 2015-05-23 20:36:00Yellow *NA*(05/23/15 2:36 PM)[facility] STOOL 2015-05-23 20:36:00Negative *NA*(05/23/15 2:36 PM)[facility] STOOL 2015-05-23 20:36:00Negative *NA*(05/23/15 2:36 PM)[facility] STOOL 2015-05-23 20:36:00 Test Item Value Reference Range Interpretation Comments UA pH (test code = UA pH) 6.0 1 5.0-8.0 [facility] RXTPU3434-91-95 20:36:00 Test Item Value Reference Range Interpretation Comments UA Spec Grav (test code = UA Spec 1.020 1 Grav) [facility] BDPAB5588-09-74 20:36:00Negative (05/23/15 2:36 PM) [facility] UYACS1160-18-70 20:36:00Moderate *ABN*(05/23/15 2:36 PM)[facility] AMMVS3610-24-44 20:36:000.2[facility] FGAMS6426-09-32 20:36:00Negative (05/23/15 2:36 PM)[facility] JMAHX7364-14-11 20:36:00Small *ABN*(05/23/15 2:36 PM)[facility] TYQNX1727-15-38 20:36:00Negative (05/23/15 2:36 PM)[facility] CHEM 2015-05-23 20:36:00Negative (05/23/15 2:36 PM)[facility] HermannCHEM PANEL 2014-09-29 05:40:10666Ylxioojy HermannCHEM WMIXW9035-72-92 05:40:000.3[facility] HermannCHEM HVWMP2238-09-00 05:40:0016[facility] HermannCHEM FKJHV6156-55-56 05:40:0082[facility] HermannCHEM CTCLJ6561-09-25 05:40:11455Lrvyvasg HermannCHEM JYEMI0420-52-74 05:40:003.7[facility] HermannCHEM VKIDZ6405-38-04 05:40:0020 [facility]annCHEM HHPAP3337-16-62 05:40:007.2[facility] HermannCHEM PANEL 2014-09-29 05:40:008.3[facility] HermannCHEM ZUBMV7730-40-81 05:40:0025[facility] HermannCHEM XYQFX7593-11-15 05:40:0095[facility] HermannCHEM ZKFQX3801-63-78 05:40:003.5[facility] HermannCHEM BZOPT2606-03-57 05:40:46083Qijcquik HermannCHEM YIKSN7578-69-52 05:40:000.6[facility] HermannCHEM GHQPS7765-03-89 05:40:008 [facility]annCHEM JKLCW5885-90-25 05:40:001.1[facility] HermannCHEM PANEL 2014-09-29 05:40:0011.5[facility] HermannCHEM RYZEY1225-26-15 05:40:0013[facility] HermannCHEM ICVLB2850-15-30 05:40:003.5[facility] NkbstetOMILOMMCFO6220-90-32 05:40:00 Test Item Value Reference Range Interpretation Comments PTT (test code = PTT) 32.8 s 22.9-35.8 [facility] AawzhblIWGDQHHZRT0296-31-34 05:40:000.98[facility] HermannHEMATOLOGY 2014-09-29 05:40:00 Test Item Value Reference Range Interpretation Comments PT (test code = PT) 13.0 s 12.0-14.7 [facility] UijcscdBERBIOYCWJ5964-22-68 05:40:0029.6[facility] HermannHEMATOLOGY 2014-09-29 05:40:00 Test Item Value Reference Range Interpretation Comments MCH (test code = MCH) 20.2 pg 27.0-31.0 [facility] IjftdnrOCHBPLCXBM2432-88-16 05:40:0068.1[facility] HermannHEMATOLOGY 2014-09-29 05:40:0030.2[facility] MwkjzgkFBUQDKGYRG2857-49-75 05:40:008.9[facility] XjmllxcXISJNSWOMG4566-22-11 05:40:007.3[facility] VlddivwDGAQZBMIIC5678-92-99 05:40:08667Qovebsua IaysvvkHUGBFRTQXX4911-27-58 05:40:0017.3[facility] NMPNMBAHJR0246-31-49 05:40:004.44[facility] MryhsfnLZZLFUGOMC3188-24-51 05:40:00 16.7[facility] BiexughLWPISVAKBC4747-35-67 05:40:0014.1[facility] HermannHEMATOLOGY 2014-09-29 05:40:000.1[facility] SpggtthFFQWJTVDTD4414-00-22 05:40:001.7[facility] KifvidwIPSNYTABGJ7923-44-75 05:40:000.2[facility] WdskmfpJUSSDEVRSH4041-87-51 05:40:0010.3[facility] UynapnmIKJDNHJLVO7542-11-35 05:40:0084.3[facility] FNTXZBSDVD5696-12-85 05:40:00Normal (09/29/14 12:40 AM)[facility]annHEMATOLOGY 2014-09-29 05:40:005.1[facility] SjfeovmRZKXNPUKYL8241-57-89 05:40:00Moderate *ABN*(09/29/14 12:40 AM)[facility] QiqpbadINLKUBXOIE1768-29-38 05:40:001+ (09/29/14 12:40 AM)[facility] FipayyvLGSZSESLHW9345-74-50 05:40:001+ *ABN*(09/29/14 12:40 AM) [facility] JoplynwJCPFUZTTBF3299-43-22 05:40:002+ *ABN*(09/29/14 12:40 AM)[facility] HyztczzUUGBRLEAIG9687-67-83 05:40:000.0[facility] TwskmifDFUFURLWVS4557-73-36 05:40:000.0[facility] EerxamzVTGGZXZFCG8894-09-63 05:40:000.8[facility]UR[facility] AND CNPUM7626-36-35 04:54:00Small *ABN*(09/28/14 11:54 PM)[facility] SSHKD5366-77-20 04:54:000.2[facility] KMQTE8256-40-95 04:54:00Negative (09/28/14 11:54 PM)[facility] EGXNR4556-65-93 04:54:00Moderate *ABN*(09/28/14 11:54 PM)[facility] STOOL 2014-09-29 04:54:00Negative *NA*(09/28/14 11:54 PM)[facility] RUKHS8937-28-16 04:54:00 Test Item Value Reference Range Interpretation Comments UA pH (test code = UA pH) 5.5 1 5.0-8.0 [facility] VVEAV8652-65-03 04:54:00 Test Item Value Reference Range Interpretation Comments UA Spec Grav (test code = UA Spec 1.025 1 Grav) [facility] DLXFA8891-77-73 04:54:00Slight Cloudy (09/28/14 11:54 PM)[facility] SLNEW3275-95-12 04:54:00Yellow *NA*(09/28/14 11:54 PM)[facility] LEQGN9585-45-07 04:54:00Negative (09/28/14 11:54 PM) [facility] HSYC5562-49-66 04:54:00Negative (09/28/14 11:54 PM)[facility] HermannCHEM KUZOT0648-32-98 05:46:79492Svxatrib HermannCHEM QRMQQ3871-45-91 05:46:0096[facility] HermannCHEM ISSCI7235-23-26 05:46:000.2[facility] HermannCHEM PNVCW2761-70-46 05:46:0090[facility] HermannCHEM ISKGE2035-20-59 05:46:0017 [facility] HermannCHEM UEXYO6206-64-32 05:46:0023[facility] HermannCHEM PANEL 2013-12-29 05:46:003.5[facility] HermannCHEM UXFDT4005-23-78 05:46:007.1[facility] HermannCHEM ZYJWJ9558-78-84 05:46:008.6[facility] HermannCHEM ZXYKM5885-05-56 05:46:0025[facility] HermannCHEM FMLVZ1504-30-94 05:46:35077Kbvxuyhe HermannCHEM OMSTO0540-82-49 05:46:004.3[facility] HermannCHEM DITCU7761-03-69 05:46:52678 [facility] HermannCHEM GUGBK7724-09-70 05:46:000.8[facility] HermannCHEM PANEL 2013-12-29 05:46:0017[facility] HermannCHEM HEEXQ9628-62-43 05:46:0090[facility] HermannCHEM WIACN6807-99-44 05:46:001.0[facility] HermannCHEM UXRAP2087-79-09 05:46:0012.3[facility] HermannCHEM UXQVQ2158-71-20 05:46:003.6[facility] HermannCHEM DEAFX0311-67-03 05:46:0021[facility] OlncgcoICUMRULWWQ1266-50-98 05:46:0084.0 [facility] GecyfofHSUSFVIYSH0586-13-84 05:46:00 Test Item Value Reference Range Interpretation Comments MCH (test code = MCH) 28.0 pg 27.0-31.0 [facility] SnegeuaOQFNGMXEEF5291-83-01 05:46:0033.3[facility] HermannHEMATOLOGY 2013-12-29 05:46:0013.8[facility] NqxpdgeWBRKOOOCKJ8346-84-65 05:46:47742Bsdfjnua WomytgpPYFDSRUJKL4938-85-50 05:46:0012.2[facility] XffjxppBEZVFRVGKL2664-04-74 05:46:0012.5[facility] IydcspjPEDVKLOLQA5302-72-02 05:46:004.47[facility] [place] TZZRCTDUIG7187-61-26 05:46:0037.5[facility] JhfbzcoTSCYLHASMT2416-78-77 05:46:00 7.2[facility] SezyvwwDCYKBZLBZT2379-87-92 05:46:000.5[facility] HermannHEMATOLOGY 2013-12-29 05:46:001.6[facility] QeaqybjCYZKXDNQDA1767-70-06 05:46:008.0[facility] OicxtbuJLVFGRDUVY9833-58-28 05:46:0025.9[facility] BwvduymPFHNJHCRSP0371-80-82 05:46:000.2[facility] RkygvvlKSNRQPWBSJ7905-49-71 05:46:001.0[facility] KGYPWSNMGU5731-20-74 05:46:003.2[facility] OtzwclgZARZLLOLTV7246-28-31 05:46:007.8 [facility] JpadqjpTJLMQSFYVS2504-74-63 05:46:000.1[facility] HermannHEMATOLOGY 2013-12-29 05:46:0064.0[facility] XHXAR0612-94-06 05:39:00 Test Item Value Reference Range Interpretation Comments UA pH (test code = UA pH) 6.0 1 5.0-8.0 [facility] WNIWH6658-60-55 05:39:00Negative (12/29/13 12:39 AM) [facility] OSRFE2449-91-70 05:39:00Negative (12/29/13 12:39 AM) [facility] WZKMA0265-08-58 05:39:00Clear (12/29/13 12:39 AM) [facility] BHBXC5343-23-09 05:39:00 Test Item Value Reference Range Interpretation Comments UA Spec Grav (test code = UA Spec 1.010 1 Grav) [facility] FCDYV6939-34-70 05:39:00Yellow *NA*(12/29/13 12:39 AM) [facility] BNHLB0077-00-99 05:39:00Negative (12/29/13 12:39 AM) [facility] IXTYQ6304-30-39 05:39:00Negative (12/29/13 12:39 AM) [facility] JYZBF8209-12-45 05:39:000.2[facility] FLIFQ9960-44-17 05:39:00Moderate *ABN*(12/29/13 12:39 AM)[facility] XRAMI1232-36-27 05:39:00Negative *NA*(12/29/13 12:39 AM)[facility] ZIPTB6491-22-07 05:39:00Negative *NA*(12/29/13 12:39 AM)[facility]INE RLOQ8648-71-50 05:39:00Negative (12/29/13 12:39 AM)[facility] UPEXRJZVB8600-68-21 00:05:47526Bglfhoxb HfxpkccBYZHRNPHC8485-43-66 00:05:003.3 [facility] DihmoxwSXPFIFHCB2399-35-16 00:05:63239Zsecgwfk HermannCHEMISTRY 2011-10-23 00:05:0010[facility] GftmejpPVKTVBJWJ7036-96-70 00:05:000.3[facility] JkxbvgjBQUDYIUXJ4882-74-99 00:05:0017[facility] AnzwlkcISNYLFPUN0780-74-01 00:05:0050[facility] KpzhkdmROUWEQCLS5986-96-80 00:05:007.5[facility] UUAUVYIOR0172-36-47 00:05:008.5[facility] EquieogGDBQCYYHE1443-16-14 00:05:004.0 [facility] WiafqepMZWASDKFL9373-87-86 00:05:0024[facility] HermannCHEMISTRY 2011-10-23 00:05:000.6[facility] CkbdknkEHCONABSL0086-40-87 00:05:008[facility] WoytqwqXUFVJGVUO1977-46-15 00:05:0090[facility] LrbpbmfSPPPUZMAQ1032-34-59 00:05:0014.3[facility] RwvmqciCYAHPOKUV2875-00-01 00:05:001.1[facility] UJBDXJJLX6938-91-44 00:05:003.5[facility] LvarjxvRZPPRNLDE2892-62-17 00:05:0013 [facility] YyopksqLRAVCZLHEE0195-59-22 00:05:00 Test Item Value Reference Range Interpretation Comments MCH (test code = MCH) 24.9 pg 27.0-31.0 L [facility] DdvblqsSBLKUDQVTQ6563-01-98 00:05:007.5[facility] HermannHEMATOLOGY 2011-10-23 00:05:91971Mpwiyhqb UvaqtrhOQOEZDCIIH1217-19-52 00:05:0016.3[facility] UrufwlvZOSRYAXLUB6098-62-73 00:05:0032.3[facility] HzazklgKLPVGHCHLC7550-92-75 00:05:0077.3[facility] EwagwlgHSUAEQITTM8364-05-13 00:05:0010.9[facility] PJRFPVJPVP2755-68-16 00:05:009.8[facility] DnokffqDZOCJJFUBH0402-67-73 00:05:00 33.8[facility] VpldaffLADIJLEDXE3383-63-28 00:05:004.38[facility] HermannHEMATOLOGY 2011-10-23 00:05:000.6[facility] VxfylgxDTRQSVFITE6328-21-74 00:05:000.8[facility] SzznbcnEDQDTPPSTL3531-83-65 00:05:002.8[facility] BfqsdvbWJOUJYTXWE9361-93-22 00:05:000.3[facility] SqcttwcNWCXULQVYD1113-05-98 00:05:006.1[facility] XOFECALZKR9489-64-50 00:05:008.3[facility] CjgxjpaCYBVICLALD6285-59-21 00:05:00 62.2[facility] EzrskfrFGQCLLMMGN2699-95-18 00:05:000.1[facility]annHEMATOLOGY 2011-10-23 00:05:000.0[facility] QxugshlADTJQNEPOK8588-67-72 00:05:0028.6[facility] HpisuwtDJNYCAZGTQ2062-17-92 17:31:00Negative (10/19/2011 12:31:00)[facility] VeilwwcSPFQBNURCB8270-87-62 17:31:00Negative *NA*(10/19/2011 12:31:00)[facility] PwxzrsxXLPYAUFNIS7145-36-46 17:31:00Negative *NA*(10/19/2011 12:31:00)[facility] ZxfareeRHZJPFIXCT0875-99-76 17:31:00Negative (10/19/2011 12:31:00)[facility] TwyddqnGFRJLXUWSU6850-57-28 17:31:00Negative (10/19/2011 12:31:00)[facility] HidjymlBWDRMSWHKB5459-86-99 17:31:000.2[facility] EubslnaXREYQNZYZH5940-05-30 17:31:000-2 /HPF (10/19/2011 12:31:00)[facility] XgtzduqXLPALKPYZN2692-17-77 17:31:00Moderate *ABN*(10/19/2011 12:31:00)[facility] MyafmyhSQSVENSFSX1210-83-96 17:31:00Performed (10/19/2011 12:31:00)[facility] HocgjtgUKBNEAKEZT5286-76-50 17:31:00Negative (10/19/2011 12:31:00)[facility] ScrcorlRAZVZDSCEF4261-87-44 17:31:00Many /LPF *ABN*(10/19/2011 12:31:00)[facility] NhbaizfBEXLPYEERV0112-38-53 17:31:00Moderate /LPF *ABN*(10/19/2011 12:31:00)[facility]annURINALYSIS 2011-10-19 17:31:00Occasional /HPF (10/19/2011 12:31:00)[facility] IMWNUGQVCI0655-74-76 17:31:003-5 /HPF *ABN*(10/19/2011 12:31:00)[facility] EVJOXXDKIB7486-88-65 17:31:00Yellow *NA*(10/19/2011 12:31:00)[facility] TSUPJLZPAL1460-80-15 17:31:00Clear (10/19/2011 12:31:00)[facility] BKHWBIXIBL7802-13-64 17:31:00 Test Item Value Reference Range Interpretation Comments UA Spec Grav (test code = UA Spec 1.020 1 N Grav) [facility] RgiycwzDEVVWVVAYK6650-14-82 17:31:00 Test Item Value Reference Range Interpretation Comments UA pH (test code = UA pH) 6.0 1 5.0-8.0 N [facility] HermannINFECTIOUS CCGMWROT5730-12-28 17:30:00Negative 1(10/19/2011 12:30:00)[facility] LhsjiroNTLUYNWFD1329-64-28 17:22:59031Fylawkym [facility] UCRRPBGLA9849-39-98 17:22:000.4[facility] GuwhhtxUUJLEVTYZ2511-16-45 17:22:009 [facility] NenlidbVWMQOAASW3155-83-96 17:22:68018Tkjpedei HermannCHEMISTRY 2011-10-19 17:22:003.2[facility] ZtxhusbPZSYEFTEZ3643-79-95 17:22:000.6[facility] HzvcateDTAXLHZUS9718-11-67 17:22:64657Mdptakhy UbbefnzKEQEEFOLZ9607-12-07 17:22:0025[facility] KircxmhXQTSQWIXE2335-39-03 17:22:0015[facility] FUBVKBFAW3974-34-67 17:22:007.5[facility] FpgeituRLXPMGEMH2137-42-64 17:22:008.7 [facility] NnpwwbiCPNAYOPNE4081-78-30 17:22:0048[facility] HermannCHEMISTRY 2011-10-19 17:22:003.9[facility] XijfwlsLGQOLEJKU0680-87-68 17:22:0010[facility] EdjbrhgANXCSVLLE4948-95-37 17:22:0092[facility] DyvyulnEFHCQUQCK4933-79-36 17:22:001.1[facility] YewycfsMJIOVMFQD2112-77-00 17:22:0013.2[facility] VXOUWQSJS0242-42-62 17:22:003.6[facility] SbazacsQCATAXBYF0552-98-41 17:22:0017 [facility] XsbamqnBHBPPXGBWK4634-21-43 17:22:000.0[facility]annHEMATOLOGY 2011-10-19 17:22:000.0[facility] CmgiothNCTLGTEUSZ3264-27-67 17:22:001.2[facility] ExjzmynCZSRZMBZWW6257-78-51 17:22:001+ *ABN*(10/19/2011 12:22:00)[facility] CywwoazOPTRPLADNY6584-09-11 17:22:00Slight (10/19/2011 12:22:00)[facility] WOGMZORNPN3721-58-70 17:22:001.2[facility] YubyfhnILIQKICMGO6577-58-54 17:22:000.0 [facility] LrvnpmlXEHRPGSNCS1651-90-45 17:22:0011.1[facility]annHEMATOLOGY 2011-10-19 17:22:000.0[facility] WfrcqygSFYWOHAXZN1881-57-85 17:22:008.9[facility] YslbsjfZAQENKJTZV2056-23-45 17:22:0082.4[facility] HxfpzgpXEUCEATXTY2924-30-95 17:22:008.7[facility] HblmwimOJIOXHGPXA9305-97-09 17:22:00Normal (10/19/2011 12:22:00)[facility] LxuzzdyGPTFCSWRKX5322-51-90 17:22:0016.1[facility] AHYXYPYQQN5905-12-13 17:22:73234Tyqjsxyk FsztaedPTJBWGIFVQ1024-80-75 17:22:007.8 [facility] RxrvwdyQPKXBWHCJG3361-50-79 17:22:00 Test Item Value Reference Range Interpretation Comments MCH (test code = MCH) 25.1 pg 27.0-31.0 L [facility] OmohtyjATYJLLCFAA8164-42-22 17:22:0032.0[facility]annHEMATOLOGY 2011-10-19 17:22:0078.5[facility] IzbcnqwBMPWDSERTU7870-48-05 17:22:0010.8[facility] JewlligUUYRIVDSVY1059-51-13 17:22:004.29[facility] RxnapmnOOCQQZSHMB5326-17-99 17:22:0033.7[facility] AkuvqlhKIUHCWCGJY7132-85-70 17:22:0013.5[facility]
[2020-12-16 13:00] LABS: Urine Blood 1+ (Negative); Urine Glucose Negative (Negative); Urine Protein Negative (Negative); Urine Specific Gravity >=1.030 (1.005-1.030); Urine pH 5.5 (5.0-7.0)
--- NOTE | 2020-12-16 13:54 | RAD REPORT ---
EXAM DESCRIPTION: US - Transvaginal Study Probe - 12/16/2020 1:31 pm CLINICAL HISTORY: ABD PAIN Pelvic pain. COMPARISON: Transvaginal Study Probe dated 06/11/2018 FINDINGS: The uterus is normal in size, shape and echotexture. The uterus measures 9 cm small naboth chuy cysts noted. The endometrial stripe measures 8 mm Both ovaries are normal in size, shape and echotexture. The right ovary measures 2.1 cc. The left o vary measures 8.5 cc. A presumably physiologic left ovarian cyst noted. No adnexal masses. Normal Doppler blood flow was demonstrated to both ovaries. No significant pelvic ascites. IMPRESSION: Bilateral ovarian blood flow present. No acute findings identified.
--- NOTE | 2020-12-16 14:12 | ER ---
Nurse's Notes [facility] Name: Caitlyn Dawn Age: 40 yrs Sex: Female : 1980 Arrival Date: 12/16/2020 Time: 12:31 Bed 28 Private MD: Diagnosis: Presentation: 12/16 12:44 Chief complaint: Patient states: sharp pain on my RIGHT side of my stomach. 5 days ago. tw2 my boobs started hurting so so bad but i have had a tubal. my side started hurting and sharp pains. i feel like i am going to throw up and feel really nauseous that started this morning. Chief complaint: Patient states: it almost feels like labor cramps. Chief complaint: Patient states: it also feels like lighting is shooting through the RIGHT side of my face and that started this morning. i havent been feeling bad for at least 5 days now. like all down my right side. Coronavirus screen: nausea, Client presents with at least one sign or symptom that may indicate coronavirus-19. Standard/surgical mask placed on the client. Provider contacted for isolation considerations. Ebola Screen: Patient denies travel to an Ebola-affected area in the 21 days before illness onset. Initial Sepsis Screen: Does the patient meet any 2 criteria? No. Patient's initial sepsis screen is negative. Does the patient have a suspected source of infection? No. Patient's initial sepsis screen is negative. Risk Assessment: Do you want to hurt yourself or someone else? Patient reports no desire to harm self or others. Onset of symptoms was December 16, 2020. 12:44 Method Of Arrival: Ambulatory tw2 12:44 Acuity: MARCELLUS 3 tw2 Triage Assessment: 12:49 General: Appears in no apparent distress. uncomfortable, Behavior is calm, cooperative, tw2 appropriate for age. Pain: Complains of pain in abdomen. GI: Reports lower abdominal pain, upper abdominal pain, nausea. CARD LACER JACQUARD: 12:57 LMP 11/24/2020 tw2 Historical: - Allergies: 12:48 CEPHALOSPORINS; tw2 12:48 Levaquin; tw2 12:48 Rocephin; tw2 - Home Meds: 12:48 None [Active]; tw2 - PMHx: 12:48 Kidney stones; tw2 - PSHx: 12:48 tuballigation, 2013; section; Tummy tuck; Breast implants; Cholecystectomy; tw2 - Immunization history:: Adult Immunizations. - Social history:: Smoking status: . Screenin:57 Abuse screen: Denies threats or abuse. Nutritional screening: No deficits noted. tw2 Tuberculosis screening: No symptoms or risk factors identified. Fall Risk None identified. Assessment: 12:56 Reassessment: urine specimen in urine station at this time, Rosa Figueroa to run tw2 specimen. 14:12 Reassessment: pt received a phone call from son's school. states she had to leave d/t kh1 son having an accident. Vital Signs: 12:44 BP 176 / 97; Pulse 93; Resp 17; Temp 99.3(TE); Pulse Ox 100% on R/A; Weight 52.16 kg tw2 (R); Height 5 ft. 3 in. (160.02 cm); Pain 7/10; 12:44 Body Mass Index 20.37 (52.16 kg, 160.02 cm) tw2 ED Course: 12:31 Patient arrived in ED. as 12:48 Triage completed. tw2 12:49 Arm band placed on. tw2 12:51 Oneyda Sorensen FNP-C is PHCP. kb 12:51 Kamari Rea MD is Attending Physician. kb 13:31 Transvaginal Study (probe) In Process Unspecified. EDMS Administered Medications: No medications were administered Outcome: 14:12 Patient left the ED. kh1 Signatures: Dispatcher [employer] EDMS Oneyda Sorensen FNP-C FNP-Ckb Martinez, Amelia as Wise, Tara, RN RN tw2 Yoselin Ko 1
[2020-12-16 14:23] VITALS: BP 176/97; TEMP 99.3; O2SAT 100
[2020-12-16 15:23] LABS: Urine Specific Gravity/Preg >1.030 (1.005-1.030)
--- NOTE | 2020-12-17 14:12 | EDPHYS ---
Physician Documentation [facility] Name: Caitlyn Dawn Age: 40 yrs Sex: Female : 1980 Arrival Date: 12/16/2020 Time: 12:31 Bed 28 Private MD: ED Physician Kamari Rea HPI: 12/16 18:05 This 40 yrs old Female presents to ER via Ambulatory with complaints of kb Abdominal Pain, Breast Problem - pain. 18:05 The patient presents with abdominal pain right lower quadrant. Onset: The kb symptoms/episode began/occurred 5 day(s) ago. The symptoms do not radiate. Associated signs and symptoms: Pertinent positives: nausea, breast tenderness. The symptoms are described as constant. Modifying factors: The symptoms are alleviated by nothing, the symptoms are aggravated by nothing. Severity of pain: At its worst the pain was moderate in the emergency department the pain is unchanged. The patient has not experienced similar symptoms in the past. The patient has not recently seen a physician. 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 - Social history:: Smoking status: . ROS: 18:03 Constitutional: Negative for fever, chills, and weight loss. kb 18:03 Abdomen/GI: Positive for abdominal pain, of the right lower quadrant. 18:03 All other systems are negative. Exam: 18:05 Constitutional: This is a well developed, well nourished patient who is awake, alert, kb and in no acute distress. Head/Face: Normocephalic, atraumatic. ENT: Moist Mucous membranes Cardiovascular: Regular rate and rhythm with a normal S1 and S2. No gallops, murmurs, or rubs. No pulse deficits. Respiratory: Respirations even and unlabored. No increased work of breathing, no retractions or nasal flaring. Skin: Warm, dry with normal turgor. Normal color. MS/ Extremity: Pulses equal, no cyanosis. Neurovascular intact. Full, normal range of motion. Neuro: Awake and alert, GCS 15, oriented to person, place, time, and situation. Moves all extremities. Normal gait. Psych: Awake, alert, with orientation to person, place and time. Behavior, mood, and affect are within normal limits. 18:05 Abdomen/GI: Inspection: abdomen appears normal, Bowel sounds: normal, in all quadrants, Palpation: soft, in all quadrants, moderate abdominal tenderness, in the right lower quadrant and left lower quadrant. Vital Signs: 12:44 BP 176 / 97; Pulse 93; Resp 17; Temp 99.3(TE); Pulse Ox 100% on R/A; Weight 52.16 kg tw2 (R); Height 5 ft. 3 in. (160.02 cm); Pain 7/10; 12:44 Body Mass Index 20.37 (52.16 kg, 160.02 cm) tw2 MDM: 12:51 Patient medically screened. kb 18:04 Data reviewed: vital signs, nurses notes. Data interpreted: Pulse oximetry: on room air kb is 100 %. Interpretation: normal. ED course: Pt reported her son was involved in an accident shortly after I examined her so she had to leave without further diagnostics. 12/16 13:00 Order name: Urine Dipstick-Ancillary; Complete Time: 13:16 EDMS 12/16 13:05 Order name: Urine --Ancillary (enter results) em1 12/16 14:05 Order name: Basic Metabolic Panel 12/16 14:05 Order name: CBC with Diff 12/16 14:05 Order name: Hepatic Function 12/16 14:05 Order name: Lipase 12/16 12:56 Order name: Transvaginal Study (probe); Complete Time: 13:56 tw2 12/16 12:56 Order name: Urine Dipstick-Ancillary (obtain specimen); Complete Time: 13:03 tw2 12/16 12:56 Order name: Urine Test (obtain specimen); Complete Time: 13:02 tw2 12/16 14:05 Order name: IV Saline Lock 12/16 14:05 Order name: Labs collected and sent kb Administered Medications: No medications were administered Disposition: 12/17 04:46 Co-signature as Attending Physician, Kamari Rea MD I agree with the assessment and kdr plan of care. Disposition Summary: 12/16/20 14:12 Eloped Disposition: after being seen by provider kh1 Reason: (see nurse's notes) 1 Signatures: Dispatcher [employer] Oneyda Savage, BOOTH CASHIER-C BOOTH CASHIER-Kamari Menjivar MD MD [facility] Sun Nicole RN RN tw2 Yoselin Ko [facility]
== END 2020-12-16 14:12 | disposition left against medical advice (07) ==
LOC: ER 12:31
DX: R10.9 Unspecified abdominal pain (principal); N64.4 Mastodynia; Z53.29 Procedure and treatment not carried out because of patient's decision for other reasons; Z87.442 Personal history of urinary calculi; Z98.51 Tubal ligation status; Z98.82 Breast implant status; Z90.49 Acquired absence of other specified parts of digestive tract; Z88.3 Allergy status to other anti-infective agents
CPT/HCPCS: 76830; 81003; 81025; 99282

== ENCOUNTER 2023-10-18 17:19 | Emergency (ER) | payer SELFPAY ==
--- NOTE | 2023-10-18 18:02 | RAD REPORT ---
EXAM DESCRIPTION: RAD - Chest Pa And Lat (2 Views) - 10/18/2023 5:56 pm CLINICAL HISTORY: PAIN COMPARISON: No comparisons FINDINGS: Lines: None. Lungs: No evidence of edema or pneumonia. Pleural: No significant pleural effusions or pneumothorax. Cardiac: The heart size is within normal limits. Mediastinum: Within normal limits. Bones: No acute fractures. Other: None IMPRESSION: No acute cardiopulmonary disease.
[2023-10-18 18:37] LABS: Specific Gravity 1.028 (1.005-1.030)
[2023-10-18 18:39] LABS: Specific Gravity 1.028 (1.005-1.030); Sqamous Epithelial <5 /HPF (None Seen); Urine Bacteria None Seen /HPF (<20); Urine Bilirubin NEGATIVE (Negative); Urine Blood 2+ (Negative); Urine Clarity Clear (Clear); Urine Color Light-Yellow (Yellow); Urine Culture Reflex Order NOT NEEDED; Urine Glucose NEGATIVE (Negative); Urine Ketones NEGATIVE (Negative); Urine Microscopic Reflex YN ORDER UMIC; Urine Mucus 4+ /HPF (None Seen); Urine Nitrite NEGATIVE (Negative); Urine Protein TRACE (Negative); Urine RBC <5 /HPF (None Seen); Urine Urobilinogen Normal (Normal); Urine WBC None Seen /HPF (<5); Urine pH 5.5 (5.0-7.0)
--- NOTE | 2023-10-18 19:35 | RAD REPORT ---
EXAM DESCRIPTION: CTStone Protocol - 10/18/2023 7:20 pm CLINICAL HISTORY: FLANK PAIN COMPARISON: Abdomen Pelvis Wo Contrast dated 04/18/2017 TECHNIQUE: CT of the abdomen and pelvis was performed without contrast. All CT scans are performed using dose optimization technique as appropriate and may include automated exposure control or mA/KV adjustment according to patient size. FINDINGS: Lower chest: No acute abnormality. Bilateral breast prostheses. Surgical clips at the felipe roesophageal junction. Liver: No acute abnormality or suspicious lesions. Biliary: Cholecystectomy. Stomach: No significant focal abnormality. Duodenum: No significant focal abnormality. Pancreas: No significant abnormality. Spleen: No significant abnormality. Adrenal: No suspicious lesions. Kidney/ureter: No hydronephrosis. No renal calculi. Retroperitoneum: No retroperitoneal adenopathy. Vascular: No aneurysm. Bowel: No significant focal abnormality. Normal appendix. Peritoneum: No ascites or free air. Bladder: Grossly unremarkable. Reproductive: No adnexal masses. Bones: No acute fracture. Other: n/a IMPRESSION: No acute intra-abdominal or pelvic finding. No renal or ureteral calculi. Normal appendi x.
--- NOTE | 2023-10-18 19:41 | EDPHYS ---
Physician Documentation [facility] Name: Caitlyn Dawn Age: 43 yrs Sex: Female : 1980 Arrival Date: 10/18/2023 Time: 17:19 Bed 11 Private MD: ED Physician Carlos Alberto Rivera HPI: 10/17 23:00 This 43 yrs old Female presents to ER via Ambulatory with complaints of Left Side Pain. kb 23:00 Patient is a 43-year-old female who presents for left neck pain that radiates down left kb arm as well as left lateral chest pain that is worse with movement and deep breath. States she was doing a lot of yard work yesterday including weed eating. States she took a shower and the pain started shortly after that last night.. TECHNOLOGY ARCHITECT: 19:43 unknown al5 Historical: - Allergies: 17:30 CEPHALOSPORINS; ll1 17:30 Levaquin; ll1 17:30 Rocephin; ll1 17:30 tramadol; ll1 - Home Meds: 19:42 None [Active]; al5 - PMHx: 17:30 Kidney stones; ll1 - PSHx: 17:30 breast implants; section; Cholecystectomy; tuballigation; Tummy tuck; ll1 - Immunization history:: Adult Immunizations up to date. - Infectious Disease History:: Denies. - Social history:: Smoking status: Patient reports the use of cigarette tobacco products, denies chronic smoking, but will smoke occasionally. ROS: 17:53 Constitutional: As per HPI kb Exam: 17:50 Constitutional: This is a well developed, well nourished patient who is awake, alert, kb and in no acute distress. Head/Face: Normocephalic, atraumatic. ENT: Moist Mucous membranes Cardiovascular: Regular rate Respiratory: Respirations even and unlabored. No increased work of breathing. Talking in full sentences Abdomen/GI: Soft, non-tender. No distention Skin: Warm, dry with normal turgor. Normal color. Neuro: Awake and alert, GCS 15, oriented to person, place, time, and situation. Moves all extremities. Normal gait. 17:50 Chest/axilla: Inspection: normal, Palpation: tenderness, that is moderate, of the left lateral anterior chest, that totally reproduces the patient's complaints, 17:50 ECG was reviewed by the Attending Physician. 17:51 Neck: External neck: tenderness, that is moderate, of the left mid cervical area and kb left trapezius, C-spine: appears grossly normal, ROM/movement: pain, that is mild, that is moderate, with rotation to the left, 17:51 Musculoskeletal/extremity: Extremities: grossly normal except: noted in the posterior aspect of left shoulder and left tricep: pain, tenderness, ROM: intact in all extremities, Circulation is intact in all extremities. Sensation intact. Vital Signs: 17:32 BP 144 / 79; Pulse 89; Resp 17; Temp 97.5; Pulse Ox 100% ; Weight 63.5 kg; Height 5 ft. ll1 3 in. ; Pain 8/10; 19:41 BP 125 / 77; Pulse 83; Resp 18; Pulse Ox 100% on R/A; al5 17:32 Body Mass Index 24.80 (63.50 kg, 160.02 cm) ll1 17:32 Pain Scale: Adult ll1 MDM: 17:25 Patient medically screened. kb 22:59 Differential diagnosis: Cervical radiculopathy, kidney stone, muscle strain, abnormal kb EKG. Data reviewed: vital signs, nurses notes. Test considered but Not performed: Labs: CBC, CMP and troponin considered but pain is worse with movement and palpation. Vital signs within normal limits.. Counseling: I had a detailed discussion with the patient and/or guardian regarding the historical points, exam findings, and any diagnostic results supporting the discharge/admit diagnosis, lab results, radiology results, the need for outpatient follow up, a family practitioner, to return to the emergency department if symptoms worsen or persist or if there are any questions or concerns that arise at home. 10/17 17:32 Order name: Test, Urine; Complete Time: 18:44 kb 10/17 17:32 Order name: Urinalysis w/ reflexes; Complete Time: 18:44 kb 10/17 17:32 Order name: Chest Pa And Lat (2 Views) XRAY; Complete Time: 18:06 kb 10/17 18:45 Order name: CT Stone Protocol; Complete Time: 19:36 kb 10/17 17:32 Order name: EKG; Complete Time: 17:32 kb 10/17 17:32 Order name: EKG - Nurse/Tech; Complete Time: 17:50 kb EC:50 Rate is 85 beats/min. Rhythm is regular. QRS [place] is Normal. NM interval is normal at kb 116 msec. QRS interval is normal at 80 msec. QT interval is normal at 440 msec. Administered Medications: 19:56 Drug: predniSONE PO 40 mg PO once Route: PO; al5 19:57 Follow up: Response: No adverse reaction al5 19:56 Drug: Hydrocodone-Acetaminophen PO (7.5 mg-325 mg) 1 tabs PO once Route: PO; al5 19:57 Follow up: Response: No adverse reaction al5 Disposition Summary: 10/18/23 19:40 Discharge Ordered Notes: Location: Home kb Condition: Stable kb Diagnosis - Chest pain on breathing kb - Radiculopathy, cervical region kb Followup: kb - With: Emergency Department - When: As needed - Reason: Worsening of condition Followup: kb - With: Private Physician - When: 2 - 3 days - Reason: Recheck today's complaints, Continuance of care, Re-evaluation by your physician Discharge Instructions: - Discharge Summary Sheet kb - Chest Wall Pain, [id number] kb - Cervical Radiculopathy, [id number] kb Forms: - Medication Reconciliation Form kb - Antibiotic Education kb - Prescription Opioid Use kb - Patient Portal Instructions kb - Leadership Thank You Letter kb Prescriptions: - Prednisone 20 mg Oral Tablet - take 1 tablet ORAL route once daily for 5 days; 5 tablet; Refills: 0, Product kb Selection Permitted - orphenadrine citrate 100 mg Oral Tablet Sustained Release - take 1 tablet ORAL route 2 times per day As needed; 20 tablet; Refills: 0, kb Product Selection Permitted Signatures: Dispatcher [employer] Oneyda Savage, CAFETERIA OPERATOR-C CAFETERIA OPERATOR-Ema Tran RN RN ll1 Carmen Alonso RN RN al5 Corrections: (The following items were deleted from the chart) 17:32 17:30 PSHx: tuballigation; ll1 ll1 19:42 19:42 Allergies: Tramadol HCl; al5 al5
--- NOTE | 2023-10-18 19:41 | ER ---
Nurse's Notes [facility] Name: Caitlyn Dawn Age: 43 yrs Sex: Female : 1980 Arrival Date: 10/18/2023 Time: 17:19 Bed 11 Private MD: Diagnosis: Chest pain on breathing;Radiculopathy, cervical region Presentation: 10/17 17:28 Chief complaint: Patient states: Neck and L sided trunk pain for 2 days after doing ll1 yard work. Coronavirus screen: Client denies travel out of the [place] in the last 14 days. At this time, the client does not indicate any symptoms associated with coronavirus-19. Ebola Screen: Patient denies travel to an Ebola-affected area in the 21 days before illness onset. Initial Sepsis Screen: Does the patient meet any 2 criteria? No. Patient's initial sepsis screen is negative. Does the patient have a suspected source of infection? No. Patient's initial sepsis screen is negative. Risk Assessment: Do you want to hurt yourself or someone else? Patient reports no desire to harm self or others. Onset of symptoms was October 17, 2023. 17:28 Method Of Arrival: Ambulatory ll1 17:28 Acuity: MARCELLUS 4 ll1 BEAUTY SPECIALIST: 19:43 unknown al5 Historical: - Allergies: 17:30 CEPHALOSPORINS; ll1 17:30 Levaquin; ll1 17:30 Rocephin; ll1 17:30 tramadol; ll1 - Home Meds: 19:42 None [Active]; al5 - PMHx: 17:30 Kidney stones; ll1 - PSHx: 17:30 breast implants; section; Cholecystectomy; tuballigation; Tummy tuck; ll1 - Immunization history:: Adult Immunizations up to date. - Infectious Disease History:: Denies. - Social history:: Smoking status: Patient reports the use of cigarette tobacco products, denies chronic smoking, but will smoke occasionally. Screenin:41 [facility] ED Fall Risk Assessment (Adult) History of falling in the last 3 months, al5 including since admission No falls in past 3 months (0 pts) Confusion or Disorientation No (0 pts) Intoxicated or Sedated No (0 pts) Impaired Gait No (0 pts) Mobility Assist Device Used No (0 pt) Altered Elimination No (0 pt) Score/Fall Risk Level 0 - 2 = Low Risk Oriented to surroundings, Maintained a safe environment, Hourly rounding (assess needs \T\ fall precautionary measures) done. Abuse screen: Denies threats or abuse. Denies injuries from another. Nutritional screening: No deficits noted. Tuberculosis screening: No symptoms or risk factors identified. Assessment: 19:39 General: Appears in no apparent distress. uncomfortable, Behavior is calm, cooperative. al5 Pain: Complains of pain in left arm and left tricep and posterior aspect of left shoulder and left trapezius and left mid cervical area and left lateral anterior chest Pain currently is 10 out of 10 on a pain scale. Neuro: Level of Consciousness is awake, alert, obeys commands, Oriented to person, place, time, situation. Cardiovascular: Capillary refill < 3 seconds Patient's skin is warm and dry. Respiratory: Reports pain with cough rib pain Airway is patent Trachea midline Respiratory effort is even, labored, Respiratory pattern is regular, symmetrical. GI: Abdomen is flat, non-distended. : No signs and/or symptoms were reported regarding the genitourinary system. EENT: No signs and/or symptoms were reported regarding the EENT system. Derm: No signs and/or symptoms reported regarding the dermatologic system. Skin is intact, Skin is pink, warm \T\ dry. normal. Musculoskeletal: Reports pain in left arm and left tricep and posterior aspect of left shoulder and left trapezius and left mid cervical area and left lateral anterior chest since yesterday. Pain is 10 out of 10 on a pain scale. Vital Signs: 17:32 BP 144 / 79; Pulse 89; Resp 17; Temp 97.5; Pulse Ox 100% ; Weight 63.5 kg; Height 5 ft. ll1 3 in. ; Pain 8/10; 19:41 BP 125 / 77; Pulse 83; Resp 18; Pulse Ox 100% on R/A; al5 17:32 Body Mass Index 24.80 (63.50 kg, 160.02 cm) ll1 17:32 Pain Scale: Adult ll1 ED Course: 17:23 Patient arrived in ED. mg5 17:24 Oney[facility]orens[facility]-C [facility]. kb 17:25 Carlos Alberto Rivera MD is Attending Physician. kb 17:30 Triage completed. ll1 17:33 Arm band placed on. ll1 17:40 Yonas De Jesus, RN is Primary Nurse. as6 17:56 Chest Pa And Lat (2 Views) XRAY In Process Unspecified. EDMS 19:20 CT Stone Protocol In Process Unspecified. EDMS 19:39 Primary Nurse role handed off by Yonas De Jesus, RN al5 19:39 Carmen Alonso, RN is Primary Nurse. al5 19:42 Patient has correct armband on for positive identification. Bed in low position. Call al5 light in reach. 19:42 No provider procedures requiring assistance completed. al5 19:57 Provided Education on: medications, discharge follow up. al5 19:57 Patient did not have IV access during this emergency room visit. al5 Administered Medications: 19:56 Drug: predniSONE PO 40 mg PO once Route: PO; al5 19:57 Follow up: Response: No adverse reaction al5 19:56 Drug: Hydrocodone-Acetaminophen PO (7.5 mg-325 mg) 1 tabs PO once Route: PO; al5 19:57 Follow up: Response: No adverse reaction al5 Medication: 19:41 VIS not applicable for this client. al5 Outcome: 19:40 Discharge ordered by . kb 19:57 Discharged to home ambulatory, with significant other, al5 19:57 Condition: good 19:57 Discharge instructions given to patient, Instructed on discharge instructions, follow up and referral plans. medication usage, Demonstrated understanding of instructions, follow-up care, medications, 19:57 Patient left the ED. al5 Signatures: Dispatcher [employer] [facility] Oneyda Sorensen, TIMBER ESTIMATOR-C TIMBER ESTIMATOR-Ema Tran RN RN ll1 Yonas De Jesus, RN RN as6 Nikolas Lexi mg5 Carmen Alonso, LM RN al5 Corrections: (The following items were deleted from the chart) 17:32 17:30 PSHx: tuballigation; ll1 ll1 19:42 19:42 Allergies: Tramadol HCl; al5 al5
[2023-10-18] MEDS ORDERED: predniSONE 20 MG TAB ONE (19:48)
[2023-10-18] MEDS ORDERED: HYDROCODONE/APAP 7.5/325 MG TAB ONE (19:48)
[2023-10-18 23:41] VITALS: BP 125/77; TEMP 97.5; O2SAT 100
--- NOTE | 2023-10-19 12:05 | EKG ---
Test Date: 2023-10-18 Test Time: 17:49:04 Repair Specialist: MEASUREMENT RESULTS: Intervals: Rate: 85 NH: 116 QRSD: 80 QT: 370 QTc: 440 Conway: P: 40 NH: 116 QRS: 57 T: 83 INTERPRETIVE STATEMENTS: Normal sinus rhythm Normal ECG No previous ECG available for comparison Electronically Signed On 10-19-23 12:01:56 CDT by Josr Ballesteros
== END 2023-10-18 19:57 | disposition home or self-care (01) ==
LOC: ER 17:19
DX: R07.1 Chest pain on breathing (principal); M54.12 Radiculopathy, cervical region
CPT/HCPCS: 71046; 74176; 76377; 81001; 81025; 93005; 99283; J7512